=== PATIENT | female | born 1985 | race Caucasian/White ===

== ENCOUNTER 2024-05-22 22:22 | Emergency (ER) | payer BC, SELFPAY ==
[2024-05-22 22:28] VITALS: BP 154/72; PULSE 81; O2SAT 100; BMI 51.0
--- NOTE | 2024-05-22 22:44 | CT_ITS ---
[address] [address] Patient Name: YI HOLLINGSWORTH MRN: [facility]:[id number] date: 1985 Sex: F Assigned Patient Location: ER Current Patient Location: ER Accession/Order Number: [id number] Exam Date: 05/22/2024 23:31 Report Date: 05/23/2024 00:16 At the request of: SERINA WAGGONER Procedure: CT abdomen pelvis w con EXAM: CT Abdomen and Pelvis With Intravenous Contrast CLINICAL INDICATION: low abd pain, previous appendectomy TECHNIQUE: Axial computed tomography images of the abdomen and pelvis with intravenous contrast. This CT exam was performed using one or more of the following dose reduction techniques: automated exposure control, adjustment of the mA and/or kV according to patient size, and/or use of iterative reconstruction technique. COMPARISON: 2019 FINDINGS: LUNG BASES: Unremarkable. No mass. No consolidation. ABDOMEN: LIVER: Hepatic steatosis. GALLBLADDER AND BILE DUCTS: The gallbladder is removed. No ductal dilation. PANCREAS: Unremarkable. No mass. No ductal dilation. SPLEEN: 13 cm upper limits of normal ADRENALS: Unremarkable. No mass. KIDNEYS AND URETERS: 1.3 x 0.8 cm right UPJ stone with moderate hydronephrosis. Right-sided urothelial thickening. The distal ureter is decompressed STOMACH AND BOWEL: Unremarkable. No obstruction. No mucosal thickening. PELVIS: APPENDIX: No findings to suggest acute appendicitis. BLADDER: Bladder wall thickening. Query cystitis. REPRODUCTIVE: 5.3 cm right ovarian cyst. ABDOMEN and PELVIS: INTRAPERITONEAL SPACE: Unremarkable. No free air. No significant fluid collection. BONES/JOINTS: No acute fracture. No dislocation. SOFT TISSUES: umbilical hernia containing fat. VASCULATURE: Unremarkable. No abdominal aortic aneurysm. LYMPH NODES: Unremarkable. No enlarged lymph nodes. CT/CT abdomen pelvis w con IMPRESSION: 1. 1.3 x 0.8 cm right UPJ stone with moderate hydronephrosis. The size of the stone is unlikely to pass spontaneously. Urology consultation advised 2. Bladder wall thickening. Query cystitis. 3. 5.3 cm right ovarian cyst. Follow-up ultrasound in 2-3 menstrual cycles to ensure stability 4. Splenomegaly. Slight hepatic steatosis Electronically authenticated by: CHRISTIANO CARTER Date: 05/23/2024 00:16
--- NOTE | 2024-05-22 22:45 | ED.ABDPAIN1 ---
HPI - Abdominal Pain General Chief Complaint: Abdominal Pain Stated Complaint: ABDOMINAL PAIN Time Seen by Provider: 05/22/24 22:24 Source: patient Mode of arrival: walk-in History of Present Illness HPI narrative: 39-year-old female presents for abdominal pain. She has had it for the last 36 hours and is mostly in her right lower quadrant. No trauma or fever. No constipation or diarrhea. Sometimes she has some pain in the mid abdomen but mostly in the right lower quadrant. She has had previous appendectomy. Related Data Previous Rx's ?Medication ?Instructions ?Recorded cephalexin 500 mg capsule 500 mg PO QID 10 days #40 caps 05/23/24 hydrocodone 5 mg-acetaminophen 325 1 tab PO Q6H PRN pain 5 days #20 05/23/24 mg tablet tabs tamsulosin 0.4 mg capsule (Flomax) 0.4 mg PO DAILY #7 caps 05/23/24 Allergies Allergy/AdvReac Type Severity Reaction Status Date / Time sulfamethoxazole (From Allergy Mild Hives Verified 05/22/24 22:28 Bactrim) trimethoprim (From Bactrim) Allergy Mild Hives Verified 05/22/24 22:28 Review of Systems ROS Narrative A ten point review of systems is negative except as noted above. PFSH PFSH Social History Little interest or pleasure in doing things: not at all Feeling down, depressed, or hopeless: not at all Exam Narrative Exam Narrative: Nurses note and vital signs reviewed and patient is not hypoxic. General: The patient appears well and in no apparent distress. Patient is resting comfortably on cart. Skin: Warm, dry, no pallor noted. There is no rash noted. Head: Normocephalic, atraumatic Eye: Normal conjunctiva, no drainage Ears, Nose, Mouth, and Throat: oral mucosa is moist. Nares patent. Cardiovascular: Regular Rate and Rhythm Respiratory: Patient is in no distress, no accessory muscle use, lungs are clear to auscultation, no wheezing, rales or rhonchi Back: non-tender GI: Obese, soft, nondistended. Tenderness is mild in the right lower quadrant Musculoskeletal: The patient has no evidence of calf tenderness, no pitting edema, symmetrical pulses noted bilaterally Neurological: A&O, normal speech Psychiatric: Cooperative Constitutional Vital Signs, click to edit/add: Last Vital Signs Temp 98.9 F 05/22/24 23:23 Pulse 81 05/22/24 22:28 Resp 16 05/22/24 22:28 BP 154/72 H 05/22/24 22:28 Pulse Ox 97 05/22/24 23:06 O2 Del Method Room Air 05/22/24 23:06 Course Vital Signs Vital signs: Vital Signs Pulse Rate 81 05/22/24 22:28 Respiratory Rate 16 05/22/24 22:28 Blood Pressure 154/72 H 05/22/24 22:28 Pulse Oximetry 100 05/22/24 22:28 Oxygen Delivery Method Room Air 05/22/24 22:28 Temperature 98.9 F 05/22/24 23:23 Pulse Rate 81 05/22/24 22:28 Respiratory Rate 16 05/22/24 22:28 Blood Pressure 154/72 H 05/22/24 22:28 Pulse Oximetry 97 05/22/24 23:06 Oxygen Delivery Method Room Air 05/22/24 23:06 MDM - Abdominal Pain MDM Narrative Medical decision making narrative: Large proximal kidney stone is identified and she also has UTI. I have no suspicion of sepsis or pyelonephritis. Additionally there is a urinary tract infection and she was given IV Rocephin and prescribed [place], Flomax, and Keflex. She will follow-up promptly with urology. Treatment diagnosis and follow-up were discussed with the patient. Differential Diagnosis Differential diagnosis: Likely abdominal pain, calculus of kidney, constipation, gastroenteritis and small bowel obstruction Lab Data Attestation: I reviewed the patient's lab results. Labs: Lab Results 05/22/24 05/22/24 Range/Units 22:40 23:00 WBC 9.8 (4.0-11.0) 10^3/uL RBC 4.19 L (4.20-5.40) 10^6/uL Hgb 11.8 L (12.0-16.0) g/dL Hct 36.0 (36.0-48.0) % MCV 85.9 (81.0-99.0) fL MCH 28.2 (26.7-34.0) pg MCHC 32.8 (29.9-35.2) g/dL RDW 14.1 (11.0-15.0) % Plt Count 270 (150-450) 10^3/uL MPV 9.3 L (9.5-13.5) fL Neut % (Auto) 68.2 (43.0-75.0) % Lymph % (Auto) 17.7 L (20.5-60.0) % [place] % (Auto) 10.1 (1.7-12.0) % Eos % (Auto) 3.4 (0.9-7.0) % Baso % (Auto) 0.3 (0.2-2.0) % Neut # (Auto) 6.7 H (1.4-6.5) 10^3/uL Lymph # (Auto) 1.7 (1.2-3.8) 10^3/uL [place] # (Auto) 1.0 H (0.3-0.8) 10^3/uL Eos # (Auto) 0.3 (0.0-0.7) 10^3/uL Baso # (Auto) 0.0 (0.0-0.1) 10^3/uL Abs Immat Gran (auto) 0.03 (0.00-0.03) 10^3/uL Imm/Tot Granulo (auto) 0.3 (0.0-0.5) % Sodium 142 (136-145) mmol/L Potassium 4.0 (3.5-5.1) mmol/L Chloride 104 (98-107) mmol/L Carbon Dioxide 27.1 (21.0-32.0) mmol/L Anion Gap 14.9 BUN 11.0 (7.0-18.0) mg/dL Creatinine 0.90 (0.55-1.02) mg/dL Est GFR ( Amer) >60 (>=60 mL/min/1.73m^2) Est GFR (Non-Af Amer) >60 (>=60 mL/min/1.73m^2) BUN/Creatinine Ratio 12.2 Glucose 97 (74-106) mg/dL Calcium 8.6 (8.5-10.1) mg/dL Serum HCG, Qual Negative (NEGATIVE) Urine Color Lt. yellow (YELLOW) Urine Clarity Cloudy A (CLEAR) Urine pH 6.0 (5.0-9.0) Ur Specific [place] 1.025 (1.005-1.025) Urine Protein 30 A (NEG/TRACE) mg/dL Urine Glucose (UA) Negative (NEGATIVE) mg/dL Urine Ketones Negative (NEGATIVE) mg/dL Urine Occult Blood Large A (NEGATIVE) Urine Nitrite Positive A (NEGATIVE) Urine Bilirubin Negative (NEGATIVE) Urine Urobilinogen 0.2 (0.2-1.0) EU/dL Ur Leukocyte Esterase Moderate A (NEGATIVE) Urine RBC 5-10 A (0-2) #/HPF Urine WBC >100 A (NONE SEEN) #/HPF Ur Squamous Epith Cells Moderate A (NONE/RARE) #/LPF Urine Crystals None seen (None Seen) #/HPF Urine Bacteria Large A (NONE SEEN) #/HPF Urine Casts None seen (NONE SEEN) #/LPF Urine Mucus None seen (NONE SEEN) Ur Culture Indicated? Yes Imaging Data CT scan - abdomen: Radiologist's impression: ITS Impressions Abdomen/Pelvis CT 05/22/24 22:44 IMPRESSION: 1. 1.3 x 0.8 cm right UPJ stone with moderate hydronephrosis. The size of the stone is unlikely to pass spontaneously. Urology consultation advised 2. Bladder wall thickening. Query cystitis. 3. 5.3 cm right ovarian cyst. Follow-up ultrasound in 2-3 menstrual cycles to ensure stability 4. Splenomegaly. Slight hepatic steatosis Electronically authenticated by: CHRISTIANO CARTER Date: 05/23/2024 00:16 Discharge Plan Discharge Chief Complaint: Abdominal Pain Clinical Impression: Kidney stone, UTI (urinary tract infection), Cyst of right ovary Patient Disposition: Home, Self-Care Time of Disposition Decision: 01:56 Condition: Good Mode of Transportation: Private Vehicle Prescriptions / Home Meds: New hydrocodone-acetaminophen 5-325 mg tablet 1 tab PO Q6H PRN (Reason: pain) 5 Days Qty: 20 0RF tamsulosin [Flomax] 0.4 mg capsule 0.4 mg PO DAILY Qty: 7 0RF cephalexin 500 mg capsule 500 mg PO QID 10 Days Qty: 40 0RF Print Language: Maltese Instructions: Ovarian Cyst (ED), Kidney Stones (ED), Urinary Tract Infection in Women (ED) Referrals: BRUNA ANTOINE [Primary Care Provider] - 1 week Ryan Weeks MD [Physician] - As soon as possible
[2024-05-22 23:06] VITALS: O2SAT 97
[2024-05-22 23:11] LABS: Basophils Percent Auto 0.3 % (0.2-2.0); Eosinophils Absolute Auto 0.3 10^3/uL (0.0-0.7); Eosinophils Percent Auto 3.4 % (0.9-7.0); Hemoglobin 11.8 g/dL (12.0-16.0); Immature Granulocytes Abs Auto 0.03 10^3/uL (0.00-0.03); Immature Granulocytes Pct Auto 0.3 % (0.0-0.5); Lymphocytes Absolute Auto 1.7 10^3/uL (1.2-3.8); Lymphocytes Percent Auto 17.7 % (20.5-60.0); Mean Corpuscular HGB Conc 32.8 g/dL (29.9-35.2); Mean Corpuscular Hemoglobin 28.2 pg (26.7-34.0); Mean Corpuscular Volume 85.9 fL (81.0-99.0); Mean Platelet Volume 9.3 fL (9.5-13.5); Monocytes Percent Auto 10.1 % (1.7-12.0); Neutrophils Absolute Auto 6.7 10^3/uL (1.4-6.5); Neutrophils Percent Auto 68.2 % (43.0-75.0); Platelet Count 270 10^3/uL (150-450); Red Blood Count 4.19 10^6/uL (4.20-5.40); Red Cell Distribution Width 14.1 % (11.0-15.0); White Blood Count 9.8 10^3/uL (4.0-11.0)
[2024-05-22 23:11] LABS: Bilirubin Urine NEGATIVE (NEGATIVE); Blood Urine LARGE (NEGATIVE); Clarity Urine CLOUDY (CLEAR); Color Urine LT. YELLOW (YELLOW); Glucose Urine UA NEGATIVE (NEGATIVE); Ketones Urine NEGATIVE (NEGATIVE); Leukocyte Esterase Urine MODERATE (NEGATIVE); Nitrite Urine POSITIVE (NEGATIVE); Protein Urine 30 mg/dL (NEG/TRACE); Specific Gravity Urine 1.025 (1.005-1.025); Urobilinogen Urine 0.2 EU/dL (0.2-1.0)
[2024-05-22 23:17] LABS: Bacteria Urine LARGE #/HPF (NONE SEEN); Cast Seen? NONE SEEN #/LPF (NONE SEEN); Crystals Seen? None Seen #/HPF (None Seen); Mucus Urine NONE SEEN (NONE SEEN); Squamous Epithelial Cell Urine MODERATE #/LPF (NONE/RARE); Urine Culture Indicated YES; WBC Urine >100 #/HPF (NONE SEEN)
[2024-05-22 23:20] LABS: Anion Gap 14.9; BUN Creatinine Ratio 12.2; Calcium 8.6 mg/dL (8.5-10.1); Carbon Dioxide 27.1 mmol/L (21.0-32.0); Chloride 104 mmol/L (98-107); Estimated GFR (African America >60 (>=60 mL/min/1.73m^2); Estimated GFR (Non-African Ame >60 (>=60 mL/min/1.73m^2); Glucose 97 mg/dL (74-106); Sodium 142 mmol/L (136-145)
[2024-05-22 23:21] LABS: HCG Qualitative NEGATIVE (NEGATIVE); Internal Control Within Normal Limits
[2024-05-22 23:23] VITALS: TEMP 37.2
[2024-05-23] MEDS: CEFTRIAXONE 1,000 MG in 0.9 % SODIUM CHLORIDE 50 ML 100 MG IV (00:55)
[2024-05-23] MEDS: KETOROLAC TROMETHAMINE 30 MG/ML VIAL IVP (01:02)
[2024-05-23] MEDS: MORPHINE SULFATE 4 MG/ML VIAL IV (01:37)
== END 2024-05-23 02:15 | disposition home or self-care (01) ==
PROVIDERS: Emergency Provider Emergency Medicine; PCP Family Medicine
DX: N13.2 Hydronephrosis with renal and ureteral calculous obstruction (principal); N83.201 Unspecified ovarian cyst, right side; N39.0 Urinary tract infection, site not specified; Z90.49 Acquired absence of other specified parts of digestive tract
CPT/HCPCS: 36415; 74177; 80048; 81001; 84703; 85025; 87086; 87150; 87186; 96365; 96375; 99285; J0696; J1885; J2270; Q9967

== ENCOUNTER 2024-05-27 11:45 | Day surgery (SDC) | payer BC, SELFPAY ==
[2024-05-27] VITALS (13 sets, daily range): BP systolic 115–162; BP diastolic 55–110; PULSE 57–84; TEMP 36–36.3; O2SAT 94–100; BMI 52.5
--- NOTE | 2024-05-27 | XR_ITS ---
[address] [address] Patient Name: YI HOLLINGSWORTH MRN: [id number] date: 1985 Sex: F Assigned Patient Location: [facility] Current Patient Location: [facility] Accession/Order Number: [id number] Exam Date: 05/27/2024 13:45 Report Date: 05/27/2024 15:50 At the request of: DONALD MONTEIRO Procedure: XR urethrogram retrograde EXAM: XR urethrogram retrograde HISTORY: RIGHT KIDNEY STONE COMPARISON: None. TECHNIQUE: 5 fluoroscopic images. 22.2 mg FINDINGS: 5 images demonstrate retrograde injection of iodinated contrast into the right renal collecting system with placement of a double-J ureteral stent XR/XR urethrogram retrograde IMPRESSION: Ureteral stent placement Electronically authenticated by: DARRELL OLVERA Date: 05/27/2024 15:50
--- OUTSIDE RECORDS SUMMARY | 2024-05-27 12:06 | XMS_ITS | CCD ---
Author Organization [facility] Care Team Providers Care Center Machine Set Up Operator Name Role Phone Nalini Live Unavailable NONE, XXXX Primary Care Physician Unavailab DR GLO Quinonez Primary Care Unavailable SEBASTIEN LYNCH Consulting Unavailable LYNSEY CERVANTES Attending Unavailable LYNSEY CERVANTES Admitting Unavailable Sebastien Owens Attending Unavailable MD Etta Mario Primary Care Provider [phone] [facility]- Beth Espinoza Emergency Provider [phone] MD Nery Rush Admit Provider MD Nery Rush Attending Provider [phone] Blades, Nery Unavailable Drake Sánchez Unavailable Etta Mario Primary Care Unavailable Blades, Nery A Attending Unavailable Blades, Nery A Admitting Unavailable Etta Mario Primary Care Unavailable Blades, Nery A Attending Unavailable Blades, Nery A Admitting Unavailable ROSE GREEN Attending Unavailab RASHAAD Sanabria Attending Unavailable YI IRVING Attending Unavailable Glo Antoine MD Primary Care Provider Yi Irving NP Unavailable Allergies Allergy Classification Reported Allergen(s) Allergy Type Date of Onset Reaction(s) Facility (13 sources) Sulfamethoxazole / Trimethoprim Drug Allergy 3 rash, Unknown [facility] Work Phone: (1 source) Sulfamethoxazole / Trimethoprim Drug Allergy 3 [facility] (3 sources) Sulfamethoxazole; Translations: [sulfamethoxazole] Drug Allergy 3 [facility] (3 sources) Trimethoprim; Translations: [trimethoprim] Drug Allergy 3 [facility] Medications Current Medications Medication Drug Class(es) Dates Sig (Normalized) Sig (Original) acetaminophen 325 mg / HYDROcodone bitartrate 7.5 mg oral tablet (2 sources) Opioid Agonist Start: 07-04-2022 take 1 tablet by mouth every six hours as needed Hydrocodone-Acetam inophen Active 1 TAB PO Q6H 56 July 04, 2022 1 tab orally as needed acetaminophen 325 mg / oxyCODONE hydrochloride 5 mg oral tablet (1 source) Opioid Agonist Start: 06-13-2022 take 1 tablet by mouth every four hours for pain acetaminophen-oxyc odone 325 mg-5 mg Tab 1 tab(s), Oral, q4hr for pain, 12 tab(s), Refill(s) 0, [id number], 154, cm, 06/13/22 8:29:00 EST, Height/Length Dosing, 115, kg, 06/13/22 8:29:00 EST, Weight Dosing Start Date: 06/13/22 Status: Ordered [id number] 200 actuat albuterol 0.09 mg/actuat metered dose inhaler (2 sources) beta2-Adrenergic Agonist Start: 06-01-2023 End: 05-31-2024 take 2 puff(s) by inhalation every four hours for wheezing albuterol HFA 90 mcg/act inhaler Indications: Acute non-recurrent pansinusitis Inhale 2 puffs every 4 (four) hours if needed for wheezing 18 g 06/01/2023 05/31/2024 Active 12 hr buPROPion hydrochloride 90 mg / naltrexone hydrochloride 8 mg extended release oral tablet (2 sources) Opioid Antagonist, Aminoketone take 1 tablet by mouth every twenty-four hours Contrave 8-90 MG 1 tablet in the morning Orally Once a day Active busPIRone (2 sources) BuSpar Active cephalexin 500 mg oral capsule (1 source) Cephalosporin Antibacterial Start: 06-13-2022 End: 06-20-2022 take 1 capsule by mouth every twelve hours cephalexin 500 mg Cap 500 mg = 1 cap(s), Oral, q12hr, X 7 day(s), # 14 cap(s), Refills(s) 0, Pharmacy: [facility] 1429, 154, cm, 06/13/22 8:29:00 EST, Height/Length Dosing, 115, kg, 06/13/22 8:29:00 EST, Weight Dosing Start Date: 06/13/22 Stop Date: 06/20/22 Status: Ordered ethinyl estradiol 0.035 mg / norgestimate 0.25 mg oral tablet (1 source) Progestin, Estrogen Start: 03-12-2023 norgestimate-ethin yl estradiol (Ortho-Cyclen) 0.25-35 MG-MCG tablet Indications: Encounter for initial prescription of contraceptive pills , Irregular menses Take 1 tablet by mouth in the morning. 84 tablet 03/12/2023 Active gabapentin 300 mg oral capsule (14 sources) Anti-epileptic Agent Start: 07-04-2022 take 300 mg by mouth twice daily Gabapentin Active 300 MG PO Twice daily 60 July 04, 2022 12:00am Start: 07-03-2022 End: 07-04-2022 take 100 mg by mouth three times daily Gabapentin Discontinued 100 MG PO Three times daily July 03, 2022 12:00am July 04, 2022 1:38pm take 1 tablet by louis th every twenty-four hours Gabapentin 800 MG 1 tablet Orally Once a day Not-Taking Naltrexone (2 sources) Opioid Antagonist Naltrexone 380 MG as directed Intramuscular Active tiZANidine 4 mg oral capsule (2 sources) Central alpha-2 Adrenergic Agonist Start: take 4 mg by mouth twice daily Tizanidine Active 4 MG PO Twice daily July 04, 2022 12:00am Completed/Discontinued Medications Medication Drug Class(es) Dates Sig (Normalized) Sig (Original) cyclobenzaprine hydrochloride 10 mg oral tablet (2 sources) Muscle Relaxant Start: 07-03-2022 End: 07-04-2022 take 10 mg by mouth three times daily Cyclobenzaprine Discontinued 10 MG PO Three times daily July 03, 2022 12:00am July 04, 2022 1:38pm ibuprofen 800 mg oral tablet (12 sources) Nonsteroidal Anti-inflammatory Drug Start: 07-03-2022 End: 07-04-2022 take 800 mg by mouth three times daily Ibuprofen Discontinued 800 MG PO Three times daily July 03, 2022 12:00am July 04, 2022 1:38pm take 1 tablet by louis th every eight hours at mealtime as needed IBU 800 MG 1 tablet with food or milk as needed Orally every 8 hrs Not-Taking methylPREDNISolone 4 mg oral tablet (4 sources) Corticosteroid Start: 07-30-2022 Medrol (Nadeem) 4 MG as directed Orally Daily for 6 days Jul, Not-Taking ondansetron 8 mg oral tablet (11 sources) Serotonin-3 Receptor Antagonist Start: 03-26-2018 Zofran ODT 8 MG as directed Orally every 8 hrs for 2 days Mar, Not-Taking Sprintec 28 (11 sources) Sprintec 28 Not-Taking Problems Active Problems Problem Classification Problem Date Documented Date Episodic/Chronic Adjustment disorders (2 sources) Adjustment disorder; Translations: [Adjustment disorder, unspecified] Onset: 11-28-2022 11-28-2022 Chronic Osteoarthritis (4 sources) Arthritis of left hip; Translations: [Unilateral primary osteoarthritis, left hip] Onset: 09-25-2022 09-25-2022 Chronic Other nervous system disorders (2 sources) Unable to walk; Translations: [Difficulty in walking, not elsewhere classified] 07-03-2022 Chronic Other nervous system disorders (2 sources) Difficulty in walking, not elsewhere classified; Translations: [Difficulty in walking] 07-04-2022 Chronic Other nervous system disorders (2 sources) Chronic pain; Translations: [Other chronic pain] Onset: 09-25-2022 09-25-2022 Chronic Other non-traumatic joint disorders (3 sources) Pain in left hip; Translations: [PAIN IN LEFT HIP] Onset: 06-11-2022 Episodic Other nutritional; endocrine; and metabolic disorders (2 sources) Morbid obesity; Translations: [Morbid (severe) obesity due to excess calories] Onset: 09-25-2022 09-25-2022 Chronic Spondylosis; intervertebral disc disorders; other back problems (20 sources) Displacement of lumbar intervertebral disc without myelopathy; Translations: [Other intervertebral disc displacement, lumbosacral region] Onset: 09-25-2022 Chronic Unclassified (1 source) Other intervertebral disc displacement, lumbosacral region; Translations: [Other intervertebral disc displacement, lumbosacral region] Onset: 07-11-2022 Urinary tract infections (1 source) Urinary tract infectious disease; Translations: [Urinary tract infection, site not specified] Onset: 06-13-2022 Episodic Past or Other Problems Problem Classification Problem Date Documented Da te Episodic/Chronic Immunizations and screening for infectious disease (1 source) Contact with and (suspected) exposure to other viral communicable diseases; Translations: [Contact with and (suspected) exposure to other viral communicable diseases Z20.828] Onset: 01-12-2021 Resolved: 01-12-2021 Episodic Other nervous system disorders (2 sources) Paresthesia; Translations: [Paresthesia of skin] Onset: 09-25-2022 09-25-2022 Episodic Spondylosis; intervertebral disc disorders; other back problems (16 sources) Sciatica; Translations: [Sciatica, unspecified side] Onset: 06-13-2022 Episodic Results Test Name Value Interpretation Reference Range Facility Basophils Auto (Bld) [#/Vol] Ordered By: Nery Rush on 07-11-2022 Basophils (Bld) [#/Vol] 0.0 10*3/uL 0.0-0.2 [facility] Basophils/100 WBC Auto (Bld) Ordered By: Nery Rush on 07-11-2022 Basophils/100 WBC (Bld) 0.4 % . [facility] Complete Blood Count Auto Di ffon 07-11-2022 Basophils (Bld) [#/Vol] 0.0 10*3/uL Normal 0.0-0.2 [facility] Comment on above: Order Comment: PT IS NON FASTING Result Comment: PERF ORMED BY: [place] [address] PATHOLOGIST RACE BOARD ATTENDANT ZOE GUEVARA M.D. Performed By: #### C BC #### [facility] [address] [place] [address] Basophils/100 WBC (Bld) 0.4 % Normal . [facility] Comment on above: Order Comment: PT IS NON FASTING Performed By: #### C BC #### [facility] [address] [place] [address] Eosinophils (Bld) [#/Vol] 0.4 10*3/uL Normal 0.0-0.45 [facility] Comment on above: Order Comment: PT IS NON FASTING Performed By: #### C BC #### [address] Eosinophils/100 WBC (Bld) 4.2 % Normal . [facility] Comment on above: Order Comment: PT IS NON FASTING Performed By: #### C BC #### [address] Erythrocyte distribution width (RBC) [Ratio] 14.9 % Normal 11.9-15.3 [facility] Comment on above: Order Comment: PT IS NON FASTING Performed By: #### C BC #### [address] Hematocrit (Bld) [Volume fraction] 36.6 % Normal 34.0-46.4 [facility] Comment on above: Order Comment: PT IS NON FASTING Performed By: #### C BC #### [address] Hemoglobin (Bld) [Mass/Vol] 12.3 g/dL Normal 11.8-15.4 [facility] Comment on above: Order Comment: PT IS NON FASTING Performed By: #### C BC #### [address] Lymphocytes (Bld) [#/Vol] 1.9 10*3/uL Normal 1.00-4.8 [facility] Comment on above: Order Comment: PT IS NON FASTING Performed By: #### C BC #### [address] Lymphocytes/100 WBC (Bld) 18.7 % Normal . [facility] Comment on above: Order Comment: PT IS NON FASTING Performed By: #### C BC #### [address] MCH (RBC) [Entitic mass] 28.5 pg Normal 24.7-34.3 [facility] Comment on above: Order Comment: PT IS NON FASTING Performed By: #### C BC #### [address] [place] [address] [facility] MCV (RBC) [Entitic vol] 84.6 fL Normal 80-100 [facility] Comment on above: Order Comment: PT IS NON FASTING Performed By: #### C BC #### [facility] [address] Mean Corpuscular HGB Conc 33.7 g/dL Normal 32.0-35.0 [facility] Comment on above: Order Comment: PT IS NON FASTING Performed By: #### C BC #### [facility] [address] [place] [address] [place] Monocytes (Bld) [#/Vol] 0.7 10*3/uL Normal 0.0-0.8 [facility] Comment on above: Order Comment: PT IS NON FASTING Performed By: #### C BC #### [facility] [address] [place] [id number] [place] Monocytes/100 WBC (Bld) 6.8 % Normal . [facility] Comment on above: Order Comment: PT IS NON FASTING Performed By: #### C BC #### [facility] [address] [place] [address] [place] Neutrophils (Bld) [#/Vol] 7.0 10*3/uL Normal 1.8-7.7 [facility] Comment on above: Order Comment: PT IS NON FASTING Performed By: #### C BC #### [facility] [address] [place] [id number] [place] Neutrophils/100 WBC (Bld) 69.9 % Normal . [facility] Comment on above: Order Comment: PT IS NON FASTING Performed By: #### C BC #### [facility] [address] [place] [id number] [place] NRBC% 0.1 /100{WBC} Normal 0-0.5 [facility] Comment on above: Order Comment: PT IS NON FASTING Performed By: #### C BC #### [facility] [address] [place] [id number] [facility] Platelet mean volume (Bld) [Entitic vol] 7.2 fL Normal 6.3-10.7 [facility] Comment on above: Order Comment: PT IS NON FASTING Performed By: #### C BC #### [facility] [address] Platelets (Bld) [#/Vol] 334 10*3/uL Normal 150-450 [facility] Comment on above: Order Comment: PT IS NON FASTING Performed By: #### C BC #### [facility] [address] RBC (Bld) [#/Vol] 4.33 10*6/uL Normal 3.60-5.00 [facility] Comment on above: Order Comment: PT IS NON FASTING Performed By: #### C BC #### [facility] [address] WBC (Bld) [#/Vol] 10.0 10*3/uL Normal 3.8-11.6 [facility] Comment on above: Order Comment: PT IS NON FASTING Performed By: #### C BC #### [facility] [address] Eosinophils Auto (Bld) [#/Vo l]Ordered By: Nery Blades on 07-11-2022 Eosinophils (Bld) [#/Vol] 0.4 10*3/uL 0.0-0.45 [facility] Eosinophils/100 WBC Auto (Bl d)Ordered By: Nery Blades on 07-11-2022 Eosinophils/100 WBC (Bld) 4.2 % . [facility] Erythrocyte distribution wid th Auto (RBC) [Ratio]Ordered By: Nery Blades on 07-11-2022 Erythrocyte distribution width (RBC) [Ratio] 14.9 % 11.9-15.3 [facility] Hematocrit Auto (Bld) [Volum e fraction]Ordered By: Nery Blades on 07-11-2022 Hematocrit (Bld) [Volume fraction] 36.6 % 34.0-46.4 [facility] Hemoglobin [Mass/volume] in BloodOrdered By: Nery Blades on 07-11-2022 Hemoglobin (Bld) [Mass/Vol] 12.3 g/dL 11.8-15.4 [facility] Leukocytes [#/volume] correc ketan for nucleated erythrocytes in Blood by Automated counOrdered By: Nery Blades on 07-11-2022 WBC corrected for nucl RBC Auto (Bld) [#/Vol] 10.0 10*3/uL 3.8-11.6 [facility] Lymphocytes Auto (Bld) [#/Vo l]Ordered By: Nery Blades on 07-11-2022 Lymphocytes (Bld) [#/Vol] 1.9 10*3/uL 1.00-4.8 [facility] Lymphocytes/100 WBC Auto (Bl d)Ordered By: Nery Blades on 07-11-2022 Lymphocytes/100 WBC (Bld) 18.7 % . [facility] MCH Auto (RBC) [Entitic mass ]Ordered By: Nery Blades on 07-11-2022 MCH (RBC) [Entitic mass] 28.5 pg 24.7-34.3 [facility] MCHC Auto (RBC) [Mass/Vol]Or dered By: Nery Blades on 07-11-2022 MCHC (RBC) [Mass/Vol] 33.7 g/dL 32.0-35.0 [facility] MCV Auto (RBC) [Entitic vol] Ordered By: Nery Blades on 07-11-2022 MCV (RBC) [Entitic vol] 84.6 fL 80-100 [facility] Monocytes Auto (Bld) [#/Vol] Ordered By: Nery Blades on 07-11-2022 Monocytes (Bld) [#/Vol] 0.7 10*3/uL 0.0-0.8 [facility] Monocytes/100 WBC Auto (Bld) Ordered By: Nery Blades on 07-11-2022 Monocytes/100 WBC (Bld) 6.8 % . [facility] Neutrophils Auto (Bld) [#/Vo l]Ordered By: Nery Blades on 07-11-2022 Neutrophils (Bld) [#/Vol] 7.0 10*3/uL 1.8-7.7 [facility] Neutrophils/100 WBC Auto (Bl d)Ordered By: Nery Blades on 07-11-2022 Neutrophils/100 WBC (Bld) 69.9 % . [facility] Nucleated erythrocytes [Pres ence] in Blood by Automated countOrdered By: Nery Blades on 07-11-2022 Nucleated RBC Auto Ql (Bld) 0.1 /100{WBC} 0-0.5 [facility] Platelet mean volume Auto (B ld) [Entitic vol]Ordered By: Nery Blades on 07-11-2022 Platelet mean volume (Bld) [Entitic vol] 7.2 fL 6.3-10.7 [facility] Platelets Auto (Bld) [#/Vol] Ordered By: Nery Blades on 07-11-2022 Platelets (Bld) [#/Vol] 334 10*3/uL 150-450 [facility] RBC Auto (Bld) [#/Vol]Ordere d By: Nery Blades on 07-11-2022 RBC (Bld) [#/Vol] 4.33 10*6/uL 3.60-5.00 [facility] WBC Auto (Bld) [#/Vol]Ordere d By: Nery Blades on 07-11-2022 WBC (Bld) [#/Vol] 10.0 10*3/uL 3.8-11.6 [facility] Basic Metabolic Panelon 06-14 Anion gap [Moles/Vol] 13.3 mmol/L Normal 6.0-15.0 [facility] Comment on above: Performed By: #### B MP, CBC #### [facility] [address] [place] [address] [place] Calcium [Mass/Vol] 8.4 mg/dL Low 8.6-10.3 [facility] Comment on above: Performed By: #### B MP, CBC #### [facility] [address] Chloride [Moles/Vol] 107 mmol/L Normal 98-107 [facility] Comment on above: Performed By: #### B MP, CBC #### [facility] [address] CO2 [Moles/Vol] 21.9 mmol/L Normal 21.0-31.0 [facility] Comment on above: Performed By: #### B MP, CBC #### [facility] [address] Creatinine [Mass/Vol] 0.62 mg/dL Normal 0.60-1.20 [facility] Comment on above: Performed By: #### B MP, CBC #### [facility] [address] [place] [address] [place] Creatinine Clr Calc Pharmacy 148.42 [facility] Comment on above: Result Comment: PERF ORMED BY: [place] [address] PATHOLOGIST [employer]ACE BOARD ATTENDANT ZOE GUEVARA M.D. Performed By: #### B MP, CBC #### [facility] [address] GFR/1.73 sq M.predicted MDRD (S/P/Bld) [Vol rate/Area] mL/min/{1.73_m2} [facility] Comment on above: Performed By: #### B MP, CBC #### [facility] [address] Glucose [Mass/Vol] 133 mg/dL High 74-109 [facility] Comment on above: Result Comment: [place] Glucose Reference Range is dependent on time and content of last meal. Glucose of more than 200 mg/dL in a nonstressed, ambulatory subject supports the diagnosis of Diabetes Mellitus. ADA recommended reference range Performed By: #### B MP, CBC #### [facility] [address] [place] [address] [place] Potassium [Moles/Vol] 4.2 mmol/L Normal 3.5-5.1 [facility] Comment on above: Performed By: #### B MP, CBC #### [facility] [address] Sodium [Moles/Vol] 138 mmol/L Normal 136-145 [facility] Comment on above: Performed By: #### B MP, CBC #### [facility] [address] Urea nitrogen [Mass/Vol] 21 mg/dL Normal 7-25 [facility] Comment on above: Performed By: #### B MP, CBC #### [facility] [address] Basophils Auto (Bld) [#/Vol] Ordered By: Nery Blades on 07-04-2022 Basophils (Bld) [#/Vol] 0.0 10*3/uL 0.0-0.2 [facility] Basophils/100 WBC Auto (Bld) Ordered By: Nery Blades on 07-04-2022 Basophils/100 WBC (Bld) 0.2 % . [facility] Calcium [Mass/volume] in Ser um or PlasmaOrdered By: Nery Blades on 07-04-2022 Calcium [Mass/Vol] 8.4 mg/dL 8.6-10.3 [facility] Carbon dioxide, total [Moles /volume] in Serum or PlasmaOrdered By: Nery Blades on 07-04-2022 CO2 [Moles/Vol] 21.9 mmol/L 21.0-31.0 [facility] Chloride [Moles/volume] in S monika or PlasmaOrdered By: Nery Blades on 07-04-2022 Chloride [Moles/Vol] 107 mmol/L 98-107 [facility] Complete Blood Count Auto Di ffon 07-04-2022 Basophils (Bld) [#/Vol] 0.0 10*3/uL Normal 0.0-0.2 [facility] Comment on above: Result Comment: PERF ORMED BY: [place] [address] PATHOLOGIST RACE BOARD ATTENDANT ZOE GUEVARA M.D. Performed By: #### B MP, CBC #### [facility] [address] Basophils/100 WBC (Bld) 0.2 % Normal . [facility] Comment on above: Performed By: #### B MP, CBC #### [facility] [address] Eosinophils (Bld) [#/Vol] 0.0 10*3/uL Normal 0.0-0.45 [facility] Comment on above: Performed By: #### B MP, CBC #### [facility] [address] [place] [address] [place] Eosinophils/100 WBC (Bld) 0.0 % Normal . [facility] Comment on above: Performed By: #### B MP, CBC #### [address] Erythrocyte distribution width (RBC) [Ratio] 15.2 % Normal 11.9-15.3 [facility] Comment on above: Performed By: #### B MP, CBC #### [address] Hematocrit (Bld) [Volume fraction] 35.3 % Normal 34.0-46.4 [facility] Comment on above: Performed By: #### B MP, CBC #### [address] Hemoglobin (Bld) [Mass/Vol] 12.0 g/dL Normal 11.8-15.4 [facility] Comment on above: Performed By: #### B MP, CBC #### [address] Lymphocytes (Bld) [#/Vol] 0.6 10*3/uL Low 1.00-4.8 [facility] Comment on above: Performed By: #### B MP, CBC #### [place] [address] [place] Lymphocytes/100 WBC (Bld) 6.3 % Normal . [facility] Comment on above: Performed By: #### B MP, CBC #### [address] MCH (RBC) [Entitic mass] 28.4 pg Normal 24.7-34.3 [facility] Comment on above: Performed By: #### B MP, CBC #### [address] [place] [address] [place] MCV (RBC) [Entitic vol] 83.6 fL Normal 80-100 [facility] Comment on above: Performed By: #### B MP, CBC #### [address] Mean Corpuscular HGB Conc 34.0 g/dL Normal 32.0-35.0 [facility] Comment on above: Performed By: #### B MP, CBC #### [address] Monocytes (Bld) [#/Vol] 0.1 10*3/uL Normal 0.0-0.8 [facility] Comment on above: Performed By: #### B MP, CBC #### [address] Monocytes/100 WBC (Bld) 1.4 % Normal . [facility] Comment on above: Performed By: #### B MP, CBC #### [address] Neutrophils (Bld) [#/Vol] 9.0 10*3/uL High 1.8-7.7 [facility] Comment on above: Performed By: #### B MP, CBC #### [address] Neutrophils/100 WBC (Bld) 92.1 % Normal . [facility] Comment on above: Performed By: #### B MP, CBC #### [address] NRBC% 0.0 /100{WBC} Normal 0-0.5 [facility] Comment on above: Performed By: #### B MP, CBC #### [address] Platelet mean volume (Bld) [Entitic vol] 7.0 fL Normal 6.3-10.7 [facility] Comment on above: Performed By: #### B MP, CBC #### [address] Platelets (Bld) [#/Vol] 309 10*3/uL Normal 150-450 [facility] Comment on above: Performed By: #### B MP, CBC #### [facility] [address] RBC (Bld) [#/Vol] 4.23 10*6/uL Normal 3.60-5.00 [facility] Comment on above: Performed By: #### B MP, CBC #### [facility] [address] WBC (Bld) [#/Vol] 9.8 10*3/uL Normal 3.8-11.6 [facility] Comment on above: Performed By: #### B MP, CBC #### [facility] [address] Creatinine [Mass/volume] in Serum or PlasmaOrdered By: Nery Rush on 07-04-2022 Creatinine [Mass/Vol] 0.62 mg/dL 0.60-1.20 [facility] Eosinophils Auto (Bld) [#/Vo l]Ordered By: Nery Blades on 07-04-2022 Eosinophils (Bld) [#/Vol] 0.0 10*3/uL 0.0-0.45 [facility] Eosinophils/100 WBC Auto (Bl d)Ordered By: Nery Blades on 07-04-2022 Eosinophils/100 WBC (Bld) 0.0 % . [facility] Erythrocyte distribution wid th Auto (RBC) [Ratio]Ordered By: Nery Rush on 07-04-2022 Erythrocyte distribution width (RBC) [Ratio] 15.2 % 11.9-15.3 [facility] Glucose [Mass/volume] in Ser um or PlasmaOrdered By: Nery Rush on 07-04-2022 Glucose [Mass/Vol] 133 mg/dL 74-109 [facility] Comment on above: ADA recommended refe rence rangeRandom Glucose Reference Range is dependent on time and content of last meal. Glucose of more than 200 mg/dL in a nonstressed, ambulatory subject supports the diagnosis of Diabetes Mellitus. Hematocrit Auto (Bld) [Volum e fraction]Ordered By: Nery Rush on 07-04-2022 Hematocrit (Bld) [Volume fraction] 35.3 % 34.0-46.4 [facility] Hemoglobin [Mass/volume] in BloodOrdered By: Nery Rush on 07-04-2022 Hemoglobin (Bld) [Mass/Vol] 12.0 g/dL 11.8-15.4 [facility] Laboratory - Chemistry and C hemistry - challengeOrdered By: Nery Rush on 07-04-2022 GFR/1.73 sq M.predicted MDRD (S/P/Bld) [Vol rate/Area] mL/min/{1.73_m2} [facility] Leukocytes [#/volume] correc ketan for nucleated erythrocytes in Blood by Automated counOrdered By: Nery Rush on 07-04-2022 WBC corrected for nucl RBC Auto (Bld) [#/Vol] 9.8 10*3/uL 3.8-11.6 [facility] Lymphocytes Auto (Bld) [#/Vo l]Ordered By: Nery Rush on 07-04-2022 Lymphocytes (Bld) [#/Vol] 0.6 10*3/uL 1.00-4.8 [facility] Lymphocytes/100 WBC Auto (Bl d)Ordered By: Nery Rush on 07-04-2022 Lymphocytes/100 WBC (Bld) 6.3 % . [facility] MCH Auto (RBC) [Entitic mass ]Ordered By: Nery Rush on 07-04-2022 MCH (RBC) [Entitic mass] 28.4 pg 24.7-34.3 [facility] MCHC Auto (RBC) [Mass/Vol]Or dered By: Nery Rush on 07-04-2022 MCHC (RBC) [Mass/Vol] 34.0 g/dL 32.0-35.0 [facility] MCV Auto (RBC) [Entitic vol] Ordered By: Nery Rush on 07-04-2022 MCV (RBC) [Entitic vol] 83.6 fL 80-100 [facility] Monocytes Auto (Bld) [#/Vol] Ordered By: Nery Blades on 07-04-2022 Monocytes (Bld) [#/Vol] 0.1 10*3/uL 0.0-0.8 [facility] Monocytes/100 WBC Auto (Bld) Ordered By: Nery Blades on 07-04-2022 Monocytes/100 WBC (Bld) 1.4 % . [facility] Neutrophils Auto (Bld) [#/Vo l]Ordered By: Nery Blades on 07-04-2022 Neutrophils (Bld) [#/Vol] 9.0 10*3/uL 1.8-7.7 [facility] Neutrophils/100 WBC Auto (Bl d)Ordered By: Nery Blades on 07-04-2022 Neutrophils/100 WBC (Bld) 92.1 % . [facility] No Panel InformationOrdered By: Nery Blades on 07-04-2022 Pharmacy Creatinine Clearance (Chem 148.42 [facility] Nucleated erythrocytes [Pres ence] in Blood by Automated countOrdered By: Nery Blades on 07-04-2022 Nucleated RBC Auto Ql (Bld) 0.0 /100{WBC} 0-0.5 [facility] Platelet mean volume Auto (B ld) [Entitic vol]Ordered By: Nery Blades on 07-04-2022 Platelet mean volume (Bld) [Entitic vol] 7.0 fL 6.3-10.7 [facility] Platelets Auto (Bld) [#/Vol] Ordered By: Nery Blades on 07-04-2022 Platelets (Bld) [#/Vol] 309 10*3/uL 150-450 [facility] Potassium [Moles/volume] in Serum or PlasmaOrdered By: Nery Blades on 07-04-2022 Potassium [Moles/Vol] 4.2 mmol/L 3.5-5.1 [facility] RBC Auto (Bld) [#/Vol]Ordere d By: Nery Blades on 07-04-2022 RBC (Bld) [#/Vol] 4.23 10*6/uL 3.60-5.00 [facility] Serum or plasma anion gap de terminationOrdered By: Nery Rush on 07-04-2022 Anion gap [Moles/Vol] 13.3 mmol/L 6.0-15.0 [facility] Sodium [Moles/volume] in Ser um or PlasmaOrdered By: Nery Blades on 07-04-2022 Sodium [Moles/Vol] 138 mmol/L 136-145 [facility] Urea nitrogen [Mass/volume] in Serum or PlasmaOrdered By: Nery Rush on 07-04-2022 Urea nitrogen [Mass/Vol] 21 mg/dL 7-25 [facility] WBC Auto (Bld) [#/Vol]Ordere d By: Nery Rush on 07-04-2022 WBC (Bld) [#/Vol] 9.8 10*3/uL 3.8-11.6 [facility] HCG ( test) IA.rapi d Ql (U)Ordered By: Manny Keene on 07-03-2022 HCG ( test) Ql (U) Negative [facility] HCG,Urineon 07-03-2022 Beta HCG ( test) Ql (U) Negative Normal [facility] Comment on above: Result Comment: PERF ORMED BY: [place] [address] PATHOLOGIST [employer]ACE BOARD ATTENDANT ZOE GUEVARA M.D. Performed By: #### U HCG #### [address] XR lumbar spine 1Von 023 XR lumbar spine 1V [facility] [place] [address] XRay Report Signed Patient: Yi Palomino MR#: [id number] : 1985 Acct:[id number] Age/Sex: 37 / F ADM Date: 07/03/22 Loc: Room: 6A4398-3 Type: ADM IN Attending Dr: Nery Rush MD Copies to: Nery Rush MD Ordering Provider: Nery Rush MD Date of Service: 07/03/22 XR/XR lumbar spine 1V: L5-S1 DISCECTOMY Fluoroscopic assessment for L5-S1 discectomy HISTORY:L5-S1 discectomy 2 image was obtained. Cumulative Air Kerma in mGy: 4.7 mGy Lumbar localization performed. XR/XR lumbar spine 1V IMPRESSION: Lumbar localization Impression dictated by: Steven Nicole M.D.07/03/2022 7:09 PM Dictation Location: [place] [address] Transcribed By: [facility] 07/03/221908 Dictated By: Steven Nicole DO 07/03/221907 Signed By: 07/03/221908 [facility] C Urineon 06-15-2022 Bacteria identified Cx Nom (U) Microbiology PROCEDURE: Urine Culture [R1] SOURCE: U CleanCatch BODY SITE: COLLECTED DATE/TIME: 06/13/2022 10:37 EST RECEIVED DATE/TIME: 06/13/2022 12:06 EST START DATE/TIME: 06/13/2022 12:06 EST FREE TEXT SOURCE: Sebastien Owens DO, DO, Kevin M. FINAL REPORTS Final Report [] Verified Date/Time: 06/15/2022 09:06 EST >100,000 cfu/ml Escherichia coli SUSCEPTIBILITY RESULTS LEGEND: S=Susceptible, N/R=Not Reported, Blank=Data not available, or drug not advisable or tested, I=Intermediate, ESBL=Extended spectrum beta-lactamase, R=Resistant, TFG=Thymidine-depe ndent strain, SACHA=Beta-lactamas e positive, MICHEL=mcg/m;(mg/L), S*=Predicted susceptible interp, R*=Predicted resistant interp EC Antibiotic MICHEL Dilutn MICHEL Interp Amikacin <=16 S Ampicillin <=8 S Ampicillin/ <=8/4 S Sulbactam Aztreonam <=4 S Cefazolin <=2 S Cefepime <=2 S Cefoxitin <=8 S Ceftazidime <=1 S Ceftazidime/ <=8 S Avibactam Ceftriaxone <=1 S Ciprofloxacin <=1 S Ertapenem <=0.5 S Gentamicin <=4 S Levofloxacin <=2 S Meropenem <=1 S Nitrofurantoin <=32 S Piperacillin/ <=16 S Tazobactam Tetracycline <=4 S Tigecycline <=2 S Tobramycin <=4 S Trimethoprim/ <=2/38 S Sulfa Performing Locations R1: This test was performed at: [facility], [address] [place] [address], [phone] , , [facility] Comment on above: Performed By: #### 1 [id number], [id number] #### [facility] [address] [place] [address] Coding Summary.on 06-15-2022 Coding Summary. [id number] 4DWm6yRm+PGhlYWQ+P S8RVOFjG45syNTsoF6 PA0gLFX8RCFACHZIRT V7VPD1fcTK4PMkwD9S ybiAv WzzuwLKkGE86RAa1YW P6dLbwEFdvaK5csSCx G6x4MbRwCH54vL77TS vlOKNbTsL1VbQrmbkg bWFy F9fnCjAhaADiMfp+PH RhYmxlIHdpZHRoPScx BYAzLkIcmEbxFO3zPv 9yZGVyLWNvbGxhcHNl OiBj r5xxHWAuJQilAV4rwS ugP1OayPV5VICrc0v3 Ps52aUL+VLXfVMF7iV suXBova302SwIcz9ek IDM3 cWCkZZfwNJC1N98tj5 T3NMJjMESzDBA6vSW0 fU7tjVogimmxO0WbnF GbIiU7DBM6iMCphT5t bGln pzfugG2mKpu+Q09ESU 6KFLBPPV7GIip4Q7Ov PjwvdHI+GT58LDKrEF 21fNEcxNOsf2gvzWx4 JzEw VWYpJNX6mXnmNYeuq2 TrRJNwD87yrPMcf5N6 IGNvbGxhcHNlOyBlbX F9nE3qCIwcbbnml5bt dzsn Mpcam9lvog94iA60K8 5fIVgwKUSpBUZ4KDGm YYMszBfotx9rcK1vLz 8+KDocp6qrb5qtgAy4 IjIw GCZmcaAohXywZHJ8t5 QaBn19Q3UizHtys6Tg Npn7rs11kLEft6A3kL R4GKyfUBFfiO9vVYad ZnQ6 INWiXhSjiL46jZJhDI qeTf6diLwwnFezFW8t DEKfnidpCPXhkM1zNN PjnWDtdYcqRE2hSFRz bjtm w660GpUeTBQ4GPUxyU IyI5IlxE6zKjMlXWBi MHKvB7PdmNXfPXuaE6 82RBwwUhX4OZTzomOe Y2Fs GNYteKlsAqZ4r7A1Gx 5Cv7FrptlhLET6QBwa NZFgKgKhVqXiVtX7W1 BmIgn8DNEtqUitOK2v J3Bh GCMeistbbffhvIX2FS UuLXOfrB78sKTjCGlm Wx7ik6B5t689VAEmTT MvaA88Vj5vcRxiZLLr dCBU bW4tspngh7ynkrgeUb JsYCRhOOg4DJe0XYTv xBpnUvFcCNL3HaW8SK V2nTJatH7ecFbtkerg dG9w Oyc+U42rpI9ySGV8IV L0linrTYJmrjWoLX12 RR02D8NsXwrwvSBbtG U+VBYgyrFfqUnfCK4q YmFj m5uqr2GnMGojM3QvOZ EjBMvxIzz2FKNeHSA8 oTH9pB4hRPLpWTsfe6 K6oCP7P5KpubEzbz9w b2xs DGEgGAlqV28zfYDee6 M1CLVwpYM9CGGezFlm FaAfjA39Mll+PGNvbG icl5VgZnmuv9atg8hc dGg9 IjMwJSIgdmFsaWduPS A7z9UxNd68B63yTZjh ZHRoPSIxNSUiIHZhbG kzhk6unW8bLr5+PGNv bCB3 xIR0mA4pPRSqYfV3EI jgN507GwYkmIGxTbhn a0qvq3ycjMa0KqKvHJ IhdbNdmYrqUKG1r9Wt Lz48 W09gVCrvMNBmSTDlQR VlYZBawAubgs3zeC0p Ii8+JJ6lp8qirm11bU 48dHI+HDXeTMB8vOxm PSdw QVHpyU2gWGyyPdH2WB OaLmKtnP14xQVxPDmz Vd5ipRjeyLofHF1kAW Ulnivmb995SjCdz3dg IDEw zNThRIhqCTK2G14fn8 F5NIRhOXUpMKT7iZF9 aA9nwZkwsnphsUZipD sgdmVydGljYWwtYWxp Z246 IHRvcDsnPlBhdGllbn MbUqNiOKy9I3ZfYxo3 IXFuqUhbSF3bkGRgCR wpFj6moPvetUnqRJ2q NTBp mwqyw375JzTod0tzXL JvcADpVLneITD7V37y g1X9GMOfWPLhPJC0sE U3pU9kwZidniqmvUXp dDsg dmVydGljYWwtYWxpZ2 46IHRvcDsnPkJpcnRo JVKkhAG3NI67BT76jL Yjq1Z1cIZ2I8UiDXTi bmct mkwjvCK2YYVhKZMrxT 65Tn5ccMupHk7iSIHs APR4QXHtaGUkC3VdgI 1hIsSpTVVbRHInQ9Dv eHQt LFwtB599RDloDdV3FU OijbNlY5EfFMUpvVnk TjR2t7W7Pj8OX7Z6NJ 72AR78tKNur5A7hGQ2 J3Bh CYKxtrsyydxylMB1GD FkYLWdxY76Zx8hmOaf Up8hTUOkTVP1DTVonK RfP1IlqJ1iKpIkSKYy MDAw W5QfcDYoLCnmA510NC kxQzL5FUZwgwMxA5Mi MGXgtIxtRaR2m8N6Py 2REXa1LZ91AG80kTTy c3R5 nFU7I9TfVPIuzmisvb lejVU3HFTlDSPuqY46 Qh1yeHypBv9zLWKeZS Z6EWIkjXJgD2EvtU3v OiAj LGRhFCNiA4CkhPKiGD ljJ312TTboLyR4OYGz sqXgH2ChUMJkcKyhXh A1f1S9Fv4HUYVbPV71 IFR5 mBY8ZG29AB06H1MsWf wvdGFibGU+PHRhYmxl IHdpZHRoPScxMDAlJy LmsUzqIM5zPo1mJPTe LWNv mQaiwRWeXyGhl3paAV ShYFmjZY1bnEtxS3So xRD2NSRba4n8Pi08G9 9iO6ZtnSC+PGNvbCB3 aWR0 pY2dUiJgHtY9GPivB9 65UeJecINnUnvgp3nd h5dnvAs3MfQ9SLJzaz HziZqiKXG2o7WqDd94 Y29s IHdpZHRoPSIxNSUiIH CfrFauyp5dzL1xIr8+ NXQfqAA7vSO2fB6gMb SzIiC7XVbqY472XbVq cCIv Jbwin7cyw9zzrYq3Fx IwJSIgdmFsaWduPSJ0 e6EpZk88D5CxeXfdw9 RxYxv8pi48zZUip4R6 bGU9 D1UtYYTcpmcdhAMmpJ qkGP4bCIPwlqhtZGMw vB1sLZUhU6s6ZrFnQt N9HYabV9BfzeF0WAPa cHQg KKavHJG9Q20bn3M4BQ TgCVPrXNI3iGK7rH2t bGlnbjogbGVmdDsgdm RsmZayEXekAAnjA720 IHRv jJiqVCViqR4pCOUibM ZzjOerVC7oZWMidozm Ad3XFtFCBcBaYNVDNu JBAWJ4L3XhTxw1SXUf dHls TO7qmBAqLBdrAw7lsY opqNigYE8eORFxnvgu YDBaaC0pWTTksPUhiD ywLM9wGBUwlyofk399 OiAx NGD6LLTzjMReL9MviS 5yBuFzABDzGDMmH2Xy lSReKCzbP435HWugOx U8VGXjeeFsR1RtWMDk aWdu XtR7y1G5Cg5mZn8yHH 8eTAi2QB63IM43wCRx m0G2uVF5E1IhFQYpmy xdlioxcOW4REYaQSOk aW47 gRDhYVouLm7so9F3h1 05LUXgWPRfzJ61Xe6i tVumCUPylWQOiT9xwy lgg8wpqnhkJnRsMKOc MDt0 FSx9MQEnaScuWiIbSM B1IjU9IKY2yGStjW6u hCgrdfsxtF5rPwn+Mz KoVQTvcsT9L8ZnFkm5 ZCBz pUepCP2xoLGpFSawAh 7koEfizVhjWZ6cILQd fppwCSOxhB8yXLAbwJ QvbWxvXU1jRPAswlkg b250 UoQlBYM0XKNldCHoM3 KwcC7sZlBuOEOlVAXl G7EqcUYsUFbeR182ZB npCeY9OQBdfeUxZ0Bh LWFs yJjrPoC5z9K2Ok7EYA 7oqHA3A2YyFjj4MABs eJuqFT2shGBvZZjhKw 5snUpppUcqCY2yLLNr bjtw BNAbdL2lIEKidQUgyL vlSR2vEOElqdykb202 FgFzMAF1XJHldNKiS5 BewE7nRvWhINTaTFQx O3Rl oAOtVXuxY217FEvpGu X2PWGpbyXyB4VcCBCx tFkcWlA6b1D7Dh6LiB YbS8DoW5n9X2DlCvkj dHI+ RL43CQUbXE11fCWawM Qni4hbmZp0KvEdJMHu ZHV6sRbiTNayy8UvEM CoW07sxNAet1F0QHRm bGxh tNFfDxNpgIF3dD3lER sbkbsbr6crxmkaZoyr s9qcam53sX08K77cBN dpZHRoPSIzMCUiIHZh bGln tf7epR7zLr8+PGNvbC L0kWU9rL6hRgFiKcF9 GQjvV821VlAvoIDuUi psq5cgu5lkmZl9VhYp JSIg fqVcgOpoNPF6e6HqPv 96R59wVUvdBGPbEPTt ASQvJFCamIyraw5xjT 9wIi8+RW8re2vglk67 cD48 dHI+LKOfRII7qLasMG daLCNefB6dADopOoR5 VULyUdNjiR66uQPrDS tnWn6rjSyahMraAQ9n NTBp hzmvg389CyChx6lePO PsaLCaBKxqQKG8D71b i1C5QOBsMHZcOED0sV T3nE2fbHuitcqrjAQs dDsg dmVydGljYWwtYWxpZ2 46IHRvcDsnPlBoeXNp O5zazpAYMG8nLnplyS Q+WKQtYKO5rVzqBOja YWRk aZ9pKNTeY5n5IuFtDh G9BGvpN7DkumG1MAAw dWEsBQFzwKZHsJ0dmz vvf9hcwvfwHiZmLMKg MDt0 LHc0PONdbIruKaFqMN O5MpO8NUG5eQGmyB2r dEdtdxbojH3dEwl+Rk lOOjwvdGQ+PHRkIHN0 eWxl ILakMDHfdH2eGLThB0 n9KrJlVjT2DUunM3Am oqG5AMKeuUUgGLMlrR HDhL4yiixly2iylgyy IzAw UIUzZTc9SFs9BEEqwW smNlRvOXA8DkV6FQU4 wCAtnB9vhQarsjcfsY 9wOyc+TVJOOjwvdGQ+ PHRk EZF7jEivZAduKFKlbM 0bJYYgF7b8FyEqGpL2 KQtsB5BjiaT7UYEgfK QmCANvyIWSpO5ifkvx b2xv orqwTqElKVVqNEb6DY h6JAJhgGasTlJkYJT2 RcR7QNF5pILplB6llJ lnvduomT9tDal+UGF5 ZXI6 CX69RB85H4PmHxrgjX FibGU+PHRhYmxlIHdp ZHRoPScxMDAlJyBzdH siEK3tZi0iMARdWSUb bGxh cHNl (more content not included)... Normal [facility] Auto Diffon 06-13-2022 Basophils/100 WBC (Bld) 1.0 % Normal 0.0-2.0 [facility] Comment on above: Order Comment: Order Added by Discern Expert. Performed By: #### 2 [id number], [id number], [id number], 7345366, [id number] #### [facility] [address] [place] [address] Basophils/Leukocytes Auto (Bld) [Pure # fraction] 0.1 E9/L Normal 0.0-0.2 [facility] Comment on above: Order Comment: Order Added by Discern Expert. Performed By: #### 2 [id number], 0366725, [id number], 2177588, 2380067 #### [facility] [address] [place] [address] Eosinophils/100 WBC (Bld) 1.5 % Normal 0.0-8.0 [facility] Comment on above: Order Comment: Order Added by Discern Expert. Performed By: #### 2 5053989, 0546493, 63428326, 5647163, 2252519 #### [facility] [address] [place] [address] Eosinophils/Leukocytes Auto (Bld) [Pure # fraction] 0.2 E9/L Normal 0.0-0.5 [facility] Comment on above: Order Comment: Order Added by Discern Expert. Performed By: #### 2 0428906, 1611983, [id number], 8312290, 1204938 #### [facility] [address] [place] [address] Lymphocytes/100 WBC (Bld) 19.9 % Normal 14.0-50.0 [facility] Comment on above: Order Comment: Order Added by Discern Expert. Performed By: #### 2 2807117, 2817341, 64705854, 1632541, 7866820 #### [facility] [address] [place] [address] Lymphocytes/Leukocytes Auto (Bld) [Pure # fraction] 2.5 E9/L Normal 1.0-4.0 [facility] Comment on above: Order Comment: Order Added by Discern Expert. Performed By: #### 2 9022512, 4670738, 23110925, 5979883, 0263245 #### [facility] [address] [place] [address] Monocytes/100 WBC (Bld) 5.6 % Normal 4.0-14.0 [facility] Comment on above: Order Comment: Order Added by Discern Expert. Performed By: #### 2 1932544, 8692646, 31397818, 2890845, 3737863 #### [facility] [address] [place] [address] Monocytes/Leukocytes Auto (Bld) [Pure # fraction] 0.7 E9/L Normal 0.2-1.0 [facility] Comment on above: Order Comment: Order Added by Discern Expert. Performed By: #### 2 0179875, 0648327, 26128142, 4718942, 7781171 #### [facility] [address] [place] [address] Neutrophils/100 WBC (Bld) 72.0 % Normal 36.0-75.0 [facility] Comment on above: Order Comment: Order Added by Discern Expert. Performed By: #### 2 7111074, 9250720, 27638425, 3746347, 8693563 #### [facility] [address] [place] [address] Neutrophils/Leukocytes Auto (Bld) [Pure # fraction] 9.2 E9/L High 2.0-7.5 [facility] Comment on above: Order Comment: Order Added by Discern Expert. Performed By: #### 2 1589791, 1838434, 89387116, 3060274, 3759709 #### [facility] [address] [place] [address]9528 B hCG Qualon 06-13-2022 Beta hCG Ql Negative Normal [facility] Comment on above: Performed By: #### 2 7186289, 1726520, 11096956, 3753240, 9098790 #### [facility] [address] [place] [address] BMPon 06-13-2022 Creatinine [Mass/Vol] 0.8 mg/dL Normal 0.5-1.3 [facility] Comment on above: Performed By: #### 2 6404469, 7877396, 81101564, 7455646, 9918463 #### [facility] [address] [place] [address] Urea nitrogen [Mass/Vol] 21 mg/dL Normal 5-21 [facility] Comment on above: Performed By: #### 2 3723880, 5293978, 57096526, 3761868, 9589069 #### [facility] [address] [place] [address] Urea nitrogen/Creatinine [Mass ratio] 26 No Units High 10-20 [facility] Comment on above: Performed By: #### 2 3665645, 2825079, 62194554, 8800637, 8937749 #### [facility] [address] [place] [address] Anion gap [Moles/Vol] 14 mmol/L Normal 6-16 [facility] Comment on above: Performed By: #### 2 0140181, 8017453, 32470983, 0189132, 5495499 #### [facility] [address] [place] [address] Calcium [Mass/Vol] 9.0 mg/dL Normal 8.9-11.1 [facility] Comment on above: Performed By: #### 2 0836530, 6777599, 67675624, 4662340, 3856867 #### [facility] [address] [place] [address] Chloride [Moles/Vol] 103 mmol/L Normal 101-111 [facility] Comment on above: Performed By: #### 2 9595266, 3530230, 95759694, 8682501, 0480239 #### [facility] [address] [place] [address] CO2 [Moles/Vol] 22 mmol/L Normal 21-[address] [facility] Comment on above: Performed By: #### 2 5526400, 5144031, 02785117, 0839950, 2604905 #### [facility] [address] [place] [address] Glucose [Mass/Vol] 90 mg/dL Normal 55-199 [facility] Comment on above: Result Comment: If t his glucose result represents a fasting glucose, interpretation should refer to the following reference range: 55-99 mg/dL Performed By: #### 2 9694413, 7955349, 51671230, 6682475, 6402733 #### [facility] [address] [place] [address] Potassium [Moles/Vol] 4.2 mmol/L Normal 3.5-5.3 [facility] Comment on above: Performed By: #### 2 5867685, 2002010, 25419419, 6490350, 3942170 #### [facility] [address] [place] [address] Sodium [Moles/Vol] 135 mmol/L Normal 135-145 [facility] Comment on above: Performed By: #### 2 7402512, 6754813, 86331069, 9267708, 5654265 #### [facility] [address] [place] [address] CBC w/ Auto Diffon 3 Erythrocyte distribution width (RBC) [Ratio] 14.9 % High 10.9-14.2 [facility] Comment on above: Performed By: #### 2 4125492, 4664530, 42720986, 2117959, 8604193 #### [facility] [address] [place] [address] Hematocrit (Bld) [Volume fraction] 40.2 % Normal 34.0-46.0 [facility] Comment on above: Performed By: #### 2 2651234, 1325662, 34710682, 0555282, 4579159 #### [facility] [address] [place] [address] Hemoglobin (Bld) [Mass/Vol] 13.6 g/dL Normal 12.0-16.0 [facility] Comment on above: Performed By: #### 2 3012165, 0532859, 79584447, 8216660, 4322608 #### [facility] [address] [place] [address] MCH (RBC) [Entitic mass] 27.6 pg Normal 27.0-34.0 [facility] Comment on above: Performed By: #### 2 2426412, 8747917, 90369205, 7077862, 5431068 #### [facility] [address] [place] [address] MCHC (RBC) [Mass/Vol] 33.8 g/dL Normal 31.4-36.0 [facility] Comment on above: Performed By: #### 2 1903782, 4938406, 29895529, 8598843, 0912166 #### [facility] [address] [place] [address] MCV (RBC) [Entitic vol] 81.7 fL Normal 80.0-100.0 [facility] Comment on above: Performed By: #### 2 0870318, 6463877, 70090044, 7804121, 9229923 #### [facility] [address] [place] [address] Platelet mean volume (Bld) [Entitic vol] 7.2 fL Normal 6.4-10.8 [facility] Comment on above: Performed By: #### 2 0515791, 7506805, 46263759, 1926332, 2033289 #### [facility] [address] [place] [address]142 Platelets (Bld) [#/Vol] 413.0 E9/L Normal 150.0-500.0 [facility] Comment on above: Performed By: #### 2 5068479, 8407532, 73465388, 2102592, 9352613 #### [facility] [address] [place] [address] RBC (Bld) [#/Vol] 4.9 E12/L Normal 4.3-5.9 [facility] Comment on above: Performed By: #### 2 4080150, 2844193, 11567277, 1940554, 7328531 #### [facility] [address] [place] [address] WBC corrected for nucl RBC Auto (Bld) [#/Vol] 12.7 E9/L High 4.0-11.[address] [facility] Comment on above: Performed By: #### 2 [id number] #### [facility] [address] [place] [address] CHEMISTRYOrdered By: SYSTEM SYSTEM on 06-13-2022 Anion gap [Moles/Vol] 14 mmol/L Normal 6 - 16 mEq/L F C Remisol Calcium [Mass/Vol] 9.0 mg/dL Normal 8.9 - 11. 1 mg/dL FT Remisol Chloride [Moles/Vol] 103 mmol/L Normal 101 - 1 11 mmol/L FT Remisol CO2 [Moles/Vol] 22 mmol/L Normal 21 - 31 mmol/L FT Remisol Creatinine [Mass/Vol] 0.8 mg/dL Normal 0.5 - 1.3 mg/dL FT Remisol GFR/1.73 sq M.predicted among blacks MDRD (S/P/Bld) [Vol rate/Area] mL/min/1.73 m2 Normal >=59mL/min/1 .73 m2 [facility] [place] S GFR/1.73 sq M.predicted among non-blacks MDRD (S/P/Bld) [Vol rate/Area] mL/min/1.73 m2 Normal >=59mL/min/1 .73 m2 [facility] S Glucose [Mass/Vol] 90 mg/dL Normal 55 - 199 mg/dL FT Remisol Potassium [Moles/Vol] 4.2 mmol/L Normal 3.5 - 5.3 mmol/L FT [facility] Sodium [Moles/Vol] 135 mmol/L Normal 135 - 145 mmol/L FT [facility]isol Urea nitrogen [Mass/Vol] 21 mg/dL Normal 5 - 21 mg/dL FT Remisol Urea nitrogen/Creatinine [Mass ratio] 26 mg/mg High 10 - [address] [facility] [address] Abdomen/Pelvis w/ Contras ton 06-13-2022 CT Abdomen/Pelvis w/ Contrast Exam Date/Time: 06/13/2022 09:43 EST Reason for Exam: Abdominal pain, acute, nonlocalized;Other (please specify) Report IMPRESSION: POSTSURGICAL CHANGES. NONOBSTRUCTING RIGHT RENAL CALCULUS. NO EVIDENCE OF ACUTE ABDOMINAL OR PELVIC PATHOLOGY. CLINICAL HISTORY: Abdominal pain, acute, nonlocalized. History of cholecystectomy, appendectomy, left ovarian surgery. COMMENT: Images were obtained following the administration of Intravenous contrast. Inferior portions of the lung bases that are included within the field of view are aerated and clear. There are surgical clips at the gallbladder fossa, from prior cholecystectomy. Extrahepatic bile ducts are within normal limits in diameter postcholecystectom y. The liver, spleen, pancreas, and adrenal glands are unremarkable. There is a 0.6 cm nonobstructing calculus in the major infundibulum of the mid and lower right kidney. No other renal calculus is noted. Both kidneys are otherwise normal in appearance. No calculus is noted in either ureter. The renal collecting systems are not dilated. There are small nonspecific retroperitoneal and mesenteric lymph nodes. No retroperitoneal lymphadenopathy is evident. The abdominal aorta is normal. No aneurysm is noted. Evaluation of bowel is limited. The bowel loops are not dilated, and there is no evidence of bowel obstruction. Fecal material in the colon limits evaluation. There are some scattered colonic diverticula. There is no evidence of diverticulitis. No abdominal inflammatory complex nor free air nor free fluid is noted. There is an umbilical hernia, containing fat. The uterus is anteverted. There are right ovarian cysts, and the largest measures approximately 1.5 cm in diameter. No pelvic lymphadenopathy is evident. There is spondylosis, with mild hypertrophic spurring of lumbar and lower thoracic vertebral bodies. All CT scans at this facility use dose modulation, iterative reconstruction, and/or weight based dosing when appropriate to reduce radiation dose to as low as reasonably achievable. Report Ordering Provider: Sebastien Owens FINAL REPORT Dictated: 06/13/2022 10:04 am Efrain Razo M.D. Signed (Electronic Signature): 06/13/2022 10:04 am Signed by: Efrain Razo M.D. Transcribed by: CORINNE Technologist: RRAna Laura Technical Comments GFR (mL/min/1/73m2) na Contrast: Isovue 300 Contrast amount in ml's: 100 Rectal Contrast Given? No Normal [facility] Consent for Treatmenton Consent for Treatment [id number]:127 Normal [facility] Discharge Instructionson Discharge Instructions [id number]:127 Normal [facility] ED Clinical Summaryon 2022 ED Clinical Summary [place] [id number] ED Clinical Summary Person Information Name: YI PALOMINO Bertha/[facility] Age: 37 Years : 1985 Sex: Female Language: Latvian PCP: NONE, XXXX Marital Status: Phone: [phone] Visit Id: Visit Reason: Lower leg pain-swelling; Leg pain-swelling; LEFT HIP PAIN Speciality: Acuity: 3 Enc Type: Emergency Med Service: Emergency Arrival: 06/13/2022 08:14:01 Discharge: 06/13/2022 11:03:07 LOS: 000 02:49 Checkin: 06/13/2022 08:14:01 Checkout: 06/13/2022 11:03:07 Dispo Type: Home (Routine DC) EVENTS: Event Name Event Status Request Date/Time Start Date/Time Complete Date/Time Arrive Complete 06/13/2022 08:14:01 06/13/2022 08:14:01 06/13/2022 08:14:01 Document Home Meds Request 06/13/2022 08:14:01 Triage Complete 06/13/2022 08:14:01 06/13/2022 08:22:51 06/13/2022 08:22:51 Bed Assign Complete 06/13/2022 08:17:15 06/13/2022 08:17:15 06/13/2022 08:17:15 Dr Exam Complete 06/13/2022 08:17:15 06/13/2022 08:19:13 06/13/2022 08:19:13 RN Exam Complete 06/13/2022 08:17:15 06/13/2022 08:27:37 06/13/2022 08:27:37 Registration Complete 06/13/2022 08:19:13 06/13/2022 08:29:27 06/13/2022 08:29:27 Dr Exam Complete 06/13/2022 08:19:59 06/13/2022 08:19:59 06/13/2022 08:19:59 Meds Admin Complete 06/13/2022 08:26:25 06/13/2022 09:05:27 Pending Labs Complete 06/13/2022 08:28:25 06/13/2022 10:59:45 Lab Complete 06/13/2022 08:28:25 06/13/2022 10:59:45 Urine Collect Complete 06/13/2022 08:28:25 06/13/2022 10:59:45 CT Complete 06/13/2022 08:28:25 06/13/2022 09:09:12 06/13/2022 09:43:49 Reg Complete Request 06/13/2022 08:29:27 Reg Bed Request Complete 06/13/2022 08:29:27 06/13/2022 08:29:27 06/13/2022 08:29:27 Pending Labs Complete 06/13/2022 08:41:00 06/13/2022 08:41:00 06/13/2022 09:08:23 Lab Complete 06/13/2022 08:41:00 06/13/2022 08:41:00 06/13/2022 09:08:23 Pending Labs Complete 06/13/2022 08:50:01 06/13/2022 08:50:01 06/13/2022 08:50:09 Lab Complete 06/13/2022 08:50:01 06/13/2022 08:50:01 06/13/2022 08:50:09 Pending Labs Complete 06/13/2022 09:10:01 06/13/2022 09:10:01 06/13/2022 09:10:01 Discharge Complete 06/13/2022 10:46:58 06/13/2022 11:03:12 06/13/2022 11:03:12 Pending Labs Collected 06/13/2022 10:51:50 06/13/2022 10:51:50 Lab Collected 06/13/2022 10:51:50 06/13/2022 10:51:50 Transfer Complete 06/13/2022 11:03:12 06/13/2022 11:03:12 06/13/2022 11:03:12 Discharge Request 06/13/2022 11:03:21 ADDRESS: [facility] [place] [address] [address] [facility] [id number] PHYS DOC NOTES: MEDICAL INFORMATION: Prescriptions Given: New Medications [facility], [address] [place], [place] [id number], [phone] acetaminophen-oxyc odone (acetaminophen-oxy codone 325 mg-5 mg Tab) 1 Tablets By Mouth every 4 hours as needed for pain. Refills: 0. cephalexin (cephalexin 500 mg Cap) 1 Capsules By Mouth every 12 hours for 7 Days. Refills: 0. PATIENT EDUCATION INFORMATION: Instructions: Sciatica, Vfgx-gb-Wepa Follow up: With: Address: When: [facility] Physical Therapy Department In 3 days 06/16/2022 With: Address: When: [place] NONE , [place] In 3 days DIAGNOSIS: Sciatic pain; Urinary tract infection Normal [facility] ED Note-Physicianon 06-14-19 ED Note-Physician Basic Information Time Seen: Ray Sharif PA-C 06/13/2022 08:19 Chief Complaint pain in the left hip that radiates down the left leg that started 1 week ago History of Present Illness Patient is a 37-year-old female presents the ED with complaint of left hip pain which radiates down her left leg. Patient reports that the pain has been ongoing for about a week. Patient was recently seen at another institution for this pain at which time she was given orphenadrine, Toradol, lidocaine patch and had x-ray performed. Patient was diagnosed with a sciatic pain that time. Patient reports pain has been intractable since being seen. Patient does report a history of chronic low back pain including a epidural which was performed 3 years ago. Patient reports that her pain was on the right at that time. Patient denies any recent injuries. Patient denies any fevers or chills. Patient denies any history of IV drug use. Patient denies any saddle anesthesia, loss of bowel or bladder function. Review of Systems Full 10 system ROS performed. Pt denies symptoms except as noted above in the HPI. Physical Exam Vitals & Measurements T: 36.9 ?C(Oral) HR: 78(Peripheral) RR: 18 BP: 117/57 SpO2: 100% HT: 154 cm WT: 115 kg BMI: 48.49 VITALS: I have reviewed the triage vital signs. GENERAL: Patient is anxious, hyperventilating, tearful NEURO: Alert and oriented. Moves all extremities. Face is symmetric and expressive. EYES: PERRL. No scleral icterus or conjunctival injection. No discharge. HENT: Normocephalic, atraumatic. Hearing is grossly intact. Nares grossly patent and without discharge. Mucous membranes moist. NECK: No JVD. Patient moves neck without restriction. CARDIO: Rhythm regular. Normal rate. No murmur, rub, or gallop. Pulses equal bilaterally in the upper and lower extremity. No lower extremity edema. PULM: Lungs clear to auscultation in all lua. No wheezes, rales, or rhonchi. No conversational dyspnea. No splinting, stridor, or accessory muscle use. GI/: Abdomen is soft and non-tender. Normoactive bowel sounds. EXTREMITIES: Symmetric muscle bulk. No joint swelling. No clubbing, cyanosis, or deformity. SKIN: Warm and dry. Normal turgor. No rash or lesions appreciated. PSYCH: Mood is labile alternately tearful laughing Medical Decision Making MEDICAL DECISION MAKING Number and Complexity of Problems Differential Diagnosis: [] [facility] Data External documents reviewed: [] My EKG interpretation: [] My CT interpretation: [] My X-ray interpretation: [] My Ultrasound interpretation: [] Decision rules/scores evaluated: [] Discussed with: [] Treatment and Disposition ED Course: Patient presents the ED with acute back pain. Due to extremity pain, repeat visit to ED over the last week for this complaint, CT scan was ordered with negative findings. Work-up in ED reviewed and noted. Patient has no saddle anesthesia, loss of bowel or bladder function or other alarm symptoms of cauda equina or mass-effect on spinal cord. Patient without history of vascular disease or alarming aspects of history (such as associated abdominal pain, or syncope) to raise red flags for AAA. patient with no alarm aspects of history (no IV drug use, no history indicating immunocompromised) or signs/symptoms (fever or other symptoms of infectious illness) of systemic infectious process indicating possible infectious lesion affecting spine. Patient without history or physical exam findings concerning for possible fracture. Patient without history or physical exam findings concerning for possible cancerous process. Patient given appropriate analgesia in the ED as well as prescription and instructions on appropriate analgesia at home. Patient instructed on return precautions to the ED including any alarm symptoms of cauda equina or spinal stenosis, infectious process, malignancy, fracture, or any other alarming signs or symptoms. Patient instructed to resume normal activity as tolerated as soon as possible. Patient to follow-up with primary care for ongoing management of chronic pain if necessary. Patient discharged home. Patient UA resulted shortly before discharge, patient noted to have nitrite positive UTI. Patient prescribed antibiotic, called and instructed that she had a nitrite positive UTI and that she would have prescription for antibiotic alongside her pain medication. Shared decision making: [] Code status: [] Assessment/Plan Sciatic pain (M54.30: Sciatica, unspecified side) Urinary tract infection (N39.0: Urinary tract infection, site not specified) Orders: acetaminophen-oxyc odone, 1 tab(s), Oral, q4hr for pain, 12 tab(s), Refill(s) 0, [facility], 154, cm, 06/13/22 8:29:00 EST, Height/Length Dosing, 115, kg, 06/13/22 8:29:00 EST, Weight Dosing cephalexin, 500 mg = 1 cap(s), Oral, q12hr, X 7 day(s), # 14 cap(s), Refills(s) 0, Pharmacy: [facility], 154, cm, 06/13/22 8:29:00 EST, Height/Length Dos (more content not included)... Normal [facility] Comment on above: Result Comment: Elec tronically Signed By: Kole PACHECO, Ray Hayden\.br\Date and Time Signed: 06/13/22 11:13 EST\.br\Electronically Co-Signed By: Sebastien Owens DO\.br\Date and Time Co-Signed: 06/13/22 19:31 EST ED Patient Education Noteon 06-13-2022 ED Patient Education Note Orthopedics Sciatica Sciatica is pain, weakness, tingling, or loss of feeling (numbness) along the sciatic nerve. The sciatic nerve starts in the lower back and goes down the back of each leg. Sciatica usually goes away on its own or with treatment. Sometimes, sciatica may come back (recur). What are the causes? This condition happens when the sciatic nerve is pinched or has pressure put on it. This may be the result of: ? A disk in between the bones of the spine bulging out too far (herniated disk). ? Changes in the spinal disks that occur with aging. ? A condition that affects a muscle in the butt. ? Extra bone growth near the sciatic nerve. ? A break (fracture) of the area between your hip bones (pelvis). ? . ? Tumor. This is rare. What increases the risk? You are more likely to develop this condition if you: ? Play sports that put pressure or stress on the spine. ? Have poor strength and ease of movement (flexibility). ? Have had a back injury in the past. ? Have had back surgery. ? Sit for long periods of time. ? Do activities that involve bending or lifting over and over again. ? Are very overweight (obese). What are the signs or symptoms? Symptoms can vary from mild to very bad. They may include: ? Any of these problems in the lower back, leg, hip, or butt: ? Mild tingling, loss of feeling, or dull aches. ? Burning sensations. ? Sharp pains. ? Loss of feeling in the back of the calf or the sole of the foot. ? Leg weakness. ? Very bad back pain that makes it hard to move. These symptoms may get worse when you cough, sneeze, or laugh. They may also get worse when you sit or stand for long periods of time. How is this treated? This condition often gets better without any treatment. However, treatment may include: ? Changing or cutting back on physical activity when you have pain. ? Doing exercises and stretching. ? Putting ice or heat on the affected area. ? Medicines that help: ? To relieve pain and swelling. ? To relax your muscles. ? Shots (injections) of medicines that help to relieve pain, irritation, and swelling. ? Surgery. Follow these instructions at home: Medicines ? Take ehnq-rhd-kvgrwyq and prescription medicines only as told by your doctor. ? Ask your doctor if the medicine prescribed to you: ? Requires you to avoid driving or using heavy machinery. ? Can cause trouble pooping (constipation). You may need to take these steps to prevent or treat trouble pooping: ? Drink enough fluids to keep your pee (urine) pale yellow. ? Take dzkj-hgs-hyhirda or prescription medicines. ? Eat foods that are high in fiber. These include beans, whole grains, and fresh fruits and vegetables. ? Limit foods that are high in fat and sugar. These include fried or sweet foods. Managing pain ? If told, put ice on the affected area. ? Put ice in a plastic bag. ? Place a towel between your skin and the bag. ? Leave the ice on for 20 minutes, 2?3 times a day. ? If told, put heat on the affected area. Use the heat source that your doctor tells you to use, such as a moist heat pack or a heating pad. ? Place a towel between your skin and the heat source. ? Leave the heat on for 20?30 minutes. ? Remove the heat if your skin turns bright red. This is very important if you are unable to feel pain, heat, or cold. You may have a greater risk of getting burned. Activity ? Return to your normal activities as told by your doctor. Ask your doctor what activities are safe for you. ? Avoid activities that make your symptoms worse. ? Take short rests during the day. ? When you rest for a long time, do some physical activity or stretching between periods of rest. ? Avoid sitting for a long time without moving. Get up and move around at least one time each hour. ? Exercise and stretch regularly, as told by your doctor. ? Do not lift anything that is heavier than 10 lb (4.5 kg) while you have symptoms of sciatica. ? Avoid lifting heavy things even when you do not have symptoms. ? Avoid lifting heavy things over and over. ? When you lift objects, always lift in a way that is safe for your body. To do this, you should: ? Bend your knees. ? Keep the object close to your body. ? Avoid twisting. General instructions ? Stay at a healthy weight. ? Wear comfortable shoes that support your feet. Avoid wearing high heels. ? Avoid sleeping on a mattress that is too soft or too hard. You might have less pain if you sleep on a mattress that is firm enough to support your back. ? Keep all follow-up visits as told by your doctor. This is important. Contact a doctor if: ? You have pain that: ? Wakes you up when you are sleeping. ? Gets worse when you lie down. ? Is worse than the pain you have had in the past. ? Lasts longer than (more content not included)... Normal [facility] ED Patient Summaryon 023 ED Patient Summary [place] [id number] Patient Discharge Instructions Person Information Name: YI PALOMINO Age: 37 Years Arrival Date: 06/13/2022 08:14:01 Discharge Diagnosis: Sciatic pain; Urinary tract infection Primary Care Physician: NONE, [place] Provider Information Primary Provider: Sebastien Owens DO Advanced Cooperer:Ray Sharif PA-C The exam and treatment you received in the Emergency Department were for an urgent problem and are not intended as complete care. It is important that you follow up with a doctor, nurse practitioner, or physician?s legislative assistant for ongoing care. If your symptoms become worse or you do not improve as expected and you are unable to reach your usual health care provider, you should return to the Emergency Department. We are available 24 hours a day. YI PALOMINO has been given the following list of patient education materials, prescriptions and follow-up instructions: Follow-up Instructions: With: Address: When: [facility] Physical Therapy Department In 3 days 06/16/2022 With: Address: When: [place] NONE , [place] In 3 days In the event that this physician does not participate in your insurance network, please consult with your insurance company to find a nearby participating provider. Patient Education Materials: Sciatica, Kdqu-tx-Wfnr A MESSAGE TO ALL PATIENTS REGARDING OPIOIDS PRESCRIPTION OPIOIDS: WHAT YOU NEED TO KNOW Prescription opioids can be used to help relieve skeexrrb-cv-hdjizf pain and are often prescribed following a surgery or injury, or for certain health conditions. These medications can be an important part of the treatment but also come with serious risks. It is important to work with your healthcare provider to make sure you are getting the safest, most effective care. WHAT ARE THE RISKS AND SIDE EFFECTS OF OPIOID USE? Prescription opioids carry serious risks of addiction and overdose, especially with prolonged use. An opioid overdose, often marked by slowed breathing, can cause sudden . The use of prescription opioids can have a number of side effects as well, even when taken as directed: ? Tolerance?meaning you might need to take more of the medication for the same pain relief ? Physical dependence?meaning you have symptoms of withdrawal when a medication is stopped ? Increased sensitivity to pain ? Constipation ? Nausea, vomiting, and dry mouth ? Sleepiness and dizziness ? Confusion ? Depression ? Low levels of testosterone that can result in lower sex drive, energy, and strength ? Itching and sweating RISKS ARE GREATER WITH: ? History of drug misuse, substance use disorder, or overdose ? Mental health conditions (such as depression or anxiety) ? Sleep apnea ? Older age (65 years and older) ? Avoid alcohol while taking prescription opioids. Also, unless specifically advised by your health care provider, medications to avoid include: ? Benzodiazepines (such as Xanax or Valium) ? Muscle relaxants (such as Soma or Flexeril) ? Hypnotics (such as Ambien or Lunesta) ? Other prescription opioids KNOW YOUR OPTIONS Talk to your health care provider about ways to manage your pain that don?t involve prescription opioids. Some of these options may actually work better and have fewer risks and side effects. Options may include: ? Pain relievers such as acetaminophen, ibuprofen, and naproxen ? Some medication that are also used for depression or seizures ? Physical therapy and exercise ? Cognitive behavioral therapy, a psychological, goal-directed approach, in which patients learn how to modify physical, behavioral, and emotional triggers of pain and stress. IF YOU ARE PRESCRIBED OPIOIDS FOR PAIN: ? Never take opioids in greater amounts or more often than prescribed. ? Follow up with your primary health care provider. o Work together to create a plan on how to manage your pain. o Talk about ways to help manage your pain that don?t involve prescription opioids. o Talk about any and all concerns and side effects. ? Help prevent misuse and abuse o Never sell or share prescription opioids. o Never use another person?s prescription opioids. ? Store prescription opioids in a secure place and out of reach of others (this may include visitors, children, friends, and family). ? Safely dispose of unused prescription opioids: Find your community drug take-back program or your pharmacy mail-back program, or flush them down the toilet, following guidance from the Food and Drug Administration (www.fda.gov/Drugs /ResourcesForYou). ? Visit www.cdc.gov/drugov erdose to learn about the risks of opioids abuse and overdose. ? If you believe you may be struggling with addiction, tell your health early breastfeeding care specialist and ask for guidance or call [facility]?S National Helpline at 5-929-625-BAHK. (more content not included)... Normal [facility] HEMATOLOGYOrdered By: SYSTEM SYSTEM on 06-13-2022 Basophils/100 WBC (Bld) 1.0 % Normal 0.0 - 2.0 % [facility] HemeAutoSS Basophils/Leukocytes Auto (Bld) [Pure # fraction] 0.1 E9/L Normal 0.0 - 0.2 E9/L [facility] HemeAutoSS Eosinophils/100 WBC (Bld) 1.5 % Normal 0.0 - 8.0 % [facility] HemeAutoSS Eosinophils/Leukocytes Auto (Bld) [Pure # fraction] 0.2 E9/L Normal 0.0 - 0.5 E9/L [facility] Lymphocytes/100 WBC (Bld) 19.9 % Normal 14.0 - 50.0 % [facility] HemeAutoSS Lymphocytes/Leukocytes Auto (Bld) [Pure # fraction] 2.5 E9/L Normal 1.0 - 4.0 E9/L [facility]eAutoSS Monocytes/100 WBC (Bld) 5.6 % Normal 4.0 - 14.0 % [facility] HemeAutoSS Monocytes/Leukocytes Auto (Bld) [Pure # fraction] 0.7 E9/L Normal 0.2 - 1.0 E9/L [facility]SS Neutrophils/100 WBC (Bld) 72.0 % Normal 36.0 - 75.0 % [facility] HemeAutoSS Neutrophils/Leukocytes Auto (Bld) [Pure # fraction] 9.2 E9/L High 2.0 - 7.5 E9/L [facility] Heme[facility]SS HEMATOLOGYOrdered By: Adria Hernandez on 06-13-2022 Erythrocyte distribution width (RBC) [Ratio] 14.9 % High 10.9 - 14.2 % [facility] Hematocrit (Bld) [Volume fraction] 40.2 % Normal 34.0 - 46.0 % [facility]SS Hemoglobin (Bld) [Mass/Vol] 13.6 g/dL Normal 12.0 - 16.0 gm/dL [facility] MCH (RBC) [Entitic mass] 27.6 pg Normal 27.0 - 34.0 pg [facility] MCHC (RBC) [Mass/Vol] 33.8 g/dL Normal 31.4 - 36.0 gm/dL [facility] MCV (RBC) [Entitic vol] 81.7 fL Normal 80.0 - 100.0 fL [facility] Platelet mean volume (Bld) [Entitic vol] 7.2 fL Normal 6.4 - 10.8 fL [facility] Platelets (Bld) [#/Vol] 413.0 E9/L Normal 150. 0 - 500.0 E9/L [facility] RBC (Bld) [#/Vol] 4.9 E12/L Normal 4.3 - 5.9 E12/L [facility] WBC corrected for nucl RBC Auto (Bld) [#/Vol] 12.7 E9/L High 4.0 - 11.0 E9/L [facility] SEROLOGYOrdered By: Jocelyn carrillo on 06-13-2022 Beta hCG Ql Negative (06/13/22 8:37 AM) Normal [facility] Man Sero UA With Cult Reflexon 2022 Bacteria LM Ql (Urine sed) 3+ /HPF Abnormal Trace [facility] Comment on above: Performed By: #### 1 [id number], [id number] #### [facility] [address] [place] [address] Bilirubin Ql (U) Negative Normal Negative [facility] Comment on above: Performed By: #### 1 [id number], [id number] #### [facility] [address] [place] [address] Clarity (U) SL CLOUDY Invalid Interpretation Code [facility] Comment on above: Performed By: #### 1 [id number] #### [facility] [address] [place] [address] Color (U) YELLOW Normal Yellow [facility] Comment on above: Performed By: #### 1 [id number], [id number] #### [facility] [address] [place] [address] Epithelial cells.squamous LM.HPF (Urine sed) [#/Area] 3-4 Normal 0-2 [facility] Comment on above: Performed By: #### 1 [id number], [id number] #### [facility] [address] [place], [place] [id number] Glucose Test strip (U) [Mass/Vol] Negative Normal Negative [facility] Comment on above: Performed By: #### 1 [id number], [id number] #### [facility] [address] [place] [address] Hemoglobin Ql (U) 1+ Abnormal Negative [facility] Comment on above: Performed By: #### 1 [id number], [id number] #### [facility] [address] [place] [address] Ketones (U) [Mass/Vol] Negative Normal Negative [facility] Comment on above: Performed By: #### 1 [id number], [id number] #### [facility] [address] [place] [address] [place].plasma/[place]. RBC (Bld) [Mass ratio] 4-20 Normal 0-[address] [facility] Comment on above: Performed By: #### 1 [id number], [id number] #### [facility] [address] [place] [address] Nitrite Ql (U) Positive Abnormal Negative [facility] Comment on above: Performed By: #### 1 [id number], [id number] #### [facility] [address] [place] [address] pH (U) 7.5 [pH] Invalid Interpretation Code 5.0-9.0 [facility] Comment on above: Performed By: #### 1 [id number], [id number] #### [facility] [address] [place] [id number] Protein (U) [Mass/Vol] TRACE Abnormal Negative [facility] Comment on above: Performed By: #### 1 [id number], [id number] #### [facility] [address] [place] [address] Specific gravity (U) [Rel density] 1.010 Invalid Interpretation Code 1.005-1.030 [facility] Comment on above: Performed By: #### 1 [id number], [id number] #### [facility] [address] [place] [address] Type of Urine collection method Clean Catch Normal [facility] Comment on above: Performed By: #### 1 [id number], [id number] #### [facility] [address] [place] [address] Urobilinogen Qn (U) 0.2 {Donna'U}/dL Normal 0.0-1.0 [facility] Comment on above: Performed By: #### 1 [id number], [id number] #### [facility] [address] [place] [address] WBC Auto Ql (U) 1+ Abnormal Negative [facility] Comment on above: Performed By: #### 1 [id number], [id number] #### [facility] [address] [place], [place] [id number] WBC LM.HPF (Urine sed) [#/Area] /[HPF] Abnormal 0-5 [facility] Comment on above: Performed By: #### 1 [id number], [id number] #### [facility] [address] [place] [address] URINALYSISOrdered By: Jocelyn Bazzi on 06-13-2022 Bacteria LM Ql (Urine sed) 3+ /HPF Invalid Interpretation Code Trace/HPF [facility] UA Auto SS Bilirubin Ql (U) Negative (06/13/22 10:37 AM) Normal Negative [facility] UA Auto SS Clarity (U) SL CLOUDY Invalid Interpretation Code [facility] UA Auto SS Color (U) Yellow (06/13/22 10:37 AM) Normal Yellow [facility] UA Auto SS Epithelial cells.squamous LM.HPF (Urine sed) [#/Area] 3-4 /HPF Normal 0-2/HPF [facility] UA Aut o SS Glucose Test strip (U) [Mass/Vol] Negative (06/13/22 10:37 AM) Normal Negative [facility] UA Auto SS Hemoglobin Ql (U) 1+ *ABN* (06/13/22 10:37 AM) Invalid Interpretation Code Negative [facility] UA Auto SS Ketones (U) [Mass/Vol] Negative (06/13/22 10:37 AM) Normal Negative [facility] UA Auto SS [place].plasma/[place]. RBC (Bld) [Mass ratio] 4-20 /HPF Normal 0-3/HPF [facility] UA A uto SS Nitrite Ql (U) Positive *ABN* (06/13/22 10:37 AM) Invalid Interpretation Code Negative [facility] UA Auto SS pH (U) 7.5 *NA* (06/13/22 10:37 AM) Invalid Interpretation Code 5.0 - 9.0 [facility] UA Auto SS Protein (U) [Mass/Vol] Trace *ABN* (06/13/22 10:37 AM) Invalid Interpretation Code Negative [facility] UA Auto SS Specific gravity (U) [Rel density] 1.010 *NA* (06/13/22 10:37 AM) Invalid Interpretation Code 1.005 - 1.030 [facility] UA Auto SS UA Spec Desc Clean Catch (06/13/22 10:37 AM) Normal [facility] UA Auto SS Urobilinogen Qn (U) [id number] {Donna'U}/dL Normal 0.0 - 1.0 EU/dL [facility] UA Auto SS WBC Auto Ql (U) 1+ *ABN* (06/13/22 10:37 AM) Invalid Interpretation Code Negative [facility] UA Auto SS WBC LM.HPF (Urine sed) [#/Area] /[HPF] Invalid Interpretation Code 0-5/HPF [facility] UA Auto SS eGFRon 06-13-2022 GFR/1.73 sq M.predicted among blacks MDRD (S/P/Bld) [Vol rate/Area] mL/min/{1.73_m2} Normal >=59 [facility] Comment on above: Order Comment: Order added by Discern Expert. Result Comment: eGFR is race adjusted. AA=. Performed By: #### 2 [id number] #### [facility] [address] [place] [address] GFR/1.73 sq M.predicted among non-blacks MDRD (S/P/Bld) [Vol rate/Area] mL/min/{1.73_m2} Normal >=59 [facility] Comment on above: Order Comment: Order added by Discern Expert. Result Comment: Travel Pt frantz kidney disease could be indicated at eGFR's of less than 60 mL/min/1.73m2. Kidney failure is indicated at less than 15 mL/min/1.73m2. Performed By: #### 2 [id number] #### [facility] [address] [place] [address] XR Spine Lumbar Complete w/F vi AND [place] 06-08-2022 XR Spine Lumbar Complete w/Flex AND Ext COMPARISON: NONE FINDINGS: There is no acute fracture or subluxation. There is no loss of vertebral body height. There is straightening of the lordotic curvature of the lumbar spine which may be secondary to positioning versus muscle spasm. There is no significant change in alignment between flexion or extension.. There is no intervertebral disc space narrowing from L1 to L5 with moderate disc space narrowing at L5-S1. The SI joints are symmetric. The soft tissues are within normal limits. IMPRESSION: There is mild spondylosis. Report reported and signed by SAPPHIRE VILLANUEVA on 06/09/2022 1321 Normal [facility] Scoop Filler COVID Quick Testingon 2020 Result Negative [facility] Other Vital Signs Date Time Vital Sign Value Performing Clinician Facility 08-08-2022 11:00-0400 Body height 154.94 cm Nery Blades Other [facility] Other 08-08-2022 11:00-0400 Body mass index (BMI) [Ratio] 47.42 kg/m2 Nery Blades Other [facility] Other 08-08-2022 11:00-0400 Body weight 113.85 kg Nery Blades Other [facility] Other 08-08-2022 11:00-0400 Diastolic blood pressure 78 mm[Hg] Nery Blades Other [facility] Other 08-08-2022 11:00-0400 Systolic blood pressure 120 mm[Hg] Nery Blades Other [facility] Other 07-11-2022 11:30-0400 Body height 154.94 cm Nery Blades Other [facility] Other 07-11-2022 11:30-0400 Body mass index (BMI) [Ratio] 47.8 kg/m2 Nery Blades Other [facility] Other 07-11-2022 11:30-0400 Body weight 114.76 kg Nery Blades Other [facility] Other 07-11-2022 11:30-0400 Diastolic blood pressure 80 mm[Hg] Nery Blades Other [facility] Other 07-11-2022 11:30-0400 Systolic blood pressure 130 mm[Hg] Nery Blades Other [facility] Other 07-04-2022 11:53-0400 Body temperature 97.9 [degF] MD Etta Mario Work Phone: [facility] 07-04-2022 11:53-0400 Diastolic blood pressure 69 mm[Hg] MD Etta Mario Work Phone: [facility] 07-04-2022 11:53-0400 Heart rate 75 /min MD Etta Mario Work Phone: [facility] 07-04-2022 11:53-0400 Respiratory rate 16 /min MD Etta Mario Work Phone: [facility] 07-04-2022 11:53-0400 SaO2% (BldA) [Mass fraction] 95 % MD Etta Mario Work Phone: [facility] 07-04-2022 11:53-0400 Systolic blood pressure 111 mm[Hg] MD Etta Mario Work Phone: [facility] 07-04-2022 06:00-0400 Body weight 113.8 kg MD Etta Mario Work Phone: [facility] 07-03-2022 19:25-0400 Inhaled oxygen flow rate 10 L/min MD Etta Mario Work Phone: [facility] 07-03-2022 16:00-0400 Body height 154.94 cm MD Etta Mario Work Phone: [facility] 07-03-2022 16:00-0400 Body mass index (BMI) [Ratio] 48.2 kg/m2 MD Etta Mario Work Phone: [facility] 06-29-2022 12:30-0400 Body height 154.94 cm Nery Blades Other [facility] Other 06-29-2022 12:30-0400 Body mass index (BMI) [Ratio] 47.8 kg/m2 Nery Blades Other [facility] Other 06-29-2022 12:30-0400 Body weight 114.76 kg Nery Blades Other [facility] Other 06-13-2022 10:55-0500 Diastolic blood pressure 89 mm[Hg] Sebastien Roman [facility] 06-13-2022 10:55-0500 Heart rate 66 /min Sebastien Roman [facility] 06-13-2022 10:55-0500 Respiratory rate 18 /min Sebastien Roman [facility] 06-13-2022 10:55-0500 SaO2% (BldA) [Mass fraction] 98 % Sebastien Roman [facility] 06-13-2022 10:55-0500 Systolic blood pressure 136 mm[Hg] Sebastien Roman [facility] 06-13-2022 10:19-0500 Diastolic blood pressure 76 mm[Hg] Sebastien Roman [facility] 06-13-2022 10:19-0500 Heart rate 67 /min Sebastien Roman [facility] 06-13-2022 10:19-0500 Mean blood pressure 95 mm[Hg] Sebastien Roman [facility] 06-13-2022 10:19-0500 Respiratory rate 20 /min Sebastien Roman [facility] 06-13-2022 10:19-0500 SaO2% (BldA) [Mass fraction] 100 % Sebastien Roman [facility] 06-13-2022 10:19-0500 Systolic blood pressure 132 mm[Hg] Sebastien Roman [facility] 06-13-2022 08:18-0500 Body temperature 98.42 [degF] Sebastien Owens [facility] 06-13-2022 08:18-0500 Diastolic blood pressure 57 mm[Hg] Sebastien Owens [facility] 06-13-2022 08:18-0500 Heart rate 78 /min Sebastien Owens [facility] 06-13-2022 08:18-0500 Respiratory rate 18 /min Sebastien Owens [facility] 06-13-2022 08:18-0500 SaO2% (BldA) [Mass fraction] 100 % Sebastien Owens [facility] 06-13-2022 08:18-0500 Systolic blood pressure 117 mm[Hg] Sebastien Owens [facility] 01-12-2021 15:45-0400 Body height 154.94 cm Nalini Ginty Other [facility] Other 01-12-2021 15:45-0400 Body temperature 97.9 [degF] Nalini Ginty Other [facility] Other 01-12-2021 15:45-0400 SaO2% (BldA) [Mass fraction] 98 % Nalini Ginty Other [facility] Other Encounters Encounter Date Encounter Type Care Provider Facility Start: 05-25-2024 End: 05-25-2024 Telephone encounter Yi Irving NP Work Phone: [facility] Start: 05-23-2024 End: 05-25-2024 Chart abstracting Glo Antoine MD Work Phone: [facility] Start: 07-04-2023 End: 07-04-2023 ambulatory RASHAAD BURCH Not Available Start: 06-01-2023 End: 06-01-2023 ambulatory ROSE GREEN Not Available Start: 03-12-2023 End: 03-12-2023 ambulatory YI IRVING Not Available Start: 08-08-2022 End: 08-08-2022 ambulatory Nery Blades Other [facility] Other Start: 08-08-2022 Postop follow up vis it related to original px Nery Blades [facility] Start: 08-03-2022 End: 08-03-2022 ambulatory Nery Blades Other [facility] Other Start: 08-03-2022 Telephone encounter Nery Blades [facility] Start: 07-30-2022 End: 07-30-2022 ambulatory Nery Blades Other [facility] Other Start: 07-30-2022 Telephone encounter Nery Blades [facility] Neuro[facility] Start: 07-26-2022 End: 07-26-2022 ambulatory Nery Blades Other [facility] Other Start: 07-26-2022 Telephone encounter Nery Blades [facility] Neuro[facility] Start: 07-11-2022 Postop follow up vis it related to original px Nery Blades [facility] Start: 07-11-2022 End: 07-11-2022 ambulatory MD Etta Mario Work Phone: [facility] Work Phone: Start: 07-11-2022 End: 07-11-2022 Patient encounter procedure MD Etta Mario Work Phone: [facility] [place] Work Phone: Start: 07-07-2022 End: 07-07-2022 ambulatory Nery Blades Other [facility] Other Start: 07-07-2022 Telephone encounter Nery Blades [facility] Start: 07-05-2022 End: 07-05-2022 ambulatory Drake Sánchez Other [facility] [employer] Other Start: 07-05-2022 Telephone encounter Drake Sánchez [facility] Start: 07-03-2022 End: 07-04-2022 Evaluation and management of inpatient Etta Mario Facility:[facility] Start: 07-03-2022 Admission to [facility] Nery Blades [facility] Start: 07-03-2022 End: 07-03-2022 ambulatory Nery Blades Other [facility] Other Start: 07-03-2022 Patient encounter procedure Nery Blades [facility] Start: 07-03-2022 End: 07-04-2022 Evaluation and management of inpatient MD Etta Mario Work Phone: [facility] Work Phone: Start: 06-29-2022 End: 06-29-2022 ambulatory Nery Blades Other [employer] Other Start: 06-29-2022 Office outpatient ne w 30 minutes Nery Blades [facility] Start: 06-13-2022 End: 06-13-2022 Emergency department patient visit Sebastien Owens Facility[facility] Start: 06-13-2022 End: 06-13-2022 Emergency department patient visit Sebastien Owens [facility] Start: 06-11-2022 End: 06-11-[address] GLO ANTOINE Facility: Start: 01-12-2021 Office outpatient vi sit 15 minutes Nalini Live [facility] Procedures Date Procedure Procedure Detail Performing Clinician Start: 07-03-2022 X-ray of lumbar spin e, single view MD Etta Mario Work Phone: Start: 07-03-2022 Excision of lumbar intervertebral disc MD Etta Mario Work Phone: Plan of Treatment Date Care Activity Detail Author Start: 03-13-2027 Screening for malignant neoplasm of cervix [facility] Start: 12-15-2023 Influenza vaccination Influenza Vaccine (#1) [facility] Start: 07-04-2022 [facility] Start: 07-03-2022 Hospital admission [facility] Start: 07-03-2022 Excision of Lumbosacral Joint, Open Approach Excision of Lumbosacral Joint, Open Approach [facility] Start: 2007 Screening for malignant neoplasm of cervix Pap Smear [facility] Patient Education Radiculopathy (DC) [facility] Work Phone: Patient referral [facility] Work Phone: Immunizations Immunization Date Immunization Notes Care Provider Fa omar 05-18-2019 tetanus toxoid, redu ernie diphtheria toxoid, and acellular pertussis vaccine, adsorbed Glo Antoine MD Work Phone: [facility] Payers Date Payer Category Payer [facility] [id number] 2023 Unknown [id number] 2022 Self-pay 1985 Unknown [id number] 1986 Unknown [id number] 1986 Unknown [id number] 1986 Unknown [id number] 1986 Unknown [id number] 1958 [facility] [id number] Unknown [id number] Unknown [id number] Unknown [id number] Social History Date Type Detail Facility Unknown if ever smoked [facility] Other Start: 09-26-2022 End: 10-23-2022 Sex Assigned At [facility] Tobacco [facility] Comment on above: denies Tobacco smoking status No Smokin g Status Entered [facility] Start: 07-03-2022 End: 09-25-2022 Tobacco smoking status NHIS Never smoked tobacco (finding) [facility] Start: 1985 Sex Assigned At Female F [facility] Start: 09-25-2022 Tobacco use and exposure Smokeless tobacco non-user [facility] Start: 07-04-2023 Alcoholic beverage intake Ex-drinker (finding) [facility] Start: 09-26-2022 End: 10-23-2022 History of Social function [facility] Within the last year , have you been afraid of your partner or ex-partner? No [facility] How often do you attend buddhism or church services? Patient declined [facility] Are you now , , , , never or living with a partner? [facility] How often to you hav e a drink containing alcohol? Monthly or less [facility] How many standard drinks containing alcohol do you have on a typical day? 1 or 2 [facility] How often do you hav e 6 or more drinks on 1 occasion? Never [facility] Do you feel stress - tense, restless, nervous, or anxious, or unable to sleep at night because your mind is troubled all the time - these days [OSQ] Not at all [facility] (I/We) worried wheth er (my/our) food would run out before (I/we) got money to buy more. Never true [facility] Start: 1985 Sex assigned at Not on file [facility] Goals Date Patient Goal Desired Activity /State Functional Status Date Assessment Result Facility 07-04-2022 Functional status Patient at Baseline [facility] Work Phone: 06-13-2022 Functional Status N/A [facility] Mental Status Date Assessment Result Facility 07-04-2022 Cognitive function Cognitive Sta tus Patient at Baseline [facility] Work Phone: Clinical Notes 01-12-2021 to 05-25-2024 Telephone Encounter - Yi Irving NP - 05/25/2024 1:45 PM ESTTelephone Encounter - Yi Irving NP - 05/25/2024 1:45 PM EST Note Date & Type Note Facility 05-25-2024 Telephone encounter Note Form atting of this note might be different from the original. Will need TCM call completed. Make sure she has urology appointment scheduled. Her imaging from the hospital showed her spleen was enlarged as well and she should be evaluated by hematology, and she has an ovarian cyst which we should repeat US in 3 months to reassess. Let me know if agreeable [facility] 05-25-2024 Miscellaneous Notes Formattin g of this note might be different from the original. Will need TCM call completed. Make sure she has urology appointment scheduled. Her imaging from the hospital showed her spleen was enlarged as well and she should be evaluated by hematology, and she has an ovarian cyst which we should repeat US in 3 months to reassess. Let me know if agreeable documented in this encounter [facility] 08-08-2022 Evaluation note Encounter Date Diagnosis Assessment Notes Jul, Lumbar radiculopathy (ICD-10 - M54.16) [employer] [facility] Other 03-29-2023 Evaluation note* Encounter Date Diagnosis Assessment Notes Treatment Notes Treatment Clinical Notes Jun, Lumbosacral disc herniation (ICD-10 - M51.27) [facility] Other 03-22-2023 Discharge summary Author Nery Rush [facility] July 04, 2022 8:11am Note Date/Time July 04, 2022 8:1 1am [facility] [address] [place] [address] Discharge Summary Signed Patient: Yi Palomino MR#: [id number] : 1985 Acct:[id number] Age/Sex: 37 / F Adm Date: 3 Loc: 4 Room: [address] [place] [address]: Nery Rush MD Copies to: MD Etta Wood MD~ Providers Date of Discharge: 07/04/22 Discharging Provider: Nery Rush Primary Care Provider: Etta Mario Consults: 07/04/22 12:45 Consult to Physical Therapy Routine Discharge Diagnosis (1) Lumbar radiculopathy: Final Diagnosis Final Discharge Diagnosis: Lumbar radiculopathy; intractable leg pain secondary to disc herniation compressing the left S1 nerve root Summary Hospital Course Hospital course: Mrs. Palomino presented to the emergency room yesterday secondary to intractable left leg pain and the inability to bear weight on the leg and foot. She was taken to surgery yesterday to perform a lumbar discectomy left L5-S1. She did well and the left leg pain has resolved. She will be discharged home today. Condition Condition at Discharge: Stable Status at Discharge Functional status at discharge: independent ambulation Overall status at discharge: patient is progressing back to baseline Time Spent with Patient Time spent providing/coordinating discharge services (# min): 30 Surgeries and Procedures Operation Date: 07/03/22 15:20 Actual Procedures p OR L5-S1 Lumbar Discectomy(Left) - Nery Rush MD Complications Complications: None Diagnostic Studies Completed and Pending Studies Pending studies at discharge: 07/05/22 05:00 Basic Metabolic Panel [CHEM] IN AM Complete Blood Count Auto Diff IN AM Labs on day of discharge: 07/04/22 04:43: PHA Creatinine Clear 148.42, Sodium 138, Potassium 4.2, Chloride 107, Carbon Dioxide 21.9, Anion Gap 13.3, BUN 21, Creatinine 0.62, Est GFR (CKD-EPI) > 60.0, Glucose 133 H, Calcium 8.4 L 07/04/22 04:43: Corrected WBC 9.8, Uncorrected WBC Count 9.8, RBC 4.23, Hgb 12.0, Hct 35.3, MCV 83.6, MCH 28.4, MCHC 34.0, RDW 15.2, Plt Count 309, MPV 7.0, Neut % (Auto) 92.1, Lymph % (Auto) 6.3, Woodson % (Auto) 1.4, Eos % (Auto) 0.0, Baso % (Auto) 0.2, Nucleat RBC Rel Count 0.0, Neut # (Auto) 9.0 H, Lymph # (Auto) 0.6 L, Woodson # (Auto) 0.1, Eos # (Auto) 0.0, Baso # (Auto) 0.0 07/03/22 14:14: Urine HCG, Qual Negative Exam Physical Exam Vital Signs: Temp Pulse Resp BP Pulse Ox O2 Del Method O2 Flow Rate 97.7 F 80 16 119/81 97 Room Air 10 07/04/22 07:46 07/04/22 07:46 07/04/22 07:46 07/04/22 07:46 07/04/22 07:46 07/04/22 07:48 07/03/22 19:25 Const General: cooperative, no acute distress, acute distress and anxious Nutritional Appearance: obese and overweight Orientation: alert, awake and oriented x3 HEENT Head: normal to inspection Ears: hearing grossly normal bilaterally Nose: external nose normal Face and sinus: normal facial exam Mouth: oral mucosae normal Eyes General: appearance normal, both eyes and all related structures Periorbital: periorbital findings normal Eyelids: eyelids normal Conjunctivae: conjunctivae normal Sclera: sclerae normal EOM: EOM intact bilaterally Resp Effort & Inspection: normal respiratory effort GI Inspection: obesity Palpation: soft Skin General: no rashes or lesions noted and other (Prineo is intact along the incision site; new dressing applied.) Neuro General: patient alert, patient awake, patient oriented x3, moves all extremities and unable to assess gait (Patient is in a lot of pain and is unable to bear weight on her left leg) Cognition: normal cognition Speech: speech normal Gait: other (Tentative gait but Mrs. Palomino is able to bear weight on her left leg) Motor: strength 5/5 throughout Sensory Exam: other (Paresthesias noted along the left leg) Extrem General: normal to inspection Psych Appearance: grossly normal Mental Status: mental status grossly normal Mood: congruent mood Affect: normal affect and tearful (Due to pain) Speech and Movement: speech and movement normal Attitude: cooperative Thought Process: normal Thought Content: normal Insight: insight good Judgment: judgment good Discharge Plan Discharge Plan Patient Disposition: Home Activity: Ambulate as Tolerated Diet: Regular Comment: Please avoid constipation; use Miralax to assist Instructions: Radiculopathy (DC) Prescriptions: New hydrocodone-acetaminophen 7.5-325 mg tablet 1 tab PO Q6H PRN (Reason: Pain) 14 Days Qty: 56 0RF Rx Instructions: 1 tab orally as needed tizanidine 4 mg capsule 4 mg PO BID PRN (Reason: Muscle Spasm) 14 Days Qty: 28 1RF gabapentin 300 mg capsule 300 mg PO BID 30 Days Qty: 60 1RF No Action cyclobenzaprine 10 mg tablet 10 mg PO TID PRN (Reason: Pain) Patient Comments: TAKE 1 TABLET BY MOUTH THREE TIMES DAILY NEEDED FOR 14 DAYS ibuprofen 800 mg tablet 800 mg PO TID PRN (Reason: Pain) Patient Comments: TAKE 1 TABLET BY MOUTH THREE TIMES DAILY WITH FOOD OR MILK gabapentin 100 mg capsule 100 mg PO TID Patient Comments: TAKE 1 CAPSULE BY MOUTH THREE TIMES DAILY FOR 14 DAYS Follow Up: Nery Rush MD [Active Staff] - (Mrs. Palomino should call the office to make an appointment for Saturday, July 11.) Documented By: Nery Rush MD 07/04/22 080 8 Signed By: <Electronically signed by Nery Rush MD> 07/04/22 08 [facility] Work Phone: 1(663) 740-281103-22-2023 Progress [facility], [facility] 7:57am Note Date/Time July 04, 2022 7:5 7am [facility] [address] [place] [address] Neurosurgery Progress Note Signed Patient: Yi Palomino MR#: [id number] : 1985 Acct:[id number] Age/Sex: 37 / F Adm Date: 3 Loc: 4N Room: [address] [place] [address] Type: ADM IN Attending Dr: Nery Rush MD Copies to: ~ Date of Service: 07/04/2022 Subjective Subjective HPI: Mrs. Palomino is post-op day #1 s/p lumbar discectomy left L5-S1. She is reporting resolution of her leg pain and walked the hallway with me well. Her incision site is intact; a new dressing was applied when I noted some blood oozing from the mid section of the incision site. Exam Physical Exam Vital Signs: Temp Pulse Resp BP Pulse Ox O2 Del Method O2 Flow Rate 97.7 F 80 16 119/81 97 Room Air 10 07/04/22 07:46 07/04/22 07:46 07/04/22 07:46 07/04/22 07:46 07/04/22 07:46 07/04/22 07:46 07/03/22 19:25 Const General: cooperative and no acute distress Nutritional Appearance: obese Orientation: alert, awake and oriented x3 HEENT Ears: hearing grossly normal bilaterally Face and sinus: normal facial exam Eyes General: appearance normal, both eyes and all related structures Periorbital: periorbital findings normal Eyelids: eyelids normal Conjunctivae: conjunctivae normal Sclera: sclerae normal EOM: EOM intact bilaterally Resp Effort & Inspection: normal respiratory effort Skin General: no rashes or lesions noted and other (Prineo is intact along the incision site; new dressing applied.) Neuro General: patient alert, patient awake and patient oriented x3 Cognition: normal cognition Speech: speech normal Gait: other (Tentative gait but Mrs. Palomino is able to bear weight on her left leg) Motor: strength 5/5 throughout Psych Appearance: grossly normal Mood: congruent mood Affect: normal affect Speech and Movement: speech and movement normal Attitude: cooperative Thought Process: normal Thought Content: normal Insight: insight good Judgment: judgment good Objective Lab Results Most Recent Labs: 07/04/22 04:43: PHA Creatinine Clear 148.42, Sodium 138, Potassium 4.2, [id number], Carbon Dioxide 21.9, Anion Gap 13.3, BUN 21, Creatinine 0.62, Est GFR (CKD-EPI) > 60.0, Glucose 133 H, Calcium 8.4 L 07/04/22 04:43: Corrected WBC 9.8, Uncorrected WBC Count 9.8, RBC 4.23, Hgb 12.0, Hct 35.3, MCV 83.6, MCH 28.4, MCHC 34.0, RDW 15.2, Plt Count 309, MPV 7.0,Neut % (Auto) 92.1, Lymph % (Auto) 6.3, Woodson % (Auto) 1.4, Eos % (Auto) 0.0, Baso % (Auto) 0.2, Nucleat RBC Rel Count 0.0, Neut # (Auto) 9.0 H, Lymph # (Auto) 0.6 L, Woodson # (Auto) 0.1, Eos # (Auto) 0.0, Baso # (Auto) 0.0 07/03/22 14:14: Urine HCG, Qual Negative Assessment/Plan Assessment/Plan (1) Lumbar radiculopathy: Plan: Mrs. Palomino is pod#1 s/p left L5-S1 discectomy secondary to S1 nerve root compression. She is doing well and will be discharged home today. She will follow-up with me next Saturday at which time we will discuss beginning physical therapy for restrengthening and reconditioning. She has been instructedto keep the dressing on the wound until Saturday afternoon after which she can remove the dressing and keep the area open to air. She will be discharged with pain medication (Randolph) and a muscle relaxant (Tizanidine). Code(s): M54.16 - Radiculopathy, lumbar region Status: Acute Time Spent With Patient (min): 30 Documented By: Nery Rush MD 07/04/22 075 0 Signed By: <Electronically signed by Nery Rush MD> 07/04/22 6902 [facility] Work Phone: 1(802) 720-944803-21-2023 History and physical note Author Nery Rush [facility] July 03, 2022 1:40pm Note Date/Time July 03, 2022 1:4 1pm [facility] [address] [place] [address] Neurosurgery H&P Signed Patient: Yi Palomino MR#: [id number] : 1985 Acct:[id number] Age/Sex: 37 / F Adm Date: 3 Loc: 4 Room: [address] [place] [address] Type: ADM IN Attending Dr: Nery Rush MD Copies to: MD Etta Wood MD~ Date of Service: 07/03/2022 History of Present Illness History of Present Illness Chief Complaint: Severe, unremitting left leg pain HPI: Mrs. Palomino is a 37 year old woman who, accompanied by her , presented to the ER reporting the onset of unremitting left leg pain. She was seen in my office last week reporting some left leg pain and lumbar MRI demonstrated a discherniation at left L5-S1. The pain was manageable and she was interested in exhausting her nonoperative measures, therefore plans were made for her to undergo epidural injection therapy coupled with aquatic therapy. Mrs. Palomino states she was making lunch for her son yesterday and when turning around she felt and heard a pop in her low back accompanied by severe, unremitting pain with numbness and tingling extending along the back of her leftleg. She could not move and despite trying to take medication and resting the pain was too severe therefore, she was brought to the emergency room for furtherevaluation and treatment. She denies bowel/bladder dysfunction and leg weakness. [facility] Vacc[facility] for COVID-19?: No Medical History (Updated 07/03/22 @ 12:25 by EMANUEL Vega) No pertinent past medical history Surgical History (Updated 07/03/22 @ 09:07 by Anny Concepcion RN) History of left oophorectomy Hx laparoscopic cholecystectomy Hx of appendectomy Hx of section Hx of removal of cyst Family History (Updated 07/03/22 @ 13:31 by Parris Rico RN) Mother Coronary artery disease Grandparent Cancer Social History Smoking Status: Never smoker Substance Use Type: None Meds Medications and Allergies Allergies sulfamethoxazole [From Bactrim] Allergy (Verified 07/03/22 09:04) Swelling trimethoprim [From Bactrim] Allergy (Verified 07/03/22 09:04) Swelling Home Medications cyclobenzaprine 10 mg tablet 10 mg PO TID PRN Pain 07/03/22 [History Confirmed 07/03/22] gabapentin 100 mg capsule 100 mg PO TID 07/03/22 [History Confirmed 07/03/22] ibuprofen 800 mg tablet 800 mg PO TID PRN Pain 07/03/22 [History Confirmed 07/03/22] Exam Physical Exam Vital Signs: Temp Pulse Resp BP Pulse Ox O2 Del Method 98.0 F 74 24 127/86 98 Room Air 07/03/22 09:09 07/03/22 11:29 07/03/22 11:29 07/03/22 11:29 07/03/22 11:29 07/03/22 11:29 Const General: acute distress and anxious Nutritional Appearance: overweight Orientation: alert, awake and oriented x3 HEENT Head: normal to inspection Ears: hearing grossly normal bilaterally Nose: external nose normal Face and sinus: normal facial exam Mouth: oral mucosae normal Eyes General: appearance normal, both eyes and all related structures (Wears glasses) Eyelids: eyelids normal Conjunctivae: conjunctivae normal Sclera: sclerae normal EOM: EOM intact bilaterally Resp Effort & Inspection: normal respiratory effort GI Inspection: obesity Palpation: soft Skin General: no rashes or lesions noted Neuro General: patient alert, patient awake, patient oriented x3, moves all extremities and unable to assess gait (Patient is in a lot of pain and is unableto bear weight on her left leg) Cognition: normal cognition Motor: strength 5/5 throughout Sensory Exam: other (Paresthesias noted along the left leg) Extrem General: normal to inspection Psych Appearance: grossly normal Mental Status: mental status grossly normal Mood: congruent mood Affect: tearful (Due to pain) Speech and Movement: speech and movement normal Attitude: cooperative Thought Process: normal Thought Content: normal Insight: insight good Judgment: judgment good Results Imaging MRI - spine: image reviewed (Disc herniation left L5-S1 in contact with S1 nerveroot) Assessment/Plan (1) Lumbar radiculopathy: Plan: Mrs. Palomino presented to the ER with severe, unremitting left leg pain. Her lumbar MRI demonstrates a disc herniation at left L5-S1 resulting in nerve root compression. Given the increase in her pain, we will proceed with lumbar discectomy. The risks of surgery were discussed in detail including bleeding, infection, CSF leak, no change in symptoms, reherniation of disc material and need for revision surgery. Reporting an understanding of the aforementioned, Mrs. Palomino grants consent to proceed. Code(s): M54.16 - Radiculopathy, lumbar region Status: Acute Time Spent With Patient (min): 30 Documented By: Nery Rush MD 07/03/22 132 7 Signed By: <Electronically signed by Nery Rush MD> 07/03/22 1340 [facility] Work Phone: [phone]) 305-940903-17-2023 Evaluation note* Encounter Date Diagnosis Assessment Notes Treatment Notes Treatment Clinical Notes Jun, Lumbar radiculopathy (ICD-10 - M54.16) [facility] [employer] Other 03-01-2023 Evaluation + Plan noteExtracted from: Title:ED Note Author:Kole PACHECO, Ray Hayden Ángel e:06/13/22 Sciatic pain (M54.30: Sciati ca, unspecified side) Urinary tract infection (N39.0: Urinary tract infection, site not specified) Orders: acetaminophen-oxycodone, 1 tab(s), Oral, q4hr for pain, 12 tab(s), Refill(s) 0, [facility], 154, cm, 06/13/22 8:29:00 EST, Height/Length Dosing, 115, kg, 06/13/22 8:29:00 EST, Weight Dosing cephalexin, 500 mg = 1 cap(s), Oral, q12hr, X 7 day(s), # 14 cap(s), Refills(s) 0, [facility], 154, cm, 06/13/22 8:29:00 EST, Height/Length Dosing, 115, kg, 06/13/22 8:29:00 EST, Weight Dosing Diagnostic Tests Pending * Urine Culture 06/13/22 [facility]03-01[facility]2023 Hospital Discharge instructions Patient Education 06/13/2022 11:03:23 Sciatica, Quza-wr-Eglk Sciatica Sciatica is pain, weakness, tingling, or loss of feeling (numbness) along the sciatic nerve. The sciatic nerve starts in the lower back and goes down the back of each leg. Sciatica usually goes away on its own or with treatment. Sometimes, sciatica may come back (recur). What are the causes? This condition happens when the sciatic nerve is pinched or has pressure put on it. This may be theresult of: A disk in between the bones of the spine bulging out too far (herniated disk). Changes in the spinal disks that occur with aging. A condition that affects a muscle in the butt. Extra bone growth near the sciatic nerve. A break (fracture) of the area between your hip bones (pelvis). . Tumor. This is rare. What increases the risk? You are more likely to develop this condition if you: Play sports that put pressure or stress on the spine. Have poor strength and ease of movement (flexibility). Have had a back injury in the past. Have had back surgery. Sit for long periods of time. Do activities that involve bending or lifting over and over again. Are very overweight (obese). What are the signs or symptoms? Symptoms can vary from mild to very bad. They may include: Any of these problems in the lower back, leg, hip, or butt: ?Mild tingling, loss of feeling, or dull aches. ?Burning sensations. ?Sharp pains. Loss of feeling in the back of the calf or the sole of the foot. Leg weakness. Very bad back pain that makes it hard to move. These symptoms may get worse when you cough, sneeze, or laugh. They may also get worse when you sitor stand for long periods of time. How is this treated? This condition often gets better without any treatment. However, treatment may include: Changing or cutting back on physical activity when you have pain. Doing exercises and stretching. Putting ice or heat on the affected area. Medicines that help: ?To relieve pain and swelling. ?To relax your muscles. Shots (injections) of medicines that help to relieve pain, irritation, and swelling. Surgery. Follow these instructions at home: Medicines Take yxgq-fvv-qklrwhm and prescription medicines only as told by your doctor. Ask your doctor if the medicine prescribed to you: ?Requires you to avoid driving or using heavy machinery. ?Can cause trouble pooping (constipation). You may need to take these steps to prevent or treat trouble pooping: ?Drink enough fluids to keep your pee (urine) pale yellow. ?Take lyfs-gxj-oyxtbtd or prescription medicines. ?Eat foods that are high in fiber. These include beans, whole grains, and fresh fruits and vegetables. ?Limit foods that are high in fat and sugar. These include fried or sweet foods. Managing pain If told, put ice on the affected area. ?Put ice in a plastic bag. ?Place a towel between your skin and the bag. ?Leave the ice on for 20 minutes, 2 3 times a day. If told, put heat on the affected area. Use the heat source that your doctor tells you to use, suchas a moist heat pack or a heating pad. ?Place a towel between your skin and the heat source. ?Leave the heat on for 20 30 minutes. ?Remove the heat if your skin turns bright red. This is very important if you are unable to feel pain, heat, or cold. You may have a greater risk of getting burned. Activity Return to your normal activities as told by your doctor. Ask your doctor what activities are safe for you. Avoid activities that make your symptoms worse. Take short rests during the day. ?When you rest for a long time, do some physical activity or stretching between periods of rest. ?Avoid sitting for a long time without moving. Get up and move around at least one time each hour. Exercise and stretch regularly, as told by your doctor. Do not lift anything that is heavier than 10 lb (4.5 kg) while you have symptoms of sciatica. ?Avoid lifting heavy things even when you do not have symptoms. ?Avoid lifting heavy things over and over. When you lift objects, always lift in a way that is safe for your body. To do this, you should: ?Bend your knees. ?Keep the object close to your body. ?Avoid twisting. General instructions Stay at a healthy weight. Wear comfortable shoes that support your feet. Avoid wearing high heels. Avoid sleeping on a mattress that is too soft or too hard. You might have less pain if you sleep baron mattress that is firm enough to support your back. Keep all follow-up visits as told by your doctor. This is important. Contact a doctor if: You have pain that: ?Wakes you up when you are sleeping. ?Gets worse when you lie down. ?Is worse than the pain you have had in the past. ?Lasts longer than 4 weeks. You lose weight without trying. Get help right away if: You cannot control when you pee (urinate) or poop (have a bowel movement). You have weakness in any of these areas and it gets worse: ?Lower back. ?The area between your hip bones. ?Butt. ?Legs. You have redness or swelling of your back. You have a burning feeling when you pee. Summary Sciatica is pain, weakness, tingling, or loss of feeling (numbness) along the sciatic nerve. This condition happens when the sciatic nerve is pinched or has pressure put on it. Sciatica can cause pain, tingling, or loss of feeling (numbness) in the lower back, legs, hips, andbutt. Treatment often includes rest, exercise, medicines, and putting ice or heat on the affected area. This information is not intended to replace advice given to you by your health care provider. Make sure you discuss any questions you have with your health care provider. Document Released: 01/08/2009 Document Revised: 04/20/2019 Document Reviewed: 04/20/2019 [employer] Patient Education 2019 [employer]. Follow Up Care 06/13/2022 08:14:31 With:[facility] Physical Therapy Department Address:Unknown When:06/16/2022 10:46:54 With:XXXX NONE Address: [place] When:Within 3 Day(s) [facility]09-30-2021 Evaluation note* Encounter Date Diagnosis Assessment Notes Treatment Notes Treatment Clinical Notes Dec, Contact with and (suspected) exposure to other viral communicable diseases (ICD-10 - Z20.828) Advised patient that COVID antigen test was negative today. Patient needs to continue quarantine period due to exposure. Advised patient to continue supportive care as directed, increase fluids and rest, Tylenol/Motrin as directed, OTC cough/cold remedies as directed on packaging, cool mist humidifier, throat lozenges. Discussed infection control practices such as good hand washing and mask wearing. Patient to follow up with PCP if sx persist or worsen despite treatment. Immediate eval for warning s/sx as discussed. Patient verbalizes understanding and is agreeable to treatment plan Dec, Other Additional time spent conducting pre-visit phone call, screening for symptoms, instructions on social distancing, application and removal of PPE, and cleaning of examination room, equipment and supplies was preformed. Patient education given for testing methodology and results. Patient care instructions given in writting by [facility] document [facility] Other Evaluation note* Diagnosis Onset Date Resolution Status Intractable back pain acute Lumbar radiculopathy acute Unable to ambulate acute [facility] Work Phone: Evaluation noteNo InformationNort [employer] Other History general Narrative - Reported* Type Description Date Surgical History cholecystectomy Surgical History appendectomy Surgical History cyst removal right ovary Surgical History left ovary removed Hospitalization History see above surgical hx [facility] Other History general Narrative - Reported* Type Description Date Surgical History cholecystectomy Surgical History appendectomy Surgical History cyst removal right ovary Surgical History left ovary removed Surgical History lumbar discectomy - left L5-S1 2022 Hospitalization History see above surgical hx [facility] Other Hospital course Narrative No data available for this section [facility] data available for this section [facility] Summary Purpose Family History Relationship Condition Age at Onset Recorded Date/T alissa Not Specified Coronary artery disease Unknown grandparent Malignant neoplasm Unknown Advance Directives Advance Directive Response Recorded Date/ Time Advance Directives No July 03 023 9:47am Chief Complaint and Reason for Visit Chief Complaint back pain Reason for Visit Intractable back joycelyn n Lumbar radiculopathy Unable to ambulate Chief Complaint back pain m51.27 Reason for Visit Intractable back joycelyn n Lumbar radiculopathy Unable to ambulate Reason for Referral Reason [facility] location - angelique luate and treat - pt will have a letter from provider at start of care Diagnosis 1 Lumbosacral disc her niation (M51.27) Referral Organization [facility] Ne urosurgery Referring Provider First Name Nery Referring Provider Last Name Victor Manuel Referring Provider Specialty Neurologica l Surgery Referred Organization [facility] Referred Address [address],[place], [place],[address] Referred Provider Specialty Physical The rapist Referral Priority Routine Reason CANCELLED Left L5- S1 epidural ; PLEASE TRY TO SCHEDULE PAOLA Diagnosis 1 Lumbosacral disc her niation (M51.27) Referral Organization [facility]gery Referring Provider First Name Nery Referring Provider Last Name Victor Manuel Referring Provider Specialty Neurologica l Surgery Referred Organization [facility] Referred Provider Drake Sánchez Referred Address [address] ,[place], [place],[address] Referred Provider Specialty Pain Medicin e Referral Priority Urgent General Notes Deirdre Sotelo 023 07:35:45 AM >Received today and sent P2P. Glo Sears 07/02/2022 12:20:43 PM >pt has been scheduled 07/04/22 Glo Sears 07/05/2022 10:43:06 AM >pt appt was cancelled due to inpatient stay, she ended up having surgery by Dr Rush and per patient she no longer needs to come in for injections. Incoming referral is being closed, wanted to make you aware. Deirdre Sotelo 07/05/2022 10:53:30 AM >OK, thank you for the update Additional Source Comments REASON FOR VISIT (unrecogniz ed section and content) #24 ZARATE TRAILBLAZER, EXPOSED TO , VOMITTING, DIARRHEA X2 DAYSreferred by Yi Irving, Nurse Practitioner, Left leg painNo InformationLeft L5-S1 discectomyReferral updateNo Informations/p lumbar discectomyWoundNo Information5 weeks s/p lumbar discectomyaddendum INFORMATION SOURCE (unrecogn ized section and content) DATE CREATED AUTHOR 06/10/2022 [facility] dical Specialist DATE CREATED AUTHOR AUTHOR'S ORGANIZ ATION 06/14/2022 [facility] DATE CREATED AUTHOR AUTHOR'S ORGANIZ ATION 06/16/2022 [facility] DATE CREATED AUTHOR AUTHOR'S ORGANIZ ATION 08/21/2022 [facility] DATE CREATED AUTHOR AUTHOR'S ORGANIZ ATION 07/06/2023 [facility] dical Specialists EPIC Care Teams (unrecognized sec tion and content) Center Machine Set Up Operator Relationship Specialty Start Date End Date Glo Antoine MD [address] [facility] [place] [address] PCP - General Family Medicine 09/26/22 Yi Irving NP [address] [place], [place] [id number] [facility] Team Status: Active Member Role Status Dates Etta Mario MD Primary Care Provider Active Team Status: Inactive Member Role Status Dates Etta Mario MD Primary Care Provider Active [facility]- Emergency Provider Active Nery Rush MD Admit Provider, Attending Provid er Active FOR RECORDS PERTAINING TO PATIENTS WHO ARE OR HAVE BEEN ENROLLED IN A CHEMICAL DEPENDENCY/SUBSTANCEABUSE PROGRAM, SOME INFORMATION MAY BE OMITTED. This clinical summary was aggregated from multiple sources. Caution should be exercised in using it in the provision of clinical care. This summary normalizes information from multiple sources, and as a consequence, information in this document may materially change the coding, format and clinical context of patient data. In addition, data may be omitted in some cases. CLINICAL DECISIONS SHOULD BE BASED ON THE PRIMARY CLINICAL RECORDS. [facility] [employer] [facility]. provides no warranty or guarantee of the accuracy or completeness of information in this document.
[2024-05-27 12:35] LABS: HCG Qualitative NEGATIVE (NEGATIVE); Internal Control Within Normal Limits
[2024-05-27] MEDS: LACTATED RINGER'S SOLUTION 1,000 ML 50 ML IV ×2 (12:57→16:01)
[2024-05-27] MEDS: CEFTRIAXONE 1,000 MG in 0.9 % SODIUM CHLORIDE 50 ML 100 MG IV (13:35)
--- NOTE | 2024-05-27 13:54 | P.URON_ITS ---
Urology Surgery Operative Note Operative Note Procedure Date: 05/27/24 Time Out Performed: yes Pre-op Diagnosis: Right ureteropelvic junction stone with hydronephrosis Post-op Diagnosis: other (Right ureteropelvic junction stone with hydronephrosis, right proximal ureteral stricture) Procedures performed: Cystoscopy, right retrograde pyelogram, ureteroscopy laser lithotripsy/stone extraction, stent placement Anesthesia: General-LMA (Dr. Munson) Primary Surgeon: Erin Chavez Complications: none Estimated blood loss (mL): 0 Findings: R RPG- narrow UPJ/proximal ureter 1 cm segment, ~ 10Fr, no contrast proximal to radiopaque stone. Proximal ureter limiting sheath and ureteroscopy. Large, hard 13x8 mm right UPJ stone underwent laser lithotripsy and stone extraction. Small fragments remain due to inability to dust and basket extract all pieces. Specimens: right kidney stone Drains: 6Fr x 24 cm JJ right ureteral stent Incision: none Indications for Procedures: 39 year old female recently diagnosed with 13x8 mm right ureteropelvic junction stone with hydronephrosis, pain and UTI at ER 05/22/24 presents for definitive stone treatment. She has been on oral cephalexin. Urine culture was negative. After discussion of risks/benefits of management options, the patient elected to proceed with cystoscopy, right retrograde pyelogram, ureteroscopy with laser lithotripsy/stone extraction, ureteral stent placement under general anesthesia. Risks were discussed including but not limited to bleeding, pain, infection, damage to surrounding structures, inability to treat the stone/place a stent, and need for additional procedures. The patient understands the stent is not permanent and needs to be removed or exchanged within 3 months to prevent encrustation, infection, invasive procedures and/or permanent renal damage. Detailed description of Procedure: After informed consent was obtained, the patient was brought to the operating room and transferred onto the operating table in supine position. Sequential compression devices were placed on bilateral lower extremities. The patient received the appropriate dose of preoperative IV antibiotics and general anesthesia was induced. They were positioned in modified dorsolithotomy with the appropriate pressure points padded, prepped, and draped in the usual sterile fashion for this procedure. An operative safety timeout was performed confirming the patient's identity, laterality and procedure, and all present agreed to proceed. I began by inserting a 22 Kinyarwanda rigid cystoscope with 30 degree lens into the patient's urethra and bladder without difficulty. There were no bladder tumors, lesions, stones or foreign bodies. Cystitis cystica was noted. Bilateral ureteral orifices were orthotopic and patent. I turned my attention to the right ureteral orifice and a 6- Kinyarwanda open-ended catheter was inserted into the ureteral orifice and dilute contrast was injected for retrograde pyelogram with findings as above. A Sensor wire was inserted into the ureter up to the renal pelvis confirmed on fluoroscopy. An 10/12 Kinyarwanda by 25 cm ureteral access sheath was inserted over the wire in a sequential fashion to gain access to the stone, unable to advance past proximal ureter due to stricture. Next a flexible ureteroscope was inserted through the sheath and advanced to the renal pelvis under fluoroscopic guidance until the stone was reached. A 275 ?m thulium laser fiber was used to break the stone into fragments which were then removed with a 1.8 tipless nitinol basket. Due to limited view given unable to irrigate renal pelvis well, remaining fragments were further lithotripsied into small passable fragments < 2mm. After the stone was adequately treated, a full renoscopy was performed confirming no significant residual stones or fragments remained. Contrast was injected to assist with mapping for the renoscopy. The wire was reinserted and a pull down ureteroscopy was performed confirming no stones remained in the ureter. Contrast was injected for retrograde pyelogram confirming no extravasation of contrast, filling defects or hydronephrosis. The wire was backloaded through the cystoscope and 6 Fr x 24 cm JJ ureteral stent was advanced over the wire, noting adequate curl in the renal pelvis and bladder on fluoroscopic and direct visualization. The bladder was drained and inspected one final time to ensure adequate position of stent and no undue trauma to the bladder was done. The stones were sent for pathology and the cystoscope was removed. The patient tolerated the procedure well without complication. The patient was awakened from anesthesia and sent to PACU in stable condition. Plan: Discharge home with stent pain medications. Follow up in for in-office cystoscopy, stent removal in 2-3 weeks Other Provider present: No Post Operative care instructions: See discharge instructions Attending Doc Confirm Attending Attestation: Yes
[2024-05-27] MEDS: IOHEXOL 240 MG/ML - 10 ML VIAL INJ (14:15)
[2024-05-27] MEDS: ONDANSETRON PF 4 MG/2 ML VIAL IV (15:52)
[2024-05-27] MEDS: PROMETHAZINE HCL 25 MG/ML VIAL 12.5 MG IM ×2 (16:05→17:30)
--- NOTE | 2024-05-27 16:20 | PC.NURSE ---
Copious amount of bile emesis
--- NOTE | 2024-05-27 16:23 | PC.NURSE ---
Placed on bedpan for urge to void; no further emesis, but c/o nausea
--- NOTE | 2024-05-27 16:25 | PC.NURSE ---
Medicated with Zofran IV as ordered
--- NOTE | 2024-05-27 16:33 | PC.NURSE ---
Scant amount of emesis; remains on bedpan
--- NOTE | 2024-05-27 16:34 | PC.NURSE ---
Medicated with Phenergan IM as ordered
--- NOTE | 2024-05-27 16:36 | PC.NURSE ---
Remains on bedpan
--- NOTE | 2024-05-27 16:38 | PC.NURSE ---
Remain on bedpan; no further emesis
--- NOTE | 2024-05-27 16:41 | PC.NURSE ---
Removed from bedpan; did not void. States nausea better
--- NOTE | 2024-05-27 17:11 | PC.NURSE ---
Up to bathroom and voids light red urine without difficulty; no clots noed; sitting in chair; continues to c/o nausea; no further emesis
--- NOTE | 2024-05-27 17:44 | PC.NURSE ---
Retching; no emesis; Dr. Chavez phoned and order received; medicated with Phenergan IM as ordered
--- NOTE | 2024-05-27 18:34 | PC.NURSE ---
Continues to c/o nausea; Dr. Chavez phoned and ordered received for oral nausea medication
--- NOTE | 2024-05-27 18:37 | PC.NURSE ---
Refused oral antiemetic; states that she wants to go home; up to bathroom and voids light red urine without difficulty
[2024-06-03 21:10] LABS: Calcium Oxalate Dihydrate 30 % (.); Calcium Oxalate Monohydrate 70 % (.); Size 4x3 mm (.)
== END 2024-05-27 18:25 | disposition home or self-care (01) ==
PROVIDERS: PCP Family Medicine; Visit Provider Urology
PROC: (CPT 918; principal; 2024-05-27 13:30)
DX: N13.2 Hydronephrosis with renal and ureteral calculous obstruction (principal); Z87.440 Personal history of urinary (tract) infections; E66.01 Morbid (severe) obesity due to excess calories; Z68.43 Body mass index [BMI] 50.0-59.9, adult; Z90.49 Acquired absence of other specified parts of digestive tract; Z90.721 Acquired absence of ovaries, unilateral
CPT/HCPCS: 52356; 36415; 74420; 82365; 84703; 99999; J0131; J0696; J1100; J1885; J2250; J2405; J2550; J2704; J3010; Q9966

== ENCOUNTER 2024-06-09 02:16 | Emergency (ER) | payer BC, SELFPAY ==
--- OUTSIDE RECORDS SUMMARY | 2024-06-09 02:23 | XMS_ITS | CCD ---
Author Organization [facility] Care Team Providers Care Vice President Business & Corporate Development Name Role Phone Nalini Live Unavailable NONE, XXXX Primary Care Physician Unavailab DR GLO Quinonez Primary Care Unavailable SEBASTIEN LYNCH Consulting Unavailable LYNSEY CERVANTES Attending Unavailable LYNSEY CERVANTES Admitting Unavailable MD Etta Mario Primary Care Provider [facility], [facility] Beth Espinoza Emergency Provider [phone]( [phone] MD Nery Rush Admit Provider MD Nery Rush Attending Provider [phone] Blades, Nery Unavailable Drake Sánchez Unavailable Etta Mario Primary Care Unavailable Blades, Nery Camacho Attending Unavailable Blades, Nery A Admitting Unavailable Etta Mario Primary Care Unavailable Blades, Nery Camacho Attending Unavailable Blades, Nery A Admitting Unavailable ROSE GREEN Attending Unavailab RASHAAD Sanabria Attending Unavailable YI IRVING Attending Unavailable Glo Antoine MD Primary Care Provider Yi Irving NP Unavailable GLO ANTOINE Primary Care Physician Erin Chavez Attending Unavailable Erin Chavez Attending Unavailable Erin Chavez Attending Unavailable Allergies Allergy Classification Reported Allergen(s) Allergy Type Date of Onset Reaction(s) Facility (17 sources) Sulfamethoxazole / Trimethoprim; Translations: [sulfamethoxazole-tr imethoprim] Drug Allergy 3 rash, Unknown, Unknown (qualifier value) [facility] Work Phone: (2 sources) Sulfamethoxazole / Trimethoprim; Translations: [Bactrim] Drug Allergy 3 [facility] (3 sources) Sulfamethoxazole; Translations: [sulfamethoxazole] Drug Allergy 3 [facility] (3 sources) Trimethoprim; Translations: [trimethoprim] Drug Allergy 3 [facility] Medications Current Medications Medication Drug Class(es) Dates Sig (Normalized) Sig (Original) Acetaminophen / Hydrocodone (3 sources) Opioid Agonist Start: 05-27-2024 acetaminophen-hydr ocodone See Instructions, Refill(s) 0 Start Date: 05/27/24 Status: Ordered Start: 07-04-2022 take 1 tablet by louis th every six hours as needed Hydrocodone-Acetaminophen Active 1 TAB P O Q6H 56 14 July 04, 2022 1 tab orally as needed acetaminophen 325 mg / oxyCODONE hydrochloride 5 mg oral tablet (1 source) Opioid Agonist Start: 06-13-2022 take 1 tablet by mouth every four hours for pain acetaminophen-oxycodone 325 mg-5 mg Tab 1 tab(s), Oral, q4hr for pain, 12 tab(s), Refill(s) 0, [id number], 154, cm, 06/13/22 8:29:00 EST, Height/Length Dosing, 115, kg, 06/13/22 8:29:00 EST, Weight Dosing Start Date: 06/13/22 Status: Ordered [id number] 200 actuat albuterol 0.09 mg/actuat metered dose inhaler (5 sources) beta2-Adrenergic Agonist Start: 06-01-2023 End: 05-31-2024 [...] sources) BuSpar Active cephalexin 500 mg oral tablet (2 sources) Cephalosporin Antibacterial Start: 05-27-2024 cephalexin 500 mg, Oral, Refills(s) 0 Start Date: 05/27/24 Status: Ordered Start: 06-13-2022 End: 06-20-2022 take 1 capsule by mouth every twelve hours cephalexin 500 mg Cap 500 mg = 1 cap(s), Oral, q12hr, X 7 day(s), # 14 cap(s), Refills(s) 0, Pharmacy: [facility] 1429, 154, cm, 06/13/22 8:29:00 EST, Height/Length Dosing, 115, kg, 06/13/22 8:29:00 EST, Weight Dosing Start Date: 06/13/22 Stop Date: 06/20/22 Status: Ordered ethinyl estradiol 0.035 mg / norgestimate 0.25 mg oral tablet (3 sources) Progestin, Estrogen Start: 03-12-2023 norgestimate-ethinyl estradiol (Ortho-Cyclen) 0.25-35 MG-MCG tablet Indications: Encounter for initial prescription of contraceptive pills , Irregular menses Take 1 tablet by mouth in the morning. 84 tablet 03/12/2023 Active gabapentin 300 mg oral capsule (14 sources) Anti-epileptic Agent Start: 07-04-2022 take 300 mg by mouth twice daily Gabapentin Active 300 MG PO Twice daily 60 30 July 04, 2022 12:00am Start: 07-03-2022 End: 07-04-2022 take 100 mg by mouth three times daily Gabapentin Discontinued 100 MG PO Three times daily July 03, 2022 12:00am July 04, 2022 1:38pm take 1 tablet by louis th every twenty-four hours Gabapentin 800 MG 1 tablet Orally Once a day Not-Taking Naltrexone (2 sources) Opioid Antagonist Naltrexone 380 MG as directed Intramuscular Active tamsulosin hydrochloride 0.4 mg oral capsule (1 source) alpha-Adrenergic Von Start: take 0.4 mg by mouth once daily tamsulosin 0.4 mg, Oral, Daily, Refills(s) 0 Start Date: 05/27/24 Status: Ordered tiZANidine 4 mg oral capsule (2 sources) [...] Problem Date Documented Date Episodic/Chronic Adjustment disorders (5 sources) Adjustment disorder; Translations: [Adjustment disorder, unspecified] Onset: 11-28-2022 11-28-2022 Chronic Calculus of urinary tract (1 source) Kidney stone 05-27-2024 Episodic Deficiency and other anemia (1 source) Anemia 05-27-2024 Episodic Osteoarthritis (11 sources) Arthritis of left hip; Translations: [Unilateral primary osteoarthritis, left hip] Onset: 09-25-2022 09-25-2022 Chronic Other diseases of kidney and ureters (1 source) Urinary tract obstruction; Translations: [Hydronephrosis with renal and ureteral calculous obstruction] Onset: 05-27-2024 Episodic Other nervous system disorders (2 sources) Unable to walk; Translations: [Difficulty in walking, not elsewhere classified] 07-03-2022 Chronic Other nervous system disorders (2 sources) Difficulty in walking, not elsewhere classified; Translations: [Difficulty in walking] 07-04-2022 Chronic Other nervous system disorders (5 sources) Chronic pain; Translations: [Other chronic pain] Onset: 09-25-2022 09-25-2022 Chronic Other non-traumatic joint disorders (3 sources) Pain in left hip; Translations: [PAIN IN LEFT HIP] Onset: 06-11-2022 Episodic Other nutritional; endocrine; and metabolic disorders (5 sources) Morbid obesity; Translations: [Morbid (severe) obesity due to excess calories] Onset: 09-25-2022 09-25-2022 Chronic Spondylosis; intervertebral disc disorders; other back problems (20 sources) Displacement of lumbar intervertebral disc without myelopathy; Translations: [Other intervertebral disc displacement, lumbosacral region] Onset: 09-25-2022 Chronic Unclassified (1 source) Other intervertebral disc displacement, lumbosacral region; Translations: [Other intervertebral disc displacement, lumbosacral region] Onset: 07-11-2022 Unclassified (1 source) Obstructive hydronephrosis 05-27-2024 Urinary tract infections (1 source) Urinary tract [...] Resolved: 01-12-2021 Episodic Other nervous system disorders (5 sources) Paresthesia; Translations: [Paresthesia of skin] Onset: 09-25-2022 09-25-2022 Episodic Spondylosis; intervertebral disc disorders; other back problems (19 sources) Sciatica; Translations: [Sciatica, unspecified side] Onset: 06-13-2022 Episodic Results Test Name Value Interpretation Reference Range Facility HCG QUALITATIVE*on 5 [facility] , QUAL Negative NEGATIVE [facility] Office/Clinic Noteon 05-27-2024 Urology Office/Clinic Note Urology Office/Clinic Note Chief Complaint ER f/u HPI Staff 39yr old female pt here for ER f/u. Pt was seen 05/22/24 for abdominal pain. She had large proximal kidney stone and UTI. She was given IV Rocephin, [place], Flomax, Keflex. CT was done showing UPJ stone w/ moderate hydronephrosis (unlikely to pass spontaneously), bladder wall thickening, ovarian cyst, slight hepatic stenosis, and splenomegaly. Pt has been NPO since about 5pm last night. Dysuria: denies Incomplete bladder emptying: denies Hematuria: denies Frequency: denies Urgency: yes Nocturia: at least 1-2x Stream: good stream Leaking: yes Post void dripping: denies Wearing pads/ Depends: wears a pad Urge incontinence: denies Stress incontinence: denies Incontinence without Sensory Awareness: denies Abdominal pain: right lower abdominal pain Flank pain: denies History of Present Illness Tests reviewed: reviewed UA, external ER notes & imaging & labs I have reviewed the previous health record information and history for this patient from external providers. I have reviewed and verified the staff HPI to be accurate for this encounter. Review of Systems PHQ Score Initial Depression Screen Score: 0 SCORE ROS - Provider Constitutional: denies weight loss, denies hot flashes. Eyes: denies eye problems. Gastrointestinal: denies nausea, denies vomiting. Cardiovascular: denies chest pain or angina. Integumentary: no dryness Musculoskeletal: denies musculoskeletal symptoms. ENMT: denies otolaryngeal symptoms. Respiratory: no shortness of breath. Heme/Lymph: denies easy bleeding tendency, denies easy bruising tendency. Psychiatric: no confusion, no anxiety. Genitourinary: See HPI. Physical Exam Vitals & Measurements HR: 64(Peripheral) RR: 18 BP: 135/80 HT: 61 in HT: 155 cm WT: 126.4 kg WT: 278.664 lb BMI: 52.61 General Appearance: alert , no acute distress, well nourished, well developed female. Head: normocephalic . Eyes: normal orbit and globe. ENMT: normal examination of external ears. Chest: symmetric chest rise, respirations non labored . Cardiovascular: regular rate and rhythm. Abdomen: soft , non distended, mild tenderness RUQ Genitourinary: bladder nonpalpable, no flank tenderness. Skin: warm, dry, no bruising. Psychiatric: cooperative, affect appropriate for age, normal judgement, euthymic mood. Assessment/Plan Yi is a 39 yo female new pt here for f/u to ER due to kidney stones. Pt here with her today. BBS 22. 1. Ureteral stone with hydronephrosis (N13.2: Hydronephrosis with renal and ureteral calculous obstruction) CT AP w con 05/22/24 [facility] - 1.3 x 0.8 cm R UPJ stone with moderate hydro. R urothelial thickening. Distal ureter is decompressed. No other stones noted. First stone UA today shows small blood and small leuks. Taking Keflex from ER despite neg ucx. Still experiencing RLQ pain. Denies fever or chills. Occasional nausea. Reviewed imaging results. Advised pt stone will need intervention given size of stone. Discussed intervention including extracorporeal shockwave lithotripsy vs ureteroscopy with laser lithotripsy/stone basket extraction possible stent. Risks/benefits of each were discussed including but not limited to: ESWL- bleeding, hematoma, pain, infection, inability to break up the stone, ureteral obstruction, cardiac arrhythmias, damage to surrounding structures and need for additional procedures; ureteroscopy - bleeding, pain, infection, damage to surrounding structures, ureteral perforation, stricture, inability to treat the stone and need for additional procedures. If a stent is placed, pt understands this is not permanent and needs to be removed or exchanged within 3 months to prevent encrustation, infection, permanent renal damage and need for more invasive procedures. Pt prefers to proceed with ureteroscopy. -Will schedule a Cystoscopy with Right Retrogrades, Right Ureteroscopy, Right Laser Litho, Right Stone Basket, Right stent placement. The procedure risks, benefits, alternatives and complications have been discussed with the patient. These include but are not limited to bleeding, pain, infection, ureteral perforation, extravasation, stricture formation, sepsis, obstruction, inability to reach the stone, inability to fragment the stone, and inability to retrieve all stone fragments. The need for ancillary procedures such as stent placement and removal, retrograde urography, and percutaneous nephrostomy were also discussed. The patient also understood that a ureteral stent may be placed and removal of the stent is critical. Failure to follow up for stent removal can result in recurrent UTIs, encrustation of the stent, loss of kidney function and need for nephrectomy. All of their questions and concerns have been addressed. Full informed consent has been obtained. Will order General anesthesia. -Discussed risk of needing additional procedures if unable to treat stone today Follow-up With Wh (more content not included)... [facility] Comment on above: Result Comment: Elec tronically Signed By: Erin Chavez MDbr\Date and Time Signed: 05/27/24 11:36 EST XR URETHROGRAM RETROGRADEon 05-27-2024 [place] [address] XRay Report Signed Patient: YI PALOMINO MR#: [id number] : 1985 Acct:[id number] Age/Sex: 39 / F ADM Date: 05/27/24 Loc: [facility] Attending Dr: Erin Chavez M.D. Ordering Physician: Erin Chavez M.D. Date of Service: 05/27/24 Procedure(s): XR urethrogram retrograde Accession Number(s): [id number] cc: GLO ANTOINE ; Erin Chavez M.D. [place] [address] Patient Name: YI PALOMINO MRN: [id number] date: 1985 Sex: F Assigned Patient Location: [facility] Current Patient Location: [facility] Accession/Order Number: [id number] Exam Date: 05/27/2024 13:45 Report Date: 05/27/2024 15:50 At the request of: ERIN CHAVEZ Procedure: XR urethrogram retrograde EXAM: XR urethrogram retrograde HISTORY: RIGHT KIDNEY STONE COMPARISON: None. TECHNIQUE: 5 fluoroscopic images. 22.2 mg FINDINGS: 5 images demonstrate retrograde injection of iodinated contrast into the right renal collecting system with placement of a double-J ureteral stent XR/XR urethrogram retrograde IMPRESSION: Ureteral stent placement Electronically authenticated by: DARRELL OLVERA Date: 05/27/2024 15:50 Dictated By: Darrell Olvera M.D. Signed By: 05/27/24 155 DD/ 49 TD/TT: Donor Services Technician: [facility] Radiology, Radiologist, - 05/27/2024 [facility] [place] [id number] XRay Report Signed Patient: YI PALOMINO MR#: [id number] : 1985 Acct:[id number] Age/Sex: 39 / F ADM Date: 05/27/24 Loc: SURGOUT Attending Dr: Erin Chavez M.D. Ordering Physician: Erin Chavez M.D. Date of Service: 05/27/24 Procedure(s): XR urethrogram retrograde Accession Number(s): [id number] cc: GLO ANTOINE ; Erin Chavez M.D. The [address] [address] Patient Name: YI PALOMINO MRN: [facility]:[id number] date: 1985 Sex: F Assigned Patient Location: [facility] Current Patient Location: [facility] Accession/Order Number: [id number] Exam Date: 05/27/2024 13:45 Report Date: 05/27/2024 15:50 At the request of: ERIN CHAVEZ Procedure: XR urethrogram retrograde EXAM: XR urethrogram retrograde HISTORY: RIGHT KIDNEY STONE COMPARISON: None. TECHNIQUE: 5 fluoroscopic images. 22.2 mg FINDINGS: 5 images demonstrate retrograde injection of iodinated contrast into the right renal collecting system with placement of a double-J ureteral stent XR/XR urethrogram retrograde IMPRESSION: Ureteral stent placement Electronically authenticated by: DARRELL OLVERA Date: 05/27/2024 15:50 Dictated By: Darrell Olvera M.D. Signed By: 05/27/241551 DD/ 49 TD/TT: Donor Services Technician: FR[facility] Radiology Study observation (narrative) FRITZ [facility] XR URETHROGRAM RETROGRADEOrd ered By: Radiologist Radiology on 05-27-2024 [facility] [employer] Work Phone: Basophils Auto (Bld) [#/Vol] Ordered By: Nery Blades on 07-11-2022 Basophils (Bld) [#/Vol] 0.0 10*3/uL 0.0-0.2 [facility] Basophils/100 WBC Auto (Bld) Ordered By: Nery Blades on 07-11-2022 Basophils/100 WBC (Bld) 0.4 % . F [facility] Complete Blood Count Auto Di ffon 07-11-2022 Basophils (Bld) [#/Vol] 0.0 10*3/uL Normal 0.0-0.2 [facility] Comment on above: Order Comment: PT IS NON FASTING Result Comment: PERF ORMED BY: [place] [address] PATHOLOGIST CARVING MACHINE OPERATOR ZOE GUEVARA M.D. Performed By: #### C BC #### [facility] [address] [place] [address] Basophils/100 WBC (Bld) 0.4 % Normal . [facility] Comment on above: Order Comment: PT IS NON FASTING Performed By: #### C BC #### [facility] [address] Eosinophils (Bld) [#/Vol] 0.4 10*3/uL Normal 0.0-0.45 [facility] Comment on above: Order Comment: PT IS NON FASTING Performed By: #### C BC #### [facility] [address] [place] [address] Eosinophils/100 WBC (Bld) 4.2 % Normal . [facility] Comment on above: Order Comment: PT IS NON FASTING Performed By: #### C BC #### [facility] [address] [place] [address] Erythrocyte distribution width (RBC) [Ratio] 14.9 % Normal 11.9-15.3 [facility] Comment on above: Order Comment: PT IS NON FASTING Performed By: #### C BC #### [facility] [address] [place] [address] Hematocrit (Bld) [Volume fraction] 36.6 % Normal 34.0-46.4 [facility] Comment on above: Order Comment: PT IS NON FASTING Performed By: #### C BC #### [address] Hemoglobin (Bld) [Mass/Vol] 12.3 g/dL Normal 11.8-15.4 [facility] Comment on above: Order Comment: PT IS NON FASTING Performed By: #### C BC #### [address] Lymphocytes (Bld) [#/Vol] 1.9 10*3/uL Normal 1.00-4.8 [facility] Comment on above: Order Comment: PT IS NON FASTING Performed By: #### C BC #### [address] Lymphocytes/100 WBC (Bld) 18.7 % Normal . [facility] Comment on above: Order Comment: PT IS NON FASTING Performed By: #### C BC #### [address] MCH (RBC) [Entitic mass] 28.5 pg Normal 24.7-34.3 [facility] Comment on above: Order Comment: PT IS NON FASTING Performed By: #### C BC #### [address] MCV (RBC) [Entitic vol] 84.6 fL Normal 80-100 F [facility] Comment on above: Order Comment: PT IS NON FASTING Performed By: #### C BC #### [address] Mean Corpuscular HGB Conc 33.7 g/dL Normal 32.0-35.0 [facility] Comment on above: Order Comment: PT IS NON FASTING Performed By: #### C BC #### [address] Monocytes (Bld) [#/Vol] 0.7 10*3/uL Normal 0.0-0.8 [facility] Comment on above: Order Comment: PT IS NON FASTING Performed By: #### C BC #### [address] [place] [address] [place] Monocytes/100 WBC (Bld) 6.8 % Normal . [facility] Comment on above: Order Comment: PT IS NON FASTING Performed By: #### C BC #### [facility] [address] Neutrophils (Bld) [#/Vol] 7.0 10*3/uL Normal 1.8-7.7 [facility] Comment on above: Order Comment: PT IS NON FASTING Performed By: #### C BC #### [facility] [address] Neutrophils/100 WBC (Bld) 69.9 % Normal . [facility] Comment on above: Order Comment: PT IS NON FASTING Performed By: #### C BC #### [address] NRBC% 0.1 /100{WBC} Normal 0-0.5 [facility] Comment on above: Order Comment: PT IS NON FASTING Performed By: #### C BC #### [facility] [address] Platelet mean volume (Bld) [Entitic vol] 7.2 fL Normal 6.3-10.7 [facility] Comment on above: Order Comment: PT IS NON FASTING Performed By: #### C BC #### [place] [address] [place] Platelets (Bld) [#/Vol] 334 10*3/uL Normal 150-450 [facility] Comment on above: Order Comment: PT IS NON FASTING Performed By: #### C BC #### [facility] [address] [place] [address] [place] RBC (Bld) [#/Vol] 4.33 10*6/uL Normal 3.60-5.00 [facility] Comment on above: Order Comment: PT IS NON FASTING Performed By: #### C BC #### [facility] [address] [place] [address] [place] WBC (Bld) [#/Vol] 10.0 10*3/uL Normal 3.8-11.6 [facility] Comment on above: Order Comment: PT IS NON FASTING Performed By: #### C BC #### [facility] [address] Eosinophils Auto (Bld) [#/Vo l]Ordered By: Nery Blades on 07-11-2022 Eosinophils (Bld) [#/Vol] 0.4 10*3/uL 0.0-0.45 [facility] Eosinophils/100 WBC Auto (Bl d)Ordered By: Nery Blades on 07-11-2022 Eosinophils/100 WBC (Bld) 4.2 % . [facility] Erythrocyte distribution wid th Auto (RBC) [Ratio]Ordered By: Nery Blades on 07-11-2022 Erythrocyte distribution width (RBC) [Ratio] 14.9 % 11.9-15.3 [facility] Hematocrit Auto (Bld) [Volum e fraction]Ordered By: Nery Blades on 07-11-2022 Hematocrit (Bld) [Volume fraction] 36.6 % 34.0-46.4 [facility] Hemoglobin [Mass/volume] in BloodOrdered By: Nery Blades on 07-11-2022 Hemoglobin (Bld) [Mass/Vol] 12.3 g/dL 11.8-15.4 [facility] Leukocytes [#/volume] correc ketan for nucleated erythrocytes in Blood by Automated counOrdered By: Nery Blades on 07-11-2022 WBC corrected for nucl RBC Auto (Bld) [#/Vol] 10.0 10*3/uL 3.8-11.6 [facility] Lymphocytes Auto (Bld) [#/Vo l]Ordered By: Nery Blades on 07-11-2022 Lymphocytes (Bld) [#/Vol] 1.9 10*3/uL 1.00-4.8 [facility] Lymphocytes/100 WBC Auto (Bl d)Ordered By: Nery Blades on 07-11-2022 Lymphocytes/100 WBC (Bld) 18.7 % . [facility] MCH Auto (RBC) [Entitic mass ]Ordered By: Nery Blades on 07-11-2022 MCH (RBC) [Entitic mass] 28.5 pg 24.7-34.3 [facility] MCHC Auto (RBC) [Mass/Vol]Or dered By: Nery Blades on 07-11-2022 MCHC (RBC) [Mass/Vol] 33.7 g/dL 32.0-35.0 [facility] MCV Auto (RBC) [Entitic vol] Ordered By: Nery Blades on 07-11-2022 MCV (RBC) [Entitic vol] 84.6 fL 80-100 [facility] Monocytes Auto (Bld) [#/Vol] Ordered By: Nery Blades on 07-11-2022 Monocytes (Bld) [#/Vol] 0.7 10*3/uL 0.0-0.8 [facility] Monocytes/100 WBC Auto (Bld) Ordered By: Nery Blades on 07-11-2022 Monocytes/100 WBC (Bld) 6.8 % . [facility] Neutrophils Auto (Bld) [#/Vo l]Ordered By: Nery Blades on 07-11-2022 Neutrophils (Bld) [#/Vol] 7.0 10*3/uL 1.8-7.7 [facility] Neutrophils/100 WBC Auto (Bl d)Ordered By: Nery Blades on 07-11-2022 Neutrophils/100 WBC (Bld) 69.9 % . [facility] Nucleated erythrocytes [Pres ence] in Blood by Automated countOrdered By: Nery Blades on 07-11-2022 Nucleated RBC Auto Ql (Bld) 0.1 /100{WBC} 0-0.5 [facility] Platelet mean volume Auto (B ld) [Entitic vol]Ordered By: Nery Blades on 07-11-2022 Platelet mean volume (Bld) [Entitic vol] 7.2 fL 6.3-10.7 [facility] Platelets Auto (Bld) [#/Vol] Ordered By: Nery Blades on 07-11-2022 Platelets (Bld) [#/Vol] 334 10*3/uL 150-450 [facility] RBC Auto (Bld) [#/Vol]Ordere d By: Nery Blades on 07-11-2022 RBC (Bld) [#/Vol] 4.33 10*6/uL 3.60-5.00 [facility] WBC Auto (Bld) [#/Vol]Ordere d By: Nery Blades on 07-11-2022 WBC (Bld) [#/Vol] 10.0 10*3/uL 3.8-11.6 [facility] Basic Metabolic Panelon 06-14 Anion gap [Moles/Vol] 13.3 mmol/L Normal 6.0-15.0 [facility] Comment on above: Performed By: #### B MP, CBC #### [facility] [address] Calcium [Mass/Vol] 8.4 mg/dL Low 8.6-10.3 [facility] Comment on above: Performed By: #### B MP, CBC #### [facility] [address] Chloride [Moles/Vol] 107 mmol/L Normal 98-107 [facility] Comment on above: Performed By: #### B MP, CBC #### [facility] [address] CO2 [Moles/Vol] 21.9 mmol/L Normal 21.0-31.0 [facility] Comment on above: Performed By: #### B MP, CBC #### [facility] [address] [place] [address] [place] Creatinine [Mass/Vol] 0.62 mg/dL Normal 0.60-1.20 [facility] Comment on above: Performed By: #### B MP, CBC #### [facility] [address] [place] [address] [place] Creatinine Clr Calc Pharmacy 148.42 Normal [facility] Comment on above: Result Comment: PERF ORMED BY: [place] [address] PATHOLOGIST CARVING MACHINE OPERATOR ZOE GUEVARA M.D. Performed By: #### B MP, CBC #### [facility] [address] [place] [address] [place] GFR/1.73 sq M.predicted MDRD (S/P/Bld) [Vol rate/Area] mL/min/{1.73_m2} Normal [facility] Comment on above: Performed By: #### B MP, CBC #### [facility] [address] Glucose [Mass/Vol] 133 mg/dL High 74-109 [facility] Comment on above: Result Comment: [place] Glucose Reference Range is dependent on time and content of last meal. Glucose of more than 200 mg/dL in a nonstressed, ambulatory subject supports the diagnosis of Diabetes Mellitus. ADA recommended reference range Performed By: #### B MP, CBC #### [address] Potassium [Moles/Vol] 4.2 mmol/L Normal 3.5-5.1 [facility] Comment on above: Performed By: #### B MP, CBC #### [place] [address] [place] Sodium [Moles/Vol] 138 mmol/L Normal 136-145 [facility] Comment on above: Performed By: #### B MP, CBC #### [address] Urea nitrogen [Mass/Vol] 21 mg/dL Normal 7-25 [facility] Comment on above: Performed By: #### B MP, CBC #### [place] [address] [place] Basophils Auto (Bld) [#/Vol] Ordered By: Nery Blades on 07-04-2022 Basophils (Bld) [#/Vol] 0.0 10*3/uL 0.0-0.2 [facility] Basophils/100 WBC Auto (Bld) Ordered By: Nery Blades on 07-04-2022 Basophils/100 WBC (Bld) 0.2 % . [facility] Calcium [Mass/volume] in Ser um or PlasmaOrdered By: Nery Blades on 07-04-2022 Calcium [Mass/Vol] 8.4 mg/dL 8.6-10.3 [facility] Carbon dioxide, total [Moles /volume] in Serum or PlasmaOrdered By: Nery Ambrosios on 07-04-2022 CO2 [Moles/Vol] 21.9 mmol/L 21.0-31.0 [facility] Chloride [Moles/volume] in S monika or PlasmaOrdered By: Nery Blades on 07-04-2022 Chloride [Moles/Vol] 107 mmol/L 98-107 [facility] Complete Blood Count Auto Di ffon 07-04-2022 Basophils (Bld) [#/Vol] 0.0 10*3/uL Normal 0.0-0.2 [facility] Comment on above: Result Comment: PERF ORMED BY: [place] [address] PATHOLOGIST CARVING MACHINE OPERATOR ZOE GUEVARA M.D. Performed By: #### B MP, CBC #### [address] Basophils/100 WBC (Bld) 0.2 % Normal . [facility] Comment on above: Performed By: #### B MP, CBC #### [address] Eosinophils (Bld) [#/Vol] 0.0 10*3/uL Normal 0.0-0.45 [facility] Comment on above: Performed By: #### B MP, CBC #### [address] Eosinophils/100 WBC (Bld) 0.0 % Normal . [facility] Comment on above: Performed By: #### B MP, CBC #### [address] Erythrocyte distribution width (RBC) [Ratio] 15.2 % Normal 11.9-15.3 [facility] Comment on above: Performed By: #### B MP, CBC #### [address] Hematocrit (Bld) [Volume fraction] 35.3 % Normal 34.0-46.4 [facility] Comment on above: Performed By: #### B MP, CBC #### [address] Hemoglobin (Bld) [Mass/Vol] 12.0 g/dL Normal 11.8-15.4 [facility] Comment on above: Performed By: #### B MP, CBC #### [address] Lymphocytes (Bld) [#/Vol] 0.6 10*3/uL Low 1.00-4.8 [facility] Comment on above: Performed By: #### B MP, CBC #### [address] Lymphocytes/100 WBC (Bld) 6.3 % Normal . [facility] Comment on above: Performed By: #### B MP, CBC #### [address] MCH (RBC) [Entitic mass] 28.4 pg Normal 24.7-34.3 [facility] Comment on above: Performed By: #### B MP, CBC #### [address] MCV (RBC) [Entitic vol] 83.6 fL Normal 80-100 [facility] Comment on above: Performed By: #### B MP, CBC #### [address] Mean Corpuscular HGB Conc 34.0 g/dL Normal 32.0-35.0 [facility] Comment on above: Performed By: #### B MP, CBC #### [address] Monocytes (Bld) [#/Vol] 0.1 10*3/uL Normal 0.0-0.8 [facility] Comment on above: Performed By: #### B MP, CBC #### [place] [address] [place] Monocytes/100 WBC (Bld) 1.4 % Normal . [facility] Comment on above: Performed By: #### B MP, CBC #### [facility] [address] [place] [address] [place] Neutrophils (Bld) [#/Vol] 9.0 10*3/uL High 1.8-7.7 [facility] Comment on above: Performed By: #### B MP, CBC #### [facility] [address] [place] [address] [place] Neutrophils/100 WBC (Bld) 92.1 % Normal . [facility] Comment on above: Performed By: #### B MP, CBC #### [facility] [address] NRBC% 0.0 /100{WBC} Normal 0-0.5 [facility] Comment on above: Performed By: #### B MP, CBC #### [facility] [address] Platelet mean volume (Bld) [Entitic vol] 7.0 fL Normal 6.3-10.7 [facility] Comment on above: Performed By: #### B MP, CBC #### [facility] [address] [place] [address] [place] Platelets (Bld) [#/Vol] 309 10*3/uL Normal 150-450 [facility] Comment on above: Performed By: #### B MP, CBC #### [facility] [address] [place] [address] [place] RBC (Bld) [#/Vol] 4.23 10*6/uL Normal 3.60-5.00 [facility] Comment on above: Performed By: #### B MP, CBC #### [facility] [address] [place] [address] [place] WBC (Bld) [#/Vol] 9.8 10*3/uL Normal 3.8-11.6 [facility] Comment on above: Performed By: #### B MP, CBC #### [facility] [address] [place] [address] [place] Creatinine [Mass/volume] in Serum or PlasmaOrdered By: Nery Rush on 07-04-2022 Creatinine [Mass/Vol] 0.62 mg/dL 0.60-1.20 [facility] Eosinophils Auto (Bld) [#/Vo l]Ordered By: Nery Rush on 07-04-2022 Eosinophils (Bld) [#/Vol] 0.0 10*3/uL 0.0-0.45 [facility] Eosinophils/100 WBC Auto (Bl d)Ordered By: Nery Rush on 07-04-2022 Eosinophils/100 WBC (Bld) 0.0 % . [facility] Erythrocyte distribution wid th Auto (RBC) [Ratio]Ordered By: Nery Rush on 07-04-2022 Erythrocyte distribution width (RBC) [Ratio] 15.2 % 11.9-15.3 [facility] Glucose [Mass/volume] in Ser um or PlasmaOrdered By: Nery Rush on 07-04-2022 Glucose [Mass/Vol] 133 mg/dL 74-109 [facility] Comment on above: ADA recommended refe rence rangeRandom Glucose Reference Range is dependent on time and content of last meal. Glucose of more than 200 mg/dL in a nonstressed, ambulatory subject supports the diagnosis of Diabetes Mellitus. Hematocrit Auto (Bld) [Volum e fraction]Ordered By: Nery Rush on 07-04-2022 Hematocrit (Bld) [Volume fraction] 35.3 % 34.0-46.4 [facility] Hemoglobin [Mass/volume] in BloodOrdered By: Nery Rush on 07-04-2022 Hemoglobin (Bld) [Mass/Vol] 12.0 g/dL 11.8-15.4 [facility] Laboratory - Chemistry and C hemistry - challengeOrdered By: Nery Rush on 07-04-2022 GFR/1.73 sq M.predicted MDRD (S/P/Bld) [Vol rate/Area] mL/min/{1.73_m2} [facility] Leukocytes [#/volume] correc ketan for nucleated erythrocytes in Blood by Automated counOrdered By: Nery Rush on 07-04-2022 WBC corrected for nucl RBC Auto (Bld) [#/Vol] 9.8 10*3/uL 3.8-11.6 [facility] Lymphocytes Auto (Bld) [#/Vo l]Ordered By: Nery Blades on 07-04-2022 Lymphocytes (Bld) [#/Vol] 0.6 10*3/uL 1.00-4.8 [facility] Lymphocytes/100 WBC Auto (Bl d)Ordered By: Nery Blades on 07-04-2022 Lymphocytes/100 WBC (Bld) 6.3 % . [facility] MCH Auto (RBC) [Entitic mass ]Ordered By: Nery Blades on 07-04-2022 MCH (RBC) [Entitic mass] 28.4 pg 24.7-34.3 [facility] MCHC Auto (RBC) [Mass/Vol]Or dered By: Nery Blades on 07-04-2022 MCHC (RBC) [Mass/Vol] 34.0 g/dL 32.0-35.0 [facility] MCV Auto (RBC) [Entitic vol] Ordered By: Nery Blades on 07-04-2022 MCV (RBC) [Entitic vol] 83.6 fL 80-100 [facility] Monocytes Auto (Bld) [#/Vol] Ordered By: Nery Blades on 07-04-2022 Monocytes (Bld) [#/Vol] 0.1 10*3/uL 0.0-0.8 [facility] Monocytes/100 WBC Auto (Bld) Ordered By: Nery Blades on 07-04-2022 Monocytes/100 WBC (Bld) 1.4 % . [facility] Neutrophils Auto (Bld) [#/Vo l]Ordered By: Nery Blades on 07-04-2022 Neutrophils (Bld) [#/Vol] 9.0 10*3/uL 1.8-7.7 [facility] Neutrophils/100 WBC Auto (Bl d)Ordered By: Nery Blades on 07-04-2022 Neutrophils/100 WBC (Bld) 92.1 % . [facility] No Panel InformationOrdered By: Nery Blades on 07-04-2022 Pharmacy Creatinine Clearance (Chem 148.42 [facility] Nucleated erythrocytes [Pres ence] in Blood by Automated countOrdered By: Nery Blades on 07-04-2022 Nucleated RBC Auto Ql (Bld) 0.0 /100{WBC} 0-0.5 [facility] Platelet mean volume Auto (B ld) [Entitic vol]Ordered By: Nery Blades on 07-04-2022 Platelet mean volume (Bld) [Entitic vol] 7.0 fL 6.3-10.7 [facility] Platelets Auto (Bld) [#/Vol] Ordered By: Nery Blades on 07-04-2022 Platelets (Bld) [#/Vol] 309 10*3/uL 150-450 [facility] Potassium [Moles/volume] in Serum or PlasmaOrdered By: Nery Blades on 07-04-2022 Potassium [Moles/Vol] 4.2 mmol/L 3.5-5.1 [facility] RBC Auto (Bld) [#/Vol]Ordere d By: Nery Blades on 07-04-2022 RBC (Bld) [#/Vol] 4.23 10*6/uL 3.60-5.00 [facility] Serum or plasma anion gap de terminationOrdered By: Nery Blades on 07-04-2022 Anion gap [Moles/Vol] 13.3 mmol/L 6.0-15.0 [facility] Sodium [Moles/volume] in Ser um or PlasmaOrdered By: Nery Blades on 07-04-2022 Sodium [Moles/Vol] 138 mmol/L 136-145 [facility] Urea nitrogen [Mass/volume] in Serum or PlasmaOrdered By: Nery Blades on 07-04-2022 Urea nitrogen [Mass/Vol] 21 mg/dL 7-25 [facility] WBC Auto (Bld) [#/Vol]Ordere d By: Nery Blades on 07-04-2022 WBC (Bld) [#/Vol] 9.8 10*3/uL 3.8-11.6 [facility] HCG ( test) IA.rapi d Ql (U)Ordered By: Manny Keene on 07-03-2022 HCG ( test) Ql (U) Negative [facility] HCG,Urineon 07-03-2022 Beta HCG ( test) Ql (U) Negative Normal [facility] Comment on above: Result Comment: PERF ORMED BY: [place] [address] PATHOLOGIST CARVING MACHINE OPERATOR ZOE GUEVARA M.D. Performed By: #### U HCG #### [place] [address] [place] XR lumbar spine 1Von 023 XR lumbar spine 1V [facility] [address] [place] [address] XRay Report Signed Patient: Yi Palomino MR#: [id number] : 1985 Acct:[id number] Age/Sex: 37 / F ADM Date: 07/03/22 Loc: Room: [address] [place] [address] Type: ADM IN Attending Dr: Nery Rush [...] Steven Nicole M.D.07/03/2022 7:09 PM Dictation Location: [place] [address] Transcribed By: [facility] 07/03/221908 Dictated By: Steven Nicole DO 07/03/221907 Signed By: 07/03/221908 Normal [facility] CHEMISTRYOrdered By: SYSTEM SYSTEM on 06-13-2022 Anion gap [Moles/Vol] 14 mmol/L Normal 6 - 16 mEq/L [facility] Calcium [Mass/Vol] 9.0 mg/dL Normal 8.9 - 11. 1 mg/dL [facility] Chloride [Moles/Vol] 103 mmol/L Normal 101 - 1 11 mmol/L [facility] CO2 [Moles/Vol] 22 mmol/L Normal 21 - 31 mmol/L [facility] Creatinine [Mass/Vol] 0.8 mg/dL Normal 0.5 - 1.3 mg/dL [facility] GFR/1.73 sq M.predicted among blacks MDRD (S/P/Bld) [Vol rate/Area] mL/min/1.73 m2 Normal >=59mL/min/1 .73 m2 FT Chem S GFR/1.73 sq M.predicted among non-blacks MDRD (S/P/Bld) [Vol rate/Area] mL/min/1.73 m2 Normal >=59mL/min/1 .73 m2 [facility] Chem S Glucose [Mass/Vol] 90 mg/dL Normal 55 - 199 mg/dL [facility] Potassium [Moles/Vol] 4.2 mmol/L Normal 3.5 - 5.3 mmol/L [facility] Sodium [Moles/Vol] 135 mmol/L Normal 135 - 145 mmol/L [facility] Urea nitrogen [Mass/Vol] 21 mg/dL Normal 5 - 21 mg/dL [facility] Urea nitrogen/Creatinine [Mass ratio] 26 mg/mg High 10 - 20 [facility] HEMATOLOGYOrdered By: SYSTEM SYSTEM on 06-13-2022 Basophils/100 [...] 9.2 E9/L High 2.0 - 7.5 E9/L [facility] HemeAutoSS HEMATOLOGYOrdered By: Adria Hernandez on 06-13-2022 Erythrocyte distribution width (RBC) [Ratio] 14.9 % High 10.9 - 14.2 % [facility]eAutoSS Hematocrit (Bld) [Volume fraction] 40.2 % Normal 34.0 - 46.0 % [facility]eAutoSS Hemoglobin (Bld) [Mass/Vol] 13.6 g/dL Normal 12.0 - 16.0 gm/dL [facility]eAutoSS MCH (RBC) [Entitic mass] 27.6 pg Normal 27.0 - 34.0 pg [facility]eAuto[facility] MCHC (RBC) [Mass/Vol] 33.8 g/dL Normal 31.4 - 36.0 gm/dL [facility] HemeAutoSS MCV (RBC) [Entitic vol] 81.7 fL Normal 80.0 - 100.0 fL [facility]eAuto[facility] Platelet mean volume (Bld) [Entitic vol] 7.2 fL Normal 6.4 - 10.8 fL [facility]eAutoSS Platelets (Bld) [#/Vol] 413.0 E9/L Normal 150. 0 - 500.0 E9/L [facility]eAuto[facility] RBC (Bld) [#/Vol] 4.9 E12/L Normal 4.3 - 5.9 E12/L [facility]eAuto[facility] WBC corrected for nucl RBC Auto (Bld) [#/Vol] 12.7 E9/L High 4.0 - 11.0 E9/L [facility] HemeAuto[facility] SEROLOGYOrdered By: Jocelyn carrillo on 06-13-2022 Beta hCG Ql Negative (06/13/22 8:37 AM) Normal [facility] Man Sero URINALYSISOrdered By: Jocelyn Bazzi on 06-13-2022 Bacteria LM Ql (Urine sed) 3+ /HPF Invalid Interpretation Code Trace/HPF [facility] UA Auto SS Bilirubin Ql (U) Negative [...] AM) Normal Negative [facility] UA Auto SS [place].plasma/[place]. RBC (Bld) [Mass ratio] 4-20 /HPF Normal 0-3/HPF [facility] UA A uto SS Nitrite Ql (U) [...] [facility] UA Auto SS Urobilinogen Qn (U) 0.5802202 {Donna'U}/dL Normal 0.0 - 1.0 EU/dL [facility] UA Auto SS WBC Auto Ql (U) 1+ *ABN* (06/13/22 10:37 AM) Invalid Interpretation Code Negative [facility] UA Auto SS WBC LM.HPF (Urine sed) [#/Area] /[HPF] Invalid Interpretation Code 0-5/HPF [facility] UA Auto SS XR Spine Lumbar Complete w/F vi AND [place] 06-08-2022 XR Spine Lumbar Complete w/Flex AND [...] by SAPPHIRE VILLANUEVA on 06/09/2022 1321 Normal [facility] Institutional Nutrition Consultant COVID Quick Testingon 2020 Result Negative [facility] Other Vital Signs Date Time Vital Sign Value Performing Clinician Facility 05-27-2024 10:31-0500 Blood Pressure Location Erin Lue [facility] 05-27-2024 10:31-0500 Diastolic blood pressure 80 mm[Hg] Erin Lue [facility] 05-27-2024 10:31-0500 Heart rate 64 /min Erin Lue [facility] 05-27-2024 10:31-0500 Respiratory rate 18 /min Erin Lue [facility] 05-27-2024 10:31-0500 Systolic blood pressure 135 mm[Hg] Erin Lue [facility] 08-08-2022 11:00-0400 Body height 154.94 cm [facility] [employer] Other [facility] 08-08-2022 11:00-0400 Body mass index (BMI) [Ratio] 47.42 kg/m2 Nery Blades Other [facility] 08-08-2022 11:00-0400 Body weight 113.85 kg Nery Blades Other [facility] 08-08-2022 11:00-0400 Diastolic blood pressure 78 mm[Hg] Nery Blades Other [facility] Other 08-08-2022 11:00-0400 Systolic blood pressure 120 mm[Hg] Nery Blades Other [facility] Other 07-11-2022 11:30-0400 Body height 154.94 cm Nery Blades Other [facility] Other 07-11-2022 11:30-0400 Body mass index (BMI) [Ratio] 47.8 kg/m2 Nery Blades Other [facility] Other 07-11-2022 11:30-0400 Body weight 114.76 kg Nery Blades Other [facility] Other 07-11-2022 11:30-0400 Diastolic blood pressure 80 mm[Hg] Nery Blades Other [facility] Other 07-11-2022 11:30-0400 Systolic blood pressure 130 mm[Hg] Nery Blades Other [facility] Other 07-04-2022 11:53-0400 Body temperature 97.9 [degF] MD Etta Mario Work Phone: [facility] 07-04-2022 11:53-0400 Diastolic blood pressure 69 mm[Hg] MD Etta Mario Work Phone: [facility] 07-04-2022 11:53-0400 Heart rate 75 /min MD Etta Mario Work Phone: [facility] 07-04-2022 11:53-0400 Respiratory rate 16 /min MD Etta Mario Work Phone: [facility] 07-04-2022 11:53-0400 SaO2% (BldA) [Mass fraction] 95 % MD Etta Mario Work Phone: [facility] 07-04-2022 11:53-0400 Systolic blood pressure 111 mm[Hg] MD Etta Mario Work Phone: [facility] 07-04-2022 06:00-0400 Body weight 113.8 kg MD Etta Mario Work Phone: [facility] 07-03-2022 19:25-0400 Inhaled oxygen flow rate 10 L/min MD Etta Mario Work Phone: [facility] 07-03-2022 16:00-0400 Body height 154.94 cm MD Etta Mario Work Phone: [facility] 07-03-2022 16:00-0400 Body mass index (BMI) [Ratio] 48.2 kg/m2 MD Etta Mario Work Phone: [facility] 06-29-2022 12:30-0400 Body height 154.94 cm Nery Blades Other [facility] Other 06-29-2022 12:30-0400 Body mass index (BMI) [Ratio] 47.8 kg/m2 Nery Blades Other [facility] Other 06-29-2022 12:30-0400 Body weight 114.76 kg Nery Blades Other [facility] Other 06-13-2022 10:55-0500 Diastolic blood pressure 89 mm[Hg] Sebastien Roman [facility] 06-13-2022 10:55-0500 Heart rate 66 /min Sebastien Roman [facility] 06-13-2022 10:55-0500 Respiratory rate 18 /min Sebastien Roman [facility] 06-13-2022 10:55-0500 SaO2% (BldA) [Mass fraction] 98 % Sebastien Roman [facility] 06-13-2022 10:55-0500 Systolic blood pressure 136 mm[Hg] Sebastien Roman [facility] 06-13-2022 10:19-0500 Diastolic blood pressure 76 mm[Hg] Sebastien Owens [facility] 06-13-2022 10:19-0500 Heart rate 67 /min Sebastien Roman [facility] 06-13-2022 10:19-0500 Mean blood pressure 95 mm[Hg] Sebastien Roman [facility] 06-13-2022 10:19-0500 Respiratory rate 20 /min Sebastien Roman [facility] 06-13-2022 10:19-0500 SaO2% (BldA) [Mass fraction] 100 % Sebastien Roman [facility] 06-13-2022 10:19-0500 Systolic blood pressure 132 mm[Hg] Sebastien Roman [facility] 06-13-2022 08:18-0500 Body temperature 98.42 [degF] Sebastien Owens [facility] 06-13-2022 08:18-0500 Diastolic blood pressure 57 mm[Hg] Sebastien Owens [facility] 06-13-2022 08:18-0500 Heart rate 78 /min Sebastien Owens [facility] 06-13-2022 08:18-0500 Respiratory rate 18 /min Sebastien Owens [facility] 06-13-2022 08:18-0500 SaO2% (BldA) [Mass fraction] 100 % Sebastien Owens [facility] 06-13-2022 08:18-0500 Systolic blood pressure 117 mm[Hg] Sebastien Owens [facility] 01-12-2021 15:45-0400 Body height 154.94 cm Nalini Ramachuyy Other [facility] Other 01-12-2021 15:45-0400 Body temperature 97.9 [degF] Nalini [employer] Other [facility] Other 01-12-2021 15:45-0400 SaO2% (BldA) [Mass fraction] 98 % Nalini [employer] Other [facility] Other Encounters Encounter Date Encounter Type Care Provider Facility Start: 05-27-2024 End: 05-27-2024 Clinisync Result Encounter Generic External Data Provider [facility] External Department Unsolicited Start: 05-27-2024 End: 05-27-2024 Clinisync Result Encounter Generic External Data Provider [facility] External Department Unsolicited Start: 05-27-2024 End: 05-27-2024 ambulatory Erin Chavez Facility:[id number] Start: 05-27-2024 End: 05-27-2024 ambulatory Erin Chavez Facility:[facility] Start: 05-27-2024 End: 05-27-2024 Patient encounter procedure Erin Chavez [facility] Start: 05-26-2024 ambulatory Erin Chavez Facility:[facility] Start: 05-25-2024 End: 05-25-2024 Telephone encounter Yi Irving DINKEY OPERATOR Work Phone: [facility] Start: 05-23-2024 End: 05-25-2024 Chart abstracting Glo Antoine MD Work Phone: [facility] Start: 05-22-2024 End: 05-27-2024 Clinisync Result Encounter Generic External Data Provider [facility] External Department Unsolicited Start: 05-22-2024 End: 05-27-2024 Clinisync Result Encounter Generic External Data Provider [facility] External Department Unsolicited Start: 07-04-2023 End: 07-04-2023 ambulatory RASHAAD BURCH Not Available Start: 06-01-2023 End: 06-01-2023 ambulatory ROSE GREEN Not Available Start: 03-12-2023 End: 03-12-2023 ambulatory YI BRAEDEN Not Available Start: 08-08-2022 End: 08-08-2022 ambulatory Nery Blades Other [facility] Other Start: 08-08-2022 Postop follow up vis it related to original px Nery Blades [facility] Start: 08-03-2022 End: 08-03-2022 ambulatory Nery Blades Other [facility] Other Start: 08-03-2022 Telephone encounter Nery Blades [facility] Start: 07-30-2022 End: 07-30-2022 ambulatory Nery Blades Other [facility] Other Start: 07-30-2022 Telephone encounter Nery Blades [facility] Start: 07-26-2022 End: 07-26-2022 ambulatory Nery Blades Other [facility] Other Start: 07-26-2022 Telephone encounter Nery Blades [facility] Start: 07-11-2022 Postop follow up vis it related to original px Nery Blades [facility] Start: 07-11-2022 End: 07-11-2022 ambulatory MD Etta Mario Work Phone: [facility] Work Phone: Start: 07-11-2022 End: 07-11-2022 Patient encounter procedure MD Etta Mario Work Phone: [facility] Work Phone: Start: 07-07-2022 End: 07-07-2022 ambulatory Nery Blades Other [facility] Other Start: 07-07-2022 Telephone encounter Nery Blades [facility] Start: 07-05-2022 End: 07-05-2022 ambulatory Drake Sánchez Other [employer] Other Start: 07-05-2022 Telephone encounter Drake Sánchez [facility] [employer] Start: 07-03-2022 End: 07-04-2022 Evaluation and management of inpatient Etta Mario Facility:[facility] Start: 07-03-2022 Admission to same day surgery center Nery Blades [facility] Start: 07-03-2022 End: 07-03-2022 ambulatory Nery Blades Other [employer] Other Start: 07-03-2022 Patient encounter procedure Nery Blades [facility] Start: 07-03-2022 End: 07-04-2022 Evaluation and management of inpatient MD Etta Mario Work Phone: [facility] Work Phone: Start: 06-29-2022 End: 06-29-2022 ambulatory Nery Blades Other [facility] [employer] Other Start: 06-29-2022 Office outpatient ne w 30 minutes Nery Rush [facility] Start: 06-13-2022 End: 06-13-2022 Emergency department patient visit Sebastien Owens [facility] Start: 06-11-2022 End: 06-11-[address] GLO ANTOINE Facility:[facility] Start: 01-12-2021 Office outpatient vi sit 15 minutes Nalini Ginty [facility] Procedures Date Procedure Procedure Detail Performing Clinician Start: 05-27-2024 XR URETHROGRAM RETROGRADE Generic External Data Provider Start: 05-27-2024 HCG QUALITATIVE* Generi c External Data Provider Start: 05-22-2024 Bacteria identified in Urine by Culture Generic External Data Provider Start: 07-03-2022 X-ray of lumbar spin e, single view MD Etta Mario Work Phone: Start: 07-03-2022 Excision of lumbar intervertebral disc MD Etta Mario Work Phone: Appendectomy Erin Lue Cholecystectomy Erin Lue Excision of lumbar intervertebral disc Erin Lue Plan of Treatment Date Care Activity Detail Author Start: 03-13-2027 Screening for malignant neoplasm of cervix [facility] Start: 12-15-2023 Influenza vaccination Influenza Vaccine (#1) [facility] Start: 07-04-2022 [facility] Start: 07-03-2022 Hospital admission [facility] Start: 07-03-2022 Excision of Lumbosacral Joint, Open Approach Excision of Lumbosacral Joint, Open Approach [facility] Start: 2007 Screening for malignant neoplasm of cervix Pap Smear [facility] Bacteria identified in Urine by Culture URINE CULTURE, ROUTINE Lab Routine 05/22/2024 10:40 PM EST [facility] Patient Education Radiculopathy (DC) [facility] Work Phone: Patient referral [facility] Work Phone: Immunizations Immunization Date Immunization Notes Care Provider Matty nelson 05-18-2019 tetanus toxoid, redu ernie diphtheria toxoid, and acellular pertussis vaccine, adsorbed Glo Antoine MD Work Phone: [facility] Payers Date Payer Category Payer [place] [employer] [facility] BCBS [id number] 2023 Unknown [id number] 2022 Self-pay 1985 Unknown [id number] 1986 Unknown [id number] [id number] 1986 Unknown [id number] [id number] 1986 Unknown [id number] [id number] 1986 Unknown [id number] 1986 Unknown [id number] 1986 Unknown [id number] 1958 [employer] Blue Shield [id number] Unknown [id number] Unknown [id number] Unknown [id number] Social History Date Type Detail Facility Unknown if ever smoked [facility] Start: 09-26-2022 End: 10-23-2022 Sex Assigned At [facility] Tobacco [facility] Comment on above: denies Tobacco smoking status No Smokin g Status Entered [facility] Start: 07-03-2022 End: 05-27-2024 Tobacco smoking status NHIS Never smoked tobacco (finding) [facility] Comment on above: denies Start: 1985 Sex Assigned At Female F [facility] Start: 09-25-2022 Tobacco use and exposure Smokeless tobacco non-user [facility] Start: 07-04-2023 Alcoholic beverage intake Ex-drinker (finding) [facility] Start: 09-26-2022 End: 10-23-2022 History of Social function [facility] Within the last year , have you been afraid of your partner or ex-partner? No [facility] How often do you attend moravian or bahai services? Patient declined [facility] Comment on above: denies Are you now , , , , [...] /State Functional Status Date Assessment Result Facility 05-27-2024 Functional Status N/A [facility] 07-04-2022 Functional status Patient at Baseline [facility] Work Phone: 06-13-2022 Functional Status N/A [facility] Mental Status Date Assessment Result Facility 07-04-2022 Cognitive function Cognitive Sta tus Patient at Baseline [facility] Work Phone: Clinical Notes 01-12-2021 to 05-27-2024 Telephone Encounter - Yi Irving NP - 05/25/2024 1:45 PM ESTTelephone Encounter - Yi Irving NP - 05/25/2024 1:45 PM EST Note Date & Type Note Facility 05-27-2024 Hospital Discharg e instructions Patient Education 05/27/2024 11:29:15 Laser Therapy for Kidney Stones, Care After Laser Therapy for Kidney Stones, Care After After laser therapy for kidney stones, it is common to have: Pain. A burning feeling when you pee (urinate). Small amounts of blood in your pee (urine). A need to pee a lot. Parts of the kidney stone in your pee. Mild discomfort in your back when you pee. You may have this if you had a small mesh tube (stent) placed during the procedure. Follow these instructions at home: Medicines Take wvks-uvz-wnhcjhw and prescription medicines only as told by your health care provider. If you were prescribed antibiotics, take them as told by your provider. Do not stop using the antibiotic even if you start to feel better. Ask your provider if the medicine prescribed to you: ?Requires you to avoid driving or using machinery. ?Can cause constipation. You may need to take these actions to prevent or treat constipation: ?Drink enough fluid to keep your pee pale yellow. ?Take nvwq-yyr-itotaej or prescription medicines. ?Eat foods that are high in fiber, such as beans, whole grains, and fresh fruits and vegetables. ?Limit foods that are high in fat and processed sugars, such as fried or sweet foods. Activity If you were given a sedative during the procedure, it can affect you for several hours. Do not drive or operate machinery until your provider says that it is safe. Return to your normal activities as told by your provider. Ask your provider what activities are safe for you. General instructions Your provider may recommend that you drink a lot of water for a few hours after your procedure. If you have heart or kidney disease, ask your provider how much you should drink. You may be asked to strain your pee to collect any stone pieces that you pass. Your provider may have these pieces tested. Do not take baths, swim, or use a hot tub until your provider approves. Ask your provider if you may take warm baths to soothe the burning. Keep all follow-up visits. If you have a stent, you will need to go back to your provider to have it removed. Your provider may give you more instructions. Make sure you know what you can and cannot do. Contact a health care provider if: You have pain or a burning feeling that lasts for more than 2 days. You feel nauseous. You vomit more and more often. You have trouble peeing. You have pain that gets worse or does not get better with medicine. You have a fever or shaking chills. Get help right away if: You cannot pee, even when your bladder feels full. You faint. You have chest pain, shortness of breath, or cough up blood. You have: ?Bright red blood or blood clots in your pee. ?Severe pain or discomfort. ?Pain in your abdomen. ?Swelling in your legs. These symptoms may be an emergency. Get help right away. Call 911. Do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
[2024-06-09 02:30] VITALS: BP 128/63; PULSE 73; TEMP 37; O2SAT 99; BMI 51.0
--- NOTE | 2024-06-09 02:36 | ED_ITS ---
HPI - Female Genitourinary General Chief complaint: Urogenital-Female Stated complaint: FLANK PAIN, POST SURGERY Time Seen by Provider: 06/09/24 02:18 Source: patient Mode of arrival: ambulance History of Present Illness HPI Narrative: This 39-year-old female presents for evaluation of acute onset of right flank pain with nausea. The patient was recently treated with a ureteral stent for a large right sided UVJ kidney stone. The stent was removed yesterday morning. She states she was feeling fine after that. She has been on oral antibiotics and pain medications. She states she woke up around midnight with severe pain in the flank. She is nauseated but has not vomited. She has not had a fever. Related Data Previous Rx's ?Medication ?Instructions ?Recorded cephalexin 500 mg capsule 500 mg PO QID 10 days #40 caps 05/23/24 hydrocodone 5 mg-acetaminophen 325 1 tab PO Q6H PRN pain 5 days #20 05/23/24 mg tablet tabs tamsulosin 0.4 mg capsule (Flomax) 0.4 mg PO DAILY #7 caps 05/23/24 ciprofloxacin HCl 500 mg tablet 500 mg PO Q12H Start morning of 05/27/24 (Cipro) stent removal #2 tabs oxybutynin chloride 5 mg tablet 5 mg PO Q8H PRN bladder spasms, 05/27/24 stent pain #60 tabs Allergies Allergy/AdvReac Type Severity Reaction Status Date / Time sulfamethoxazole (From Allergy Mild Hives Verified 06/09/24 02:34 Bactrim) trimethoprim (From Bactrim) Allergy Mild Hives Verified 06/09/24 02:34 Review of Systems ROS Status of ROS 10 or more systems reviewed and unremark able except as noted in history and below [facility] Medical History (Updated 06/09/24 @ 06:15 by Ju Foreman MD) Arthritis ?M19.90 - Unspecified osteoarthritis, unspecified site (ICD-10) Anemia ?D64.9 - Anemia, unspecified (ICD-10) Kidney stone ?N20.0 - Calculus of kidney (ICD-10) Surgical History (Updated 05/27/24 @ 12:08 by Bernadette Cruz) History of left oophorectomy ?Z90.721 - Acquired absence of ovaries, unilateral (ICD-10) History of back surgery ?Z98.890 - Other specified postprocedural states (ICD-10) History of cholecystectomy ?Z90.49 - Acquired absence of other specified parts of digestive tract (ICD- 10) History of appendectomy ?Z90.49 - Acquired absence of other specified parts of digestive tract (ICD- 10) Family History (Updated 05/27/24 @ 12:16 by Bernadette Cruz) Mother Heart disease Social History (Updated 05/27/24 @ 12:17 by Bernadette Cruz) Within the past year, how often did you have a drink containing alcohol: never Score interpretation: A score less than 3 is consistent with normal alcohol consumption. 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 Highest level of school completed/degree received: high school graduate Little interest or pleasure in doing things: not at all Feeling down, depressed, or hopeless: not at all Exam Narrative Exam Narrative: Vital signs and Nursing Notes reviewed: General: Awake, alert, oriented, anxious overweight female, no respiratory distress HEENT: Normocephalic atraumatic, mucous membranes are moist and pink, eyes are clear, normal conjunctiva, vision is grossly intact Chest: Lungs are clear to auscultation with good air entry, there is no wheezing rhonchi or rales appreciated no accessory muscle use, patient is speaking in complete sentences-no chest wall tenderness to palpation CVS: Regular rate and rhythm S1-S2, no murmurs rubs or gallops, pulses are brisk and equal bilaterally ABD: Obese, soft, nondistended, tenderness in the right flank Extremities: Moving all extremities, no lower extremity tenderness or swelling noted, negative Homans' sign, pulses are brisk and equal bilaterally Skin: Normal in appearance without rash,pallor, petechiae or purpura Neuro: No focal deficits Constitutional Vital Signs, click to edit/add: Last Vital Signs Temp 98.1 F 06/09/24 04:38 Pulse 80 06/09/24 04:38 Resp 14 06/09/24 04:38 BP 125/56 06/09/24 04:38 Pulse Ox 97 06/09/24 04:38 O2 Del Method Room Air 06/09/24 04:38 Course Vital Signs Vital signs: Vital Signs Temperature 98.6 F 06/09/24 02:30 Pulse Rate 73 06/09/24 02:30 Respiratory Rate 22 H 06/09/24 02:30 Blood Pressure 128/63 06/09/24 02:30 Pulse Oximetry 99 06/09/24 02:30 Oxygen Delivery Method Room Air 06/09/24 02:30 Temperature 98.1 F 06/09/24 04:38 Pulse Rate 80 06/09/24 04:38 Respiratory Rate 14 06/09/24 04:38 Blood Pressure 125/56 06/09/24 04:38 Pulse Oximetry 97 06/09/24 04:38 Oxygen Delivery Method Room Air 06/09/24 04:38 MDM - Female Genitourinary MDM Narrative Medical decision making narrative: This 39-year-old female with a history of kidney stones who had a stent placed with Dr. Trivedi and then removed yesterday presents for evaluation of right sided flank pain with nausea. She has been taking her pain medication and Keflex. Around midnight she started having severe pain in the right flank. Her brought her to the emergency department. An IV was placed and she was medicated with IV fluids, Zofran, Toradol and Dilaudid. After her CT scan her pain returned. Routine labs are reviewed. She has a normal white count and hemoglobin is stable. Electrolytes are normal. Her urine shows blood but no sign of infection. CT scan of the abdomen pelvis was ordered and shows bilateral nephrolithiasis right greater than left with a 6.3 mm stone in the right renal pelvis. She also has a 1 mm partially obstructing stone in the proximal right ureter with mild right hydronephrosis and mild right perinephric stranding consistent with partial right renal obstruction. She has a small umbilical hernia. No bowel or left renal obstruction. No features of colitis enteritis or retroperitoneal hemorrhage. The results of the CT scan were discussed with her and she was given a copy of her records. My suspicion is that the stone that they see in the proximal right ureter moved after the ureteral stent was removed causing patient's pain. She is now comfortable. She will be transition to oral pain medication prior to discharge. She states she only has 4 Bethel left at home and will be given a prescription for Bethel, Zofran and Flomax. She was encouraged to follow-up closely with Dr. Trivedi and return to the emergency department as needed Medical Records Attestation: I reviewed the patient's medical records. Lab Data Attestation: I reviewed the patient's lab results. Labs: Lab Results 06/09/24 06/09/24 Range/Units 03:42 03:55 WBC 10.1 (4.0-11.0) 10^3/uL RBC 3.54 L (4.20-5.40) 10^6/uL Hgb 10.1 L (12.0-16.0) g/dL Hct 30.1 L (36.0-48.0) % MCV 85.0 (81.0-99.0) fL MCH 28.5 (26.7-34.0) pg MCHC 33.6 (29.9-35.2) g/dL RDW 13.9 (11.0-15.0) % Plt Count 288 (150-450) 10^3/uL MPV 9.3 L (9.5-13.5) fL Neut % (Auto) 72.5 (43.0-75.0) % Lymph % (Auto) 17.6 L (20.5-60.0) % [place] % (Auto) 7.4 (1.7-12.0) % Eos % (Auto) 1.9 (0.9-7.0) % Baso % (Auto) 0.2 (0.2-2.0) % Neut # (Auto) 7.3 H (1.4-6.5) 10^3/uL Lymph # (Auto) 1.8 (1.2-3.8) 10^3/uL [place] # (Auto) 0.7 (0.3-0.8) 10^3/uL Eos # (Auto) 0.2 (0.0-0.7) 10^3/uL Baso # (Auto) 0.0 (0.0-0.1) 10^3/uL Abs Immat Gran (auto) 0.04 H (0.00-0.03) 10^3/uL Imm/Tot Granulo (auto) 0.4 (0.0-0.5) % Sodium 140 (136-145) mmol/L Potassium 4.3 (3.5-5.1) mmol/L Chloride 107 (98-107) mmol/L Carbon Dioxide 25.7 (21.0-32.0) mmol/L Anion Gap 11.6 BUN 19.0 H (7.0-18.0) mg/dL Creatinine 1.00 (0.55-1.02) mg/dL Est GFR ( Amer) >60 (>=60 mL/min/1.73m^2) Est GFR (Non-Af Amer) >60 (>=60 mL/min/1.73m^2) BUN/Creatinine Ratio 19.0 Glucose 112 H (74-106) mg/dL Calcium 8.6 (8.5-10.1) mg/dL Urine Color Lt. yellow (YELLOW) Urine Clarity Clear (CLEAR) Urine pH 5.5 (5.0-9.0) Ur Specific [place] 1.025 (1.005-1.025) Urine Protein Negative (NEG/TRACE) mg/dL Urine Glucose (UA) Negative (NEGATIVE) mg/dL Urine Ketones Negative (NEGATIVE) mg/dL Urine Occult Blood Moderate A (NEGATIVE) Urine Nitrite Negative (NEGATIVE) Urine Bilirubin Negative (NEGATIVE) Urine Urobilinogen 0.2 (0.2-1.0) EU/dL Ur Leukocyte Esterase Negative (NEGATIVE) Urine RBC 2-5 A (0-2) #/HPF Urine WBC 0-2 A (NONE SEEN) #/HPF Ur Squamous Epith Cells Few A (NONE/RARE) #/LPF Urine Crystals None seen (None Seen) #/HPF Urine Bacteria None seen (NONE SEEN) #/HPF Urine Casts None seen (NONE SEEN) #/LPF Urine Mucus None seen (NONE SEEN) Ur Culture Indicated? No Discharge Plan Discharge Chief Complaint: Urogenital-Female Clinical Impression: Kidney stone, Hydronephrosis due to obstruction of ureter Patient Disposition: Home, Self-Care Time of Disposition Decision: 06:15 Condition: Good Prescriptions / Home Meds: No Action hydrocodone-acetaminophen 5-325 mg tablet 1 tab PO Q6H PRN (Reason: pain) 5 Days Qty: 20 0RF tamsulosin [Flomax] 0.4 mg capsule 0.4 mg PO DAILY Qty: 7 0RF cephalexin 500 mg capsule 500 mg PO QID 10 Days Qty: 40 0RF oxybutynin chloride 5 mg tablet 5 mg PO Q8H PRN (Reason: bladder spasms, stent pain) Qty: 60 0RF ciprofloxacin HCl [Cipro] 500 mg tablet 500 mg PO Q12H Qty: 2 0RF Print Language: Croatian Instructions: Kidney Stones (ED), Renal Colic (ED), Hydronephrosis (ED) Referrals: BRUNA ANTOINE [Primary Care Provider] - 1 week Erin Chavez MD [Physician] - As soon as possible
[2024-06-09] MEDS: ONDANSETRON PF 4 MG/2 ML VIAL IV (03:02)
[2024-06-09] MEDS: 0.9 % SODIUM CHLORIDE 1,000 ML 1000 ML IV (03:02)
[2024-06-09] MEDS: KETOROLAC TROMETHAMINE 30 MG/ML VIAL IVP (03:02)
[2024-06-09] MEDS: HYDROMORPHONE HCL 1 MG/ML CARTRIDGE IV ×2 (03:02→04:35)
[2024-06-09 03:52] LABS: Bilirubin Urine NEGATIVE (NEGATIVE); Blood Urine MODERATE (NEGATIVE); Clarity Urine CLEAR (CLEAR); Color Urine LT. YELLOW (YELLOW); Glucose Urine UA NEGATIVE (NEGATIVE); Ketones Urine NEGATIVE (NEGATIVE); Leukocyte Esterase Urine NEGATIVE (NEGATIVE); Nitrite Urine NEGATIVE (NEGATIVE); Protein Urine NEGATIVE (NEG/TRACE); Specific Gravity Urine 1.025 (1.005-1.025); Urobilinogen Urine 0.2 EU/dL (0.2-1.0); pH Urine 5.5 (5.0-9.0)
[2024-06-09 03:59] LABS: Bacteria Urine NONE SEEN #/HPF (NONE SEEN); Cast Seen? NONE SEEN #/LPF (NONE SEEN); Crystals Seen? None Seen #/HPF (None Seen); Mucus Urine NONE SEEN (NONE SEEN); Squamous Epithelial Cell Urine FEW #/LPF (NONE/RARE); Urine Culture Indicated NO; WBC Urine 0-2 #/HPF (NONE SEEN)
--- NOTE | 2024-06-09 04:01 | PC.NURSE ---
Pt did allow technical writer and editor to do a straight stick for labs. Data Consultant was able to obtain with one attempt. pt tolerated this fair.
[2024-06-09 04:08] LABS: Basophils Percent Auto 0.2 % (0.2-2.0); Eosinophils Absolute Auto 0.2 10^3/uL (0.0-0.7); Eosinophils Percent Auto 1.9 % (0.9-7.0); Hematocrit 30.1 % (36.0-48.0); Hemoglobin 10.1 g/dL (12.0-16.0); Immature Granulocytes Abs Auto 0.04 10^3/uL (0.00-0.03); Immature Granulocytes Pct Auto 0.4 % (0.0-0.5); Lymphocytes Absolute Auto 1.8 10^3/uL (1.2-3.8); Lymphocytes Percent Auto 17.6 % (20.5-60.0); Mean Corpuscular HGB Conc 33.6 g/dL (29.9-35.2); Mean Corpuscular Hemoglobin 28.5 pg (26.7-34.0); Mean Platelet Volume 9.3 fL (9.5-13.5); Monocytes Absolute Auto 0.7 10^3/uL (0.3-0.8); Monocytes Percent Auto 7.4 % (1.7-12.0); Neutrophils Absolute Auto 7.3 10^3/uL (1.4-6.5); Neutrophils Percent Auto 72.5 % (43.0-75.0); Platelet Count 288 10^3/uL (150-450); Red Blood Count 3.54 10^6/uL (4.20-5.40); Red Cell Distribution Width 13.9 % (11.0-15.0); White Blood Count 10.1 10^3/uL (4.0-11.0)
[2024-06-09 04:17] LABS: Anion Gap 11.6; Calcium 8.6 mg/dL (8.5-10.1); Carbon Dioxide 25.7 mmol/L (21.0-32.0); Chloride 107 mmol/L (98-107); Estimated GFR (African America >60 (>=60 mL/min/1.73m^2); Estimated GFR (Non-African Ame >60 (>=60 mL/min/1.73m^2); Glucose 112 mg/dL (74-106); Potassium 4.3 mmol/L (3.5-5.1); Sodium 140 mmol/L (136-145)
[2024-06-09 04:38] VITALS: BP 125/56; PULSE 80; TEMP 36.7; O2SAT 97
--- NOTE | 2024-06-09 04:43 | PC.NURSE ---
Pt states the pain has become tolerable --she rates it a 3 down from a 9.
[2024-06-09 06:45] VITALS: BP 114/56; PULSE 79; O2SAT 96
[2024-06-09] MEDS: HYDROCODONE/ACET 5-325 MG TABLET 2 TAB PO (06:57)
== END 2024-06-09 07:02 | disposition home or self-care (01) ==
PROVIDERS: Emergency Provider Emergency Medicine; PCP Family Medicine
DX: N20.0 Calculus of kidney (principal); N20.1 Calculus of ureter; N13.30 Unspecified hydronephrosis; R10.31 Right lower quadrant pain; R11.0 Nausea
CPT/HCPCS: 36415; 74176; 80048; 81001; 85025; 96374; 96375; 96376; 99284; J1171; J1885; J2405

== ENCOUNTER 2024-07-04 11:04 | Outpatient (OUT) | payer BC, SELFPAY ==
--- NOTE | 2024-07-04 | US_ITS ---
The [address] [address] Patient Name: YI HOLLINGSWORTH MRN: [id number] date: 1985 Sex: F Assigned Patient Location: Current Patient Location: Accession/Order Number: [id number] Exam Date: 07/05/2024 10:58 Report Date: 07/05/2024 11:01 At the request of: DONALD MONTEIRO MD Procedure: US renal BI BILATERAL RENAL AND BLADDER ULTRASOUND CLINICAL HISTORY: URETERAL STONE WITH HYDRONEPHROSIS N13.2 COMPARISON: CT abdomen and pelvis 06/09/2024 FINDINGS: Estimation of renal size is approximately 10.6 cm on the right and 5.9 mm on the left. No hydronephrosis. Right nephrolithiasis, largest stone measuring 6 mm. The urinary bladder is partially distended with a volume of 32 ml. No shadowing stone or focal lesion. No significant postvoid residual. Incidental note is made of a right ovarian cyst measuring 4.3 cm. US/US renal BI IMPRESSION: RIGHT NEPHROLITHIASIS. NO HYDRONEPHROSIS TO SUGGEST OBSTRUCTION.. 4.3 CM RIGHT OVARIAN CYST. Impression dictated by: David Cavanaugh Jr., D.O.07/05/2024 11:01 AM Dictation Location: [place] [address] Electronically authenticated by: [id number] Y Date: 07/05/2024 11:01
--- OUTSIDE RECORDS SUMMARY | 2024-07-04 11:06 | XMS_ITS | CCD ---
Author Organization [facility] Care Team Providers Care Development Mechanic Name Role Phone Nalini Live Unavailable NONE, XXXX Primary Care Physician Unavailab DR GLO Quinonez Primary Care Unavailable JARED .SEBASTIEN Consulting Unavailable LYNSEY CERVANTES Attending Unavailable LYNSEY CERVANTES Admitting Unavailable MD Etta Mario Primary Care Provider [phone] [facility], [facility] Beth Espinoza Emergency Provider MD Nery Rush Admit Provider MD Nery Rush Attending Provider Blades, Nery Unavailable Drake Sánchez Unavailable Etta Mario Primary Care Unavailable Blades, Nery Camacho Attending Unavailable Blades, Nery A Admitting Unavailable Etta Mario Primary Care Unavailable Blades, Nery A Attending Unavailable Blades, Nery A Admitting Unavailable Glo Antoine MD Primary Care Provider Yi Irving NP Unavailable GLO ANTOINE Primary Care Physician Erin Chavez Attending Unavailable Erin Chavez Attending Unavailable Erin Chavez Referring Unavailable Erin Chavez Admitting Unavailable Erin Chavez Attending Unavailable Erin Chavez Attending Unavailable Erin Chavez Attending Unavailable YI IRVING Attending Unavailable RASHAAD BURCH Attending Unavailable Allergies Allergy Classification Reported Allergen(s) Allergy Type Date of Onset Reaction(s) Facility (18 sources) Sulfamethoxazole / Trimethoprim; Translations: [sulfamethoxazole-tr imethoprim] Drug Allergy 3 rash, Unknown, Unknown (qualifier value) [facility] Work Phone: (2 sources) Sulfamethoxazole / Trimethoprim; Translations: [Bactrim] Drug Allergy 3 [facility] (3 sources) Sulfamethoxazole; Translations: [sulfamethoxazole] Drug Allergy 3 [facility] (3 sources) Trimethoprim; Translations: [trimethoprim] Drug Allergy 3 [facility] Medications Current Medications Medication Drug Class(es) Dates Sig (Normalized) Sig (Original) Acetaminophen / Hydrocodone (4 sources) Opioid Agonist Start: 05-27-2024 acetaminophen-hydr ocodone [...] q4hr for pain, 12 tab(s), Refill(s) 0, [facility] 1429, 154, cm, 06/13/22 8:29:00 EST, Height/Length Dosing, 115, kg, 06/13/22 8:29:00 EST, Weight Dosing Start Date: 06/13/22 Status: Ordered [id number] 200 actuat albuterol 0.09 mg/actuat metered dose [...] BuSpar Active cephalexin 500 mg oral tablet (3 sources) Cephalosporin Antibacterial Start: 05-27-2024 cephalexin 500 mg, Oral, Refills(s) 0 Start Date: 05/27/24 Status: Ordered Start: 06-13-2022 End: 06-20-2022 take 1 capsule by mouth every twelve hours cephalexin 500 mg Cap 500 mg = 1 cap(s), Oral, q12hr, X 7 day(s), # 14 cap(s), Refills(s) 0, Pharmacy: [facility] 1429, 154, cm, 06/13/22 8:29:00 [...] Active tamsulosin hydrochloride 0.4 mg oral capsule (2 sources) alpha-Adrenergic Von Start: take 0.4 mg by [...] 11-28-2022 11-28-2022 Chronic Calculus of urinary tract (2 sources) Kidney stone 05-27-2024 Episodic Deficiency and other anemia (2 sources) Anemia 05-27-2024 Episodic Osteoarthritis (12 sources) Arthritis of left hip; Translations: [Unilateral primary osteoarthritis, left hip] Onset: 09-25-2022 09-25-2022 Chronic Other diseases of kidney and ureters (2 sources) Urinary tract obstruction; Translations: [Hydronephrosis with renal [...] disc displacement, lumbosacral region] Onset: 07-11-2022 Unclassified (2 sources) Obstructive hydronephrosis 05-27-2024 Urinary tract infections (1 [...] Test Name Value Interpretation Reference Range Facility Inpatient Patient Summaryon 06-08-2024 Inpatient Patient Summary Inpatient Patient Summary [place] [id number] Clinical Summary Person Information Name: YI PALOMINO Age: 39 Years : 1985 Sex: Female PCP: GLO ANTOINE MD Marital Status: Race: White Ethnicity: Non- or Language: Croatian Visit Id: Visit Reason: RIGHT URETERAL STONE WITH HYDRONEPHROSIS Speciality: Acuity: Enc Type: Outpatient Med Service: Surgery Arrival: 06/08/2024 11:08:33 Discharge: Dispo Type: Address: [address] [place] [address] [phone] Provider Notes: Diagnosis: Ureteral stone with hydronephrosis Problems Active Ureteral stone with hydronephrosis Kidney stone Arthritis Anemia Smoking Status: Functional Status: Sensory Deficits: History of Falls: Mobility Assistance Prior to Admission: ADLs: Current Level of Assistance for Self-Care/Mobility : Cognitive Status: Allergies Bactrim (Unknown) Laboratory or Other Results This Visit (last charted value for your 06/08/2024 visit) No Laboratory or Other Results This Visit Measurements: Height: Weight: Blood Pressure: Not Valued / Not Valued BMI: Procedures No Procedures Documented Immunizations No Immunizations Documented This Visit Final Med List: acetaminophen-hydr ocodone cephalexin 500 Milligram By Mouth. tamsulosin 0.4 Milligram By Mouth every day. Care Team Members: Attending Physician: Erin Chavez MD Consulting Physician: Referring Physician: Erin Chavez MD Follow up: With: Address: When: Erin Chavez [address] [place] [address] [phone] Business (1) Comments: Office to schedule follow up in 2-3 months with renal US and metabolic stone workup Patient Education Information: Dietary Guidelines to Help Prevent Kidney Stones; EU - Cystoscopy with Stent Removal Discharge Instructions (CUSTOM) Normal [facility] Main OR Intraoperative Recor don 06-08-2024 Main OR Intraoperative Record Main OR Intraoperative Record IntraOp Document Type FTURO Summary Primary Physician: Erin Chavez MD Finalized Date/Time: 06/08/24 12:09:37 Pt. Name: YI PALOMINO /Sex: 1985 Female Med Rec #: [id number] Physician: Erin Chavez MD Financial #: [id number] Pt. Type: O Room/Bed: / Admit/Disch: 06/08/24 11:08:33 - Institution: Case Times FTURO Entry 1 Patient Times In Room 06/08/24 12:01:00 Out Room 06/08/24 12:10:00 Procedure Times Start 06/08/24 12:03:00 Stop 06/08/24 12:05:00 Anesthesia Times Last Modified By: Maria Luisa Mcgowan Ii 06/08/24 12:05:55 Case Attendance FTURO Entry 1 Entry 2 Entry 3 Case Attendee Scott RIVERA, Adriana Newberry Alfons Ii F Role Performed Surgeon - Primary Scrub - Primary Concrete Bucket Unloader - Primary Time In 06/08/24 12:01:00 06/08/24 12:01:00 06/08/24 12:01:00 Time Out 06/08/24 12:10:00 06/08/24 12:10:00 06/08/24 12:10:00 Procedure CYSTOSCOPY LOCAL WITH CYSTOSCOPY LOCAL WITH CYSTOSCOPY LOCAL WITH STENT REMOVAL(Right) STENT REMOVAL(Right) STENT REMOVAL(Right) Comments Last Modified By: Maria Luisa Mcgowan Ii, Alfons Ii F Letrondo, Alfons Ii F 06/08/24 12:05:56 06/08/24 12:06:16 06/08/24 12:06:16 Surgical Procedures FTURO Entry 1 Procedure Description Procedure CYSTOSCOPY LOCAL WITH Modifiers Right STENT REMOVAL Surgeon Description CYSTO RIGHT STENT REMOVAL Primary Procedure Yes Primary Surgeon Erin Chavez MD Start 06/08/24 12:03:00 Stop 06/08/24 12:05:00 Anesthesia Type Local Surgical Service Urology Wound Class 2 - Clean-Contaminated Last Modified By: Maria Luisa Mcgowan Ii 06/08/24 12:05:57 General Case Data FTURO Pre-Care Text: Classifies surgical wound, implements aseptic technique, initiates traffic control Entry 1 Case Information OR URO 1 FT Case Level None Wound Class 2 - Clean-Contaminated Specialty Urology Preop Diagnosis RIGHT URETERAL STONE Postop Same As Preop Yes WITH HYDRONEPHROSIS Postop Diagnosis RIGHT URETERAL STONE Outcomes Met? Yes WITH HYDRONEPHROSIS Last Modified By: Maria Luisa Mcgowan Ii 06/08/24 12:02:22 Post-Care Text: The patient is free from signs and symptoms of infection EU IntraOp - FTURO Pre-Care Text: Implements protective measures prior to operative or invasive procedure, confirms identity before the operative or invasive procedure, verifies operative procedure, surgical site, and laterality Entry 1 EU Perioperative Protocols Procedure(s) CYSTOSCOPY LOCAL WITH Patient Identity Birthday, ID Band STENT REMOVAL(Right) Verified (select at Check, Patient least 2): Participation Consents / H and P H&P, Surgery/Procedure Operative Site N/A Verified Consent Marking Verified Surgical Site Yes Laterality Verified Yes Verified Procedure Verified Yes Correct Patient Yes Position Verified Availability Equipment, Medication Time Out Scott RIVERA, Erin Calderón, Verified (If Participants Adriana Bullock, Applicable) Maria Luisa Mcgowan Ii Time Out Complete 06/08/24 12:02:00 Allergies Reviewed? Yes Allergies Reviewed Self/Patient With Body Position Frog Legged Prep Area VAGINA Prep Agents Betasept Skin. Condition Intact, [place], Warm, & Description UNCHANGED Dry Additional None Specimens Collected Vitals - EU Blood Pressure 136/71 Pulse 74 bpm Respirations 20 br/min SPO2 99 % I&O - EU Outcomes Met? Yes Last Modified By: Maria Luisa Mcgowan Ii 06/08/24 12:03:40 Post-Care Text: The patient is free from signs and symptoms of injury caused by extraneous objects Sign Out FTURO Entry 1 Before Patient Leaves OR Nurse verbally Yes Nurse verbally Yes confirms with the confirms with the team the name of team that the procedure(s) instrument, sponge, recorded and needle counts are correct (or N/A) Nurse verbally n/a Nurse verbally Yes confirms with the confirms with the team how the team whether there specimen is labeled are any equipment (including patient problems to be name), if applicable addressed Sign Out Complete 06/08/24 12:05:00 Last Modified By: Maria Luisa Mcgowan Ii 06/08/24 12:06:00 Case Comments Finalized By: Maria Luisa Mcgowan Ii Document Signatures Signed By: Maria Luisa Mcgowan Ii Berny 06/08/24 12:06 Maria Luisa Mcgowan Ii F 06/08/24 12:09 Normal [facility] Main OR Preoperative Recordo n 06-08-2024 Main OR Preoperative Record Main OR Preoperative Record Holding Area Document Type FTURO Summary Primary Physician: Erin Chavez MD Finalized Date/Time: 06/08/24 11:55:02 Pt. Name: YI PALOMINO /Sex: 1985 Female Med Rec #: [id number] Physician: Erin Chavez MD Financial #: [id number] Pt. Type: O Room/Bed: / Admit/Disch: 06/08/24 11:08:33 - Institution: Case Times Holding FTURO Pre-Care Text: Verifies consent for planned procedure, identifies individual values and wishes concerning care, includes family members in perioperative teaching Secures patient's records' belongings, and valuables, maintains patient's dignity and privacy, and maintains patient confidentiality Entry 1 In Holding 06/08/24 11:48:00 Outcomes Met? Yes Last Modified By: Maddison Barry LPN 06/08/24 11:48:09 Post-Care Text: The patient participates in decisions affecting his or her perioperative plan of care The patient's right to privacy is maintained Surgery Checklist FTURO Entry 1 Patient Birthday, ID Band Procedure History and Physical, Identification: Check, Patient Verification: Surgical Consent, With Participation Patient NPO after Midnight: n/a Personal Items: Glasses Limitations: up ad nabil Complaints of Pain: No Skin Integrity Intact, [place], Warm, & Dry Vitals - EU Blood Pressure 136/71 Pulse 74 bpm Respirations 18 br/min SPO2 99 % Additional None Specimens Collected Last Modified By: Maddison Barry LPN 06/08/24 11:54:57 Finalized By: Maddison Barry LPN Document Signatures Signed By: Maddison Barry LPN 06/08/24 11:55 Normal [facility] Operative Reporton Operative Report Operative Report Patient: YI PALOMINO Age: 39 years Sex: Female : 1985 Associated Diagnoses: None Author: Erin Chavez MD Procedure Operative Information Details: Date/ Time: 06/08/2024 12:11:00. Pre-Op Dx: Encounter for removal of ureteral stent (SFY77-MB Z46.6, Working, Medical), Foreign body in bladder (PNF28-LJ T19.1XXA, Working, Medical), Ureteral stone with hydronephrosis (KQM98-KT N13.2, Discharge, Medical). Post-Op Dx: Same. Anesthesia Type: Local. Procedure: Local Cystoscopy with Stent Removal. Complications: None. Risks/Benefits/Inf ormed Consent: Surgical risks, benefits, details of the procedure have been explained to the patient, Full informed consent has been obtained. Intraoperative Information Prepped: The patient was placed in supine position (Frogleg), The patient was prepped with the Betadine solution (Hibiclens). Anesthesia: 2% Xylocaine Jelly per urethra. Procedure: Cystoscopy and Right Stent Removal, The flexible Cystoscope was passed in retrograde fashion into the bladder without difficulty, The bladder was viewed in entirety and found to be without tumors or stones, Mild inflammation was seen surrounding the orifice with the stent seen protruding from it, The stent was then grasped and removed in its entirety. Specimens Removed: None. Devices Implanted: None. Postoperative Information Discharge: The patient tolerated the procedure well and was subsequently discharged home, Pt elects to proceed with metabolic stone workup -24 hr urine, serum labs to be obtained in a month -Follow up in 2-3 months with renal US to evaluate for silent obstruction. [facility] Comment on above: Result Comment: Elec tronically Signed By: Erin Chavez MD\.br\Date and Time Signed: 06/08/24 12:13 EST Outpatient Surgery Discharge Instructionon 06-08-2024 Outpatient Surgery Discharge Instruction Outpatient Surgery Discharge Instruction [address] [address] Patient Discharge Instructions PERSON INFORMATION Name: YI PALOMINO Date of : 1985 Current Date: 06/08/2024 12:09:57 PHYSICIANS Admitting Physician: Erin Chavez MD Comment: Discharge Diagnosis: Ureteral stone with hydronephrosis YI PALOMINO has been given the following list of follow-up instructions, prescriptions, and patient education materials: IF UNABLE TO CONTACT YOUR PHYSICIAN AND YOU FEEL IT IS AN EMERGENCY, GO TO THE NEAREST EMERGENCY ROOM OR CALL 911 Follow up: With: Address: When: Erin Chavez [address] [place], [place] [phone] Business (1) Comments: Office to schedule follow up in 2-3 months with renal US and metabolic stone workup Comment: PATIENT EDUCATION INFORMATION Instructions: Dietary Guidelines to Help Prevent Kidney Stones Kidney stones are deposits of minerals and salts that form inside your kidneys. Your risk of developing kidney stones may be greater depending on your diet, your lifestyle, the medicines you take, and whether you have certain medical conditions. Most people can lower their risks of developing kidney stones by following these dietary guidelines. Your dietitian may give you more specific instructions depending on your overall health and the type of kidney stones you tend to develop. What are tips for following this plan? Reading food labels ??? Choose foods with no salt added or low-salt labels. Limit your salt (sodium) intake to less than 1,500 mg a day. ??? Choose foods with calcium for each meal and snack. Try to eat about 300 mg of calcium at each meal. Foods that contain 200?500 mg of calcium a serving include: ? 8 oz (237 mL) of milk, calcium-fortifiedn on-dairy milk, and calcium-fortifiedf ruit juice. Calcium-fortified means that calcium has been added to these drinks. ? 8 oz (237 mL) of kefir, yogurt, and soy yogurt. ? 4 oz (114 g) of tofu. ? 1 oz (28 g) of cheese. ? 1 cup (150 g) of dried figs. ? 1 cup (91 g) of cooked broccoli. ? One 3 oz (85 g) can of sardines or mackerel. Most people need 1,000?1,500 mg of calcium a day. Talk to your dietitian about how much calcium is recommended for you. Shopping ??? Buy plenty of fresh fruits and vegetables. Most people do not need to avoid fruits and vegetables, even if these foods contain nutrients that may contribute to kidney stones. ??? When shopping for convenience foods, choose: ? Whole pieces of fruit. ? Pre-made salads with dressing on the side. ? Low-fat fruit and yogurt smoothies. ??? Avoid buying frozen meals or prepared deli foods. These can be high in sodium. ??? Look for foods with live cultures, such as yogurt and kefir. ??? Choose high-fiber grains, such as whole-wheat breads, oat bran, and wheat cereals. Cooking ??? Do not add salt to food when cooking. Place a salt shaker on the table and allow each person to add their own salt to taste. ??? Use vegetable protein, such as beans, textured vegetable protein (TVP), or tofu, instead of meat in pasta, casseroles, and soups. Meal planning ??? Eat less salt, if told by your dietitian. To do this: ? Avoid eating processed or pre-made food. ? Avoid eating fast food. ??? Eat less animal protein, including cheese, meat, poultry, or fish, if told by your dietitian. To do this: ? Limit the number of times you have meat, poultry, fish, or cheese each week. Eat a diet free of meat at least 2 days a week. ? Eat only one serving each day of meat, poultry, fish, or seafood. ? When you prepare animal proteins, cut pieces into small portion sizes. For most meat and fish, one serving is about the size of the palm of your hand. ??? Eat at least five servings of fresh fruits and vegetables each day. To do this: ? Keep fruits and vegetables on hand for snacks. ? Eat one piece of fruit or a handful of berries with breakfast. ? Have a salad and fruit at lunch. ? Have two kinds of vegetables at dinner. ??? You may be told to limit foods that are high in a substance called oxalate. These include: ? Spinach (cooked), rhubarb, beets, sweet potatoes, and Norwegian chard. ? Peanuts. ? Potato chips, [place] fries, and baked potatoes with skin on. ? Nuts and nut products. ? Chocolate. ??? If you regularly take a diuretic medicine, make sure to eat at least 1 or 2 servings of fruits or vegetables that are high in potassium each day. These include: ? Avocado. ? Banana. ? [place], prune, carrot, or tomato juice. ? Baked potato. ? Cabbage. ? Beans and split peas. Lifestyle ??? Drink enough fluid to keep your urine pale yellow. This is the most important thing you can do. Spread your fluid intake throughout the day. ??? If you drink alcohol: ? Limit how mu (more content not included)... Normal [facility] HCG QUALITATIVE*on 5 TBH , QUAL Negative NEGATIVE [facility] U[facility] Office/Clinic Noteon 05-27-2024 Urology Office/Clinic Note Urology Office/Clinic Note Chief Complaint ER f/u HPI Staff 39yr old female pt here for ER f/u. Pt was seen 05/22/24 for abdominal pain. She had large proximal kidney stone and UTI. She was given IV Rocephin, [place], Flomax, Keflex. CT was done showing UPJ [...] unable to treat stone today Follow-up With (more content not included)... [facility] Comment on above: Result Comment: Elec tronically Signed By: Scott RIVERA, Erin Calderón\.br\Date and Time Signed: 05/27/24 11:36 EST XR URETHROGRAM RETROGRADEon 05-27-[address] [address] XRay Report Signed Patient: YI PALOMINO MR#: [id number] : 1985 Acct:[id number] Age/Sex: 39 / F ADM Date: 05/27/24 Loc: [facility] Attending Dr: Erin Chavez M.D. Ordering Physician: Erin Chavez M.D. Date of Service: 05/27/24 Procedure(s): XR urethrogram retrograde Accession Number(s): [id number] cc: GLO ANTOINE ; Erin Chavez M.D. [address] [address] Patient Name: YI PALOMINO MRN: [id number] date: 1985 Sex: F Assigned Patient Location: [facility] Current Patient Location: [facility] Accession/Order Number: [id number] Exam Date: 05/27/2024 13:45 Report Date: 05/27/2024 [...] By: Darrell Olvera M.D. Signed By: 05/27/24 1552 DD/ 155 TD/TT: Commercial Relief Driver: [facility] Radiology, Radiologist, MD - 05/27/2024 [place] [address] XRay Report Signed Patient: YI PALOMINO MR#: [id number] : 1985 Acct:[id number] Age/Sex: 39 / F ADM Date: 05/27/24 [facility] Attending Dr: Erin Chavez M.D. Ordering Physician: Erin Chavez M.D. Date of Service: 05/27/24 Procedure(s): XR urethrogram retrograde Accession Number(s): [id number] cc: GLO ANTOINE Kathy M.D. [facility] [place] [id number] Patient Name: YI PALOMINO MRN: [facility]:[id number] date: 1985 Sex: F Assigned Patient Location: [facility] Current Patient Location: [facility] Accession/Order Number: [id number] Exam Date: 05/27/2024 13:45 Report Date: 05/27/2024 [...] M.D. Signed By: 05/27/241551 DD/ 49 TD/TT: Commercial Relief Driver: [facility] ipsy Radiology [facility]narrative) [facility] URE[facility] RETROGRADEOrd ered By: Radiologist Radiology on 05-27-2024 [facility] Work Phone: Basophils Auto (Bld) [#/Vol] Ordered By: Nery Rush on 07-11-2022 Basophils (Bld) [#/Vol] 0.0 10*3/uL 0.0-0.2 [facility] Basophils/100 WBC Auto (Bld) Ordered By: Nery Rush on 07-11-2022 Basophils/100 WBC (Bld) 0.4 % . [facility] Complete Blood Count Auto Di ffon 07-11-2022 Basophils (Bld) [#/Vol] 0.0 10*3/uL Normal 0.0-0.2 [facility] Comment on above: Order Comment: PT IS NON FASTING Result Comment: PERF ORMED BY: [place] [address] PATHOLOGIST DATA GOVERNANCE ANALYST ZOE GUEVARA M.D. Performed By: #### C BC #### [facility] [address] [place] [address] Basophils/100 WBC (Bld) 0.4 % Normal . [facility] Comment on above: Order Comment: PT IS NON FASTING Performed By: #### C BC #### [facility] [address] [place] [address] [place] Eosinophils (Bld) [#/Vol] 0.4 10*3/uL Normal 0.0-0.45 [facility] Comment on above: Order Comment: PT IS NON FASTING Performed By: #### C BC #### [facility] [address] [place] [address] [place] Eosinophils/100 WBC (Bld) 4.2 % Normal . [facility] Comment on above: Order Comment: PT IS NON FASTING Performed By: #### C BC #### [address] Erythrocyte distribution width (RBC) [Ratio] 14.9 % Normal 11.9-15.3 [facility] Comment on above: Order Comment: PT IS NON FASTING Performed By: #### C BC #### [address] Hematocrit (Bld) [Volume fraction] 36.6 % Normal 34.0-46.4 [facility] Comment on above: Order Comment: PT IS NON FASTING Performed By: #### C BC #### [address] Hemoglobin (Bld) [Mass/Vol] 12.3 g/dL Normal 11.8-15.4 [facility] Comment on above: Order Comment: PT IS NON FASTING Performed By: #### C BC #### [address] Lymphocytes (Bld) [#/Vol] 1.9 10*3/uL Normal 1.00-4.8 [facility] Comment on above: Order Comment: PT IS NON FASTING Performed By: #### C BC #### [address] Lymphocytes/100 WBC (Bld) 18.7 % Normal . [facility] Comment on above: Order Comment: PT IS NON FASTING Performed By: #### C BC #### [address] MCH (RBC) [Entitic mass] 28.5 pg Normal 24.7-34.3 [facility] Comment on above: Order Comment: PT IS NON FASTING Performed By: #### C BC #### [address] MCV (RBC) [Entitic vol] 84.6 fL Normal 80-100 [facility] Comment on above: Order Comment: PT IS NON FASTING Performed By: #### C BC #### [facility] [address] Mean Corpuscular HGB Conc 33.7 g/dL Normal 32.0-35.0 [facility] Comment on above: Order Comment: PT IS NON FASTING Performed By: #### C BC #### [facility] [address] Monocytes (Bld) [#/Vol] 0.7 10*3/uL Normal 0.0-0.8 [facility] Comment on above: Order Comment: PT IS NON FASTING Performed By: #### C BC #### [facility] [address] Monocytes/100 WBC (Bld) 6.8 % Normal . [facility] Comment on above: Order Comment: PT IS NON FASTING Performed By: #### C BC #### [facility] [address] Neutrophils (Bld) [#/Vol] 7.0 10*3/uL Normal 1.8-7.7 [facility] Comment on above: Order Comment: PT IS NON FASTING Performed By: #### C BC #### [place] [address] [place] Neutrophils/100 WBC (Bld) 69.9 % Normal . [facility] Comment on above: Order Comment: PT IS NON FASTING Performed By: #### C BC #### [facility] [address] [place] [address] [place] NRBC% 0.1 /100{WBC} Normal 0-0.5 [facility] Comment on above: Order Comment: PT IS NON FASTING Performed By: #### C BC #### [facility] [address] Platelet mean volume (Bld) [Entitic vol] 7.2 fL Normal 6.3-10.7 [facility] Comment on above: Order Comment: PT IS NON FASTING Performed By: #### C BC #### [facility] [address] [place] [address] [place] Platelets (Bld) [#/Vol] 334 10*3/uL Normal 150-450 [facility] Comment on above: Order Comment: PT IS NON FASTING Performed By: #### C BC #### [facility] [address] RBC (Bld) [#/Vol] 4.33 10*6/uL Normal 3.60-5.00 [facility] Comment on above: Order Comment: PT IS NON FASTING Performed By: #### C BC #### [facility] [address] WBC (Bld) [#/Vol] 10.0 10*3/uL Normal 3.8-11.6 [facility] Comment on above: Order Comment: PT IS NON FASTING Performed By: #### C BC #### [facility] [address] Eosinophils Auto (Bld) [#/Vo l]Ordered By: Nery Blades on 07-11-2022 Eosinophils (Bld) [#/Vol] 0.4 10*3/uL 0.0-0.45 [facility] Eosinophils/100 WBC Auto (Bl d)Ordered By: Nery Blades on 07-11-2022 Eosinophils/100 WBC (Bld) 4.2 % . [facility] Erythrocyte distribution wid th Auto (RBC) [Ratio]Ordered By: Nery Blades on 07-11-2022 Erythrocyte distribution width (RBC) [Ratio] 14.9 % 11.9-15.3 [facility] Hematocrit Auto (Bld) [Volum e fraction]Ordered By: Nery Blades on 07-11-2022 Hematocrit (Bld) [Volume fraction] 36.6 % 34.0-46.4 [facility] Hemoglobin [Mass/volume] in BloodOrdered By: Nery Blades on 07-11-2022 Hemoglobin (Bld) [Mass/Vol] 12.3 g/dL 11.8-15.4 [facility] Leukocytes [#/volume] correc ketan for nucleated erythrocytes in Blood by Automated counOrdered By: Nery Blades on 03-29-2023 WBC corrected for nucl RBC Auto (Bld) [#/Vol] 10.0 10*3/uL 3.8-11.6 [facility] Lymphocytes Auto (Bld) [#/Vo l]Ordered By: Nery Blades on 07-11-2022 Lymphocytes (Bld) [#/Vol] 1.9 10*3/uL 1.00-4.8 [facility] Lymphocytes/100 WBC Auto (Bl d)Ordered By: Nery Blades on 07-11-2022 Lymphocytes/100 WBC (Bld) 18.7 % . [facility] MCH Auto (RBC) [Entitic mass ]Ordered By: Nery Blades on 07-11-2022 MCH (RBC) [Entitic mass] 28.5 pg 24.7-34.3 [facility] MCHC Auto (RBC) [Mass/Vol]Or dered By: Nery Blades on 07-11-2022 MCHC (RBC) [Mass/Vol] 33.7 g/dL 32.0-35.0 [facility] MCV Auto (RBC) [Entitic vol] Ordered By: Nery Blades on 07-11-2022 MCV (RBC) [Entitic vol] 84.6 fL 80-100 [facility] Monocytes Auto (Bld) [#/Vol] Ordered By: Nery Blades on 07-11-2022 Monocytes (Bld) [#/Vol] 0.7 10*3/uL 0.0-0.8 [facility] Monocytes/100 WBC Auto (Bld) Ordered By: Nery Blades on 07-11-2022 Monocytes/100 WBC (Bld) 6.8 % . [facility] Neutrophils Auto (Bld) [#/Vo l]Ordered By: Nery Blades on 07-11-2022 Neutrophils (Bld) [#/Vol] 7.0 10*3/uL 1.8-7.7 [facility] Neutrophils/100 WBC Auto (Bl d)Ordered By: Nery Blades on 07-11-2022 Neutrophils/100 WBC (Bld) 69.9 % . [facility] Nucleated erythrocytes [Pres ence] in Blood by Automated countOrdered By: Nery Blades on 07-11-2022 Nucleated RBC Auto Ql (Bld) 0.1 /100{WBC} 0-0.5 [facility] Platelet mean volume Auto (B ld) [Entitic vol]Ordered By: Nery Blades on 07-11-2022 Platelet mean volume (Bld) [Entitic vol] 7.2 fL 6.3-10.7 [facility] Platelets Auto (Bld) [#/Vol] Ordered By: Nery Blades on 07-11-2022 Platelets (Bld) [#/Vol] 334 10*3/uL 150-450 [facility] RBC Auto (Bld) [#/Vol]Ordere d By: Nery Blades on 07-11-2022 RBC (Bld) [#/Vol] 4.33 10*6/uL 3.60-5.00 [facility] WBC Auto (Bld) [#/Vol]Ordere d By: Nery Blades on 07-11-2022 WBC (Bld) [#/Vol] 10.0 10*3/uL 3.8-11.6 [facility] Basic Metabolic Panelon 06-14 Anion gap [Moles/Vol] 13.3 mmol/L Normal 6.0-15.0 [facility] Comment on above: Performed By: #### B MP, CBC #### [facility] [address] [place] [address] [place] Calcium [Mass/Vol] 8.4 mg/dL Low 8.6-10.3 [facility] Comment on above: Performed By: #### B MP, CBC #### [facility] [address] [place] [id number] [place] Chloride [Moles/Vol] 107 mmol/L Normal 98-107 [facility] Comment on above: Performed By: #### B MP, CBC #### [facility] [address] [place] [id number] [place] CO2 [Moles/Vol] 21.9 mmol/L Normal 21.0-31.0 [facility] Comment on above: Performed By: #### B MP, CBC #### [facility] [address] [place] [address] [place] Creatinine [Mass/Vol] 0.62 mg/dL Normal 0.60-1.20 [facility] Comment on above: Performed By: #### B MP, CBC #### [facility] [address] [place] [address] [place] Creatinine Clr Calc Pharmacy 148.42 [facility] Comment on above: Result Comment: PERF ORMED BY: [place] [address] PATHOLOGIST DATA GOVERNANCE ANALYST ZOE GUEVARA M.D. Performed By: #### B MP, CBC #### [place] [address] [place] GFR/1.73 sq M.predicted MDRD (S/P/Bld) [Vol rate/Area] mL/min/{1.73_m2} [facility] Comment on above: Performed By: #### B MP, CBC #### [place] [address] [place] Glucose [Mass/Vol] 133 mg/dL High 74-109 [facility] Comment on above: Result Comment: [place] Glucose Reference Range is dependent on time and content of last meal. Glucose of more than 200 mg/dL in a nonstressed, ambulatory subject supports the diagnosis of Diabetes Mellitus. ADA recommended reference range Performed By: #### B MP, CBC #### [facility] [address] [place] [address] [place] Potassium [Moles/Vol] 4.2 mmol/L Normal 3.5-5.1 [facility] Comment on above: Performed By: #### B MP, CBC #### [place] [address] [place] Sodium [Moles/Vol] 138 mmol/L Normal 136-145 [facility] Comment on above: Performed By: #### B MP, CBC #### [facility] [address] [place] [address] [place] Urea nitrogen [Mass/Vol] 21 mg/dL Normal 7-25 [facility] Comment on above: Performed By: #### B MP, CBC #### [facility] [address] [place] [address] [place] Basophils Auto (Bld) [#/Vol] Ordered By: Nery Blades on 07-04-2022 Basophils (Bld) [#/Vol] 0.0 10*3/uL 0.0-0.2 [facility] Basophils/100 WBC Auto (Bld) Ordered By: Nery Blades on 07-04-2022 Basophils/100 WBC (Bld) 0.2 % . [facility] Calcium [Mass/volume] in Ser um or PlasmaOrdered By: Nery Blades on 07-04-2022 Calcium [Mass/Vol] 8.4 mg/dL 8.6-10.3 [facility] Carbon dioxide, total [Moles /volume] in Serum or PlasmaOrdered By: Nery Blades on 07-04-2022 CO2 [Moles/Vol] 21.9 mmol/L 21.0-31.0 [facility] Chloride [Moles/volume] in S monika or PlasmaOrdered By: Nery Blades on 07-04-2022 Chloride [Moles/Vol] 107 mmol/L 98-107 [facility] Complete Blood Count Auto Di ffon 07-04-2022 Basophils (Bld) [#/Vol] 0.0 10*3/uL Normal 0.0-0.2 [facility] Comment on above: Result Comment: PERF ORMED BY: [facility] [address] [place] [address] PATHOLOGIST DATA GOVERNANCE ANALYST ZOE GUEVARA M.D. Performed By: #### B MP, CBC #### [facility] [address] [place] [address] [place] Basophils/100 WBC (Bld) 0.2 % Normal . [facility] Comment on above: Performed By: #### B MP, CBC #### [facility] [address] [place] [address] [place] Eosinophils (Bld) [#/Vol] 0.0 10*3/uL Normal 0.0-0.45 [facility] Comment on above: Performed By: #### B MP, CBC #### [facility] [address] [place] [address] [place] Eosinophils/100 WBC (Bld) 0.0 % Normal . [facility] Comment on above: Performed By: #### B MP, CBC #### [facility] [address] Erythrocyte distribution width (RBC) [Ratio] 15.2 % Normal 11.9-15.3 [facility] Comment on above: Performed By: #### B MP, CBC #### [facility] [address] Hematocrit (Bld) [Volume fraction] 35.3 % Normal 34.0-46.4 [facility] Comment on above: Performed By: #### B MP, CBC #### [facility] [address] Hemoglobin (Bld) [Mass/Vol] 12.0 g/dL Normal 11.8-15.4 [facility] Comment on above: Performed By: #### B MP, CBC #### [facility] [address] Lymphocytes (Bld) [#/Vol] 0.6 10*3/uL Low 1.00-4.8 [facility] Comment on above: Performed By: #### B MP, CBC #### [facility] [address] [place] [address] [place] Lymphocytes/100 WBC (Bld) 6.3 % Normal . [facility] Comment on above: Performed By: #### B MP, CBC #### [facility] [address] [place] [address] [place] MCH (RBC) [Entitic mass] 28.4 pg Normal 24.7-34.3 [facility] Comment on above: Performed By: #### B MP, CBC #### [facility] [address] MCV (RBC) [Entitic vol] 83.6 fL Normal 80-100 [facility] Comment on above: Performed By: #### B MP, CBC #### [facility] [address] Mean Corpuscular HGB Conc 34.0 g/dL Normal 32.0-35.0 [facility] Comment on above: Performed By: #### B MP, CBC #### [facility] [address] Monocytes (Bld) [#/Vol] 0.1 10*3/uL Normal 0.0-0.8 [facility] Comment on above: Performed By: #### B MP, CBC #### [facility] [address] Monocytes/100 WBC (Bld) 1.4 % Normal . [facility] Comment on above: Performed By: #### B MP, CBC #### [facility] [address] Neutrophils (Bld) [#/Vol] 9.0 10*3/uL High 1.8-7.7 [facility] Comment on above: Performed By: #### B MP, CBC #### [facility] [address] Neutrophils/100 WBC (Bld) 92.1 % Normal . [facility] Comment on above: Performed By: #### B MP, CBC #### [facility] [address] NRBC% 0.0 /100{WBC} Normal 0-0.5 [facility] Comment on above: Performed By: #### B MP, CBC #### [facility] [address] [place] [address] [place] Platelet mean volume (Bld) [Entitic vol] 7.0 fL Normal 6.3-10.7 [facility] Comment on above: Performed By: #### B MP, CBC #### [facility] [address] [place] [address] [place] Platelets (Bld) [#/Vol] 309 10*3/uL Normal 150-450 [facility] Comment on above: Performed By: #### B MP, CBC #### [facility] [address] [place] [address] [place] RBC (Bld) [#/Vol] 4.23 10*6/uL Normal 3.60-5.00 [facility] Comment on above: Performed By: #### B MP, CBC #### [facility] [address] WBC (Bld) [#/Vol] 9.8 10*3/uL Normal 3.8-11.6 [facility] Comment on above: Performed By: #### B MP, CBC #### [facility] [address] Creatinine [Mass/volume] in Serum or PlasmaOrdered By: Nery Rush on 07-04-2022 Creatinine [Mass/Vol] 0.62 mg/dL 0.60-1.20 [facility] Eosinophils Auto (Bld) [#/Vo l]Ordered By: Nery Rush on 07-04-2022 Eosinophils (Bld) [#/Vol] 0.0 10*3/uL 0.0-0.45 [facility] Eosinophils/100 WBC Auto (Bl d)Ordered By: Nery Blades on 07-04-2022 Eosinophils/100 WBC (Bld) 0.0 % . [facility] Erythrocyte distribution wid th Auto (RBC) [Ratio]Ordered By: Nery Rush on 07-04-2022 Erythrocyte distribution width (RBC) [Ratio] 15.2 % 11.9-15.3 [facility] Glucose [Mass/volume] in Ser um or PlasmaOrdered By: Nery Rush on 07-04-2022 Glucose [Mass/Vol] 133 mg/dL 74-109 [facility] Comment on above: ADA recommended refe rence rangeRandom Glucose Reference Range is dependent on time and content of last meal. Glucose of more than 200 mg/dL in a nonstressed, ambulatory subject supports the diagnosis of Diabetes Mellitus. Hematocrit Auto (Bld) [Volum e fraction]Ordered By: Nery Rush on 07-04-2022 Hematocrit (Bld) [Volume fraction] 35.3 % 34.0-46.4 [facility] Hemoglobin [Mass/volume] in BloodOrdered By: Nery Rush on 07-04-2022 Hemoglobin (Bld) [Mass/Vol] 12.0 g/dL 11.8-15.4 [facility] Laboratory - Chemistry and C hemistry - challengeOrdered By: Nery Rush on 07-04-2022 GFR/1.73 sq M.predicted MDRD (S/P/Bld) [Vol rate/Area] mL/min/{1.73_m2} [facility] Leukocytes [#/volume] correc ketan for nucleated erythrocytes in Blood by Automated counOrdered By: Nery Rush on 07-04-2022 WBC corrected for nucl RBC Auto (Bld) [#/Vol] 9.8 10*3/uL 3.8-11.6 [facility] Lymphocytes Auto (Bld) [#/Vo l]Ordered By: Nery Rush on 07-04-2022 Lymphocytes (Bld) [#/Vol] 0.6 10*3/uL 1.00-4.8 [facility] Lymphocytes/100 WBC Auto (Bl d)Ordered By: Nery Ambrosios on 07-04-2022 Lymphocytes/100 WBC (Bld) 6.3 % . [facility] MCH Auto (RBC) [Entitic mass ]Ordered By: Nery Rush on 07-04-2022 MCH (RBC) [Entitic mass] 28.4 pg 24.7-34.3 [facility] MCHC Auto (RBC) [Mass/Vol]Or dered By: Nery Rush on 07-04-2022 MCHC (RBC) [Mass/Vol] 34.0 g/dL 32.0-35.0 [facility] MCV Auto (RBC) [Entitic vol] Ordered By: Nery Ambrosios on 07-04-2022 MCV (RBC) [Entitic vol] 83.6 fL 80-100 [facility] Monocytes Auto (Bld) [#/Vol] Ordered By: Nery Ambrosios on 07-04-2022 Monocytes (Bld) [#/Vol] 0.1 10*3/uL 0.0-0.8 [facility] Monocytes/100 WBC Auto (Bld) Ordered By: Nery Blades on 07-04-2022 Monocytes/100 WBC (Bld) 1.4 % . [facility] Neutrophils Auto (Bld) [#/Vo l]Ordered By: Nery Blades on 07-04-2022 Neutrophils (Bld) [#/Vol] 9.0 10*3/uL 1.8-7.7 [facility] Neutrophils/100 WBC Auto (Bl d)Ordered By: Nery Blades on 07-04-2022 Neutrophils/100 WBC (Bld) 92.1 % . [facility] No Panel InformationOrdered By: Nery Ambrosios on 07-04-2022 Pharmacy Creatinine Clearance (Chem 148.42 [facility] Nucleated erythrocytes [Pres ence] in Blood by Automated countOrdered By: Nery Blades on 07-04-2022 Nucleated RBC Auto Ql (Bld) 0.0 /100{WBC} 0-0.5 [facility] Platelet mean volume Auto (B ld) [Entitic vol]Ordered By: Nery Blades on 07-04-2022 Platelet mean volume (Bld) [Entitic vol] 7.0 fL 6.3-10.7 [facility] Platelets Auto (Bld) [#/Vol] Ordered By: Nery Blades on 07-04-2022 Platelets (Bld) [#/Vol] 309 10*3/uL 150-450 [facility] Potassium [Moles/volume] in Serum or PlasmaOrdered By: Nery Blades on 07-04-2022 Potassium [Moles/Vol] 4.2 mmol/L 3.5-5.1 [facility] RBC Auto (Bld) [#/Vol]Ordere d By: Nery Blades on 07-04-2022 RBC (Bld) [#/Vol] 4.23 10*6/uL 3.60-5.00 [facility] Serum or plasma anion gap de terminationOrdered By: Nery Blades on 07-04-2022 Anion gap [Moles/Vol] 13.3 mmol/L 6.0-15.0 [facility] Sodium [Moles/volume] in Ser um or PlasmaOrdered By: Nery Rush on 07-04-2022 Sodium [Moles/Vol] 138 mmol/L 136-145 [facility] Urea nitrogen [Mass/volume] in Serum or PlasmaOrdered By: Nery Rush on 07-04-2022 Urea nitrogen [Mass/Vol] 21 mg/dL 7-25 [facility] WBC Auto (Bld) [#/Vol]Ordere d By: Nery Rush on 07-04-2022 WBC (Bld) [#/Vol] 9.8 10*3/uL 3.8-11.6 [facility] HCG ( test) IA.rapi d Ql (U)Ordered By: Manny Keene on 07-03-2022 HCG ( test) Ql (U) Negative [facility] HCG,Urineon 07-03-2022 Beta HCG ( test) Ql (U) Negative Normal [facility] Comment on above: Result Comment: PERF ORMED BY: [place] [address] PATHOLOGIST DATA GOVERNANCE ANALYST ZOE GUEVARA M.D. Performed By: #### U HCG #### [address] XR lumbar spine 1Von 023 XR lumbar spine 1V [facility] [place] [address] XRay Report Signed Patient: Yi Palomino MR#: [id number] : 1985 Acct:[id number] Age/Sex: 37 / F ADM Date: 07/03/22 Loc: Room: [address] [place] [address] Type: ADM IN Attending Dr: Nery Rush [...] Steven Nicole M.D.07/03/2022 7:09 PM Dictation Location: [facility] Transcribed By: [facility] 07/03/221908 Dictated By: Steven Nicole DO 07/03/221907 Signed By: 07/03/221908 [facility] CHEMISTRYOrdered By: SYSTEM SYSTEM on 06-13-2022 [...] rate/Area] mL/min/1.73 m2 Normal >=59mL/min/1 .73 m2 [facility] Chem S GFR/1.73 sq M.predicted among non-blacks MDRD (S/P/Bld) [Vol rate/Area] mL/min/1.73 m2 Normal >=59mL/min/1 .73 m2 [facility] Chem S Glucose [Mass/Vol] 90 mg/dL Normal 55 - 199 mg/dL [facility] Potassium [Moles/Vol] 4.2 mmol/L Normal 3.5 - 5.3 mmol/L [facility] Sodium [Moles/Vol] 135 mmol/L Normal 135 - 145 mmol/L [facility] Urea nitrogen [Mass/Vol] 21 mg/dL Normal 5 - 21 mg/dL [facility] Urea nitrogen/Creatinine [Mass ratio] 26 mg/mg High 10 - 20 [facility] HEMATOLOGYOrdered By: SYSTEM SYSTEM on 06-13-2022 [...] hCG Ql Negative (06/13/22 8:37 AM) Normal [facility] URINALYSISOrdered By: Jocelyn Bazzi on [...] AM) Normal Negative [facility] UA Auto SS Avis.plasma/Avis. RBC (Bld) [Mass ratio] 4-20 /HPF Normal [...] AM) Invalid Interpretation Code 1.005 - 1.030 [facility] UA Auto SS UA Spec Desc Clean Catch (06/13/22 10:37 AM) Normal [facility] UA Auto SS Urobilinogen Qn (U) [id number] {Donna'U}/dL Normal 0.0 - 1.0 EU/dL [facility] UA Auto SS WBC Auto Ql (U) 1+ *ABN* (06/13/22 10:37 AM) Invalid Interpretation Code Negative [facility] UA Auto SS WBC LM.HPF (Urine sed) [#/Area] /[HPF] Invalid Interpretation Code 0-5/HPF [facility] UA Auto SS XR Spine Lumbar Complete w/F vi AND Drake 06-08-2022 XR Spine Lumbar Complete w/Flex AND [...] by SAPPHIRE VILLANUEVA on 06/09/2022 1321 Normal [facility] 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[employer] Other Vital Signs Date Time Vital Sign Value Performing Clinician Facility 05-27-2024 10:31-0500 Blood Pressure Location Erin Chavez [facility] 05-27-2024 10:31-0500 Diastolic blood pressure 80 mm[Hg] Erin Pachecoe [facility] 05-27-2024 10:31-0500 Heart rate 64 /min Erin Pachecoe [facility] 05-27-2024 10:31-0500 Respiratory rate 18 /min Erin Lue [facility] 05-27-2024 10:31-0500 Systolic blood pressure 135 mm[Hg] Erin Lue [facility] 08-08-2022 11:00-0400 Body height 154.94 cm Nery Blades Other [facility] Other 08-08-2022 11:00-0400 Body mass index (BMI) [Ratio] 47.42 kg/m2 Nery Blades Other [employer] Other 08-08-2022 11:00-0400 Body weight 113.85 kg Nery Blades Other [facility] Other 08-08-2022 11:00-0400 Diastolic blood pressure 78 mm[Hg] Nery Blades Other [facility] Other 08-08-2022 11:00-0400 Systolic blood pressure 120 mm[Hg] Nery Blades Other [employer] Other 07-11-2022 11:30-0400 Body height 154.94 cm Nery Blades Other [facility] Other 07-11-2022 11:30-0400 Body mass index (BMI) [Ratio] 47.8 kg/m2 Nery Blades Other [facility] Other 07-11-2022 11:30-0400 Body weight 114.76 kg Nery Blades Other [employer] Other 07-11-2022 11:30-0400 Diastolic blood pressure 80 mm[Hg] Nery Blades Other [facility] [employer] Other 07-11-2022 11:30-0400 Systolic blood pressure 130 mm[Hg] Nery Blades Other [facility] [employer] website Other 07-04-2022 11:53-0400 Body temperature 97.9 [degF] MD Etta Mario Work Phone: [facility] 07-04-2022 11:53-0400 Diastolic blood pressure 69 mm[Hg] MD Etta Mario Work Phone: [facility] 07-04-2022 11:53-0400 Heart rate 75 /min MD Etta Mario Work Phone: [facility] 07-04-2022 11:53-0400 Respiratory rate 16 /min MD Etta Mario Work Phone: [facility] 07-04-2022 11:53-0400 SaO2% (BldA) [Mass fraction] 95 % MD Etta Mario Work Phone: [facility] 07-04-2022 11:53-0400 Systolic blood pressure 111 mm[Hg] MD Etta Mario Work Phone: [facility] 07-04-2022 06:00-0400 Body weight 113.8 kg MD Etta Mario Work Phone: [facility] 07-03-2022 19:25-0400 Inhaled oxygen flow rate 10 L/min MD Etta Mario Work Phone: [facility] 07-03-2022 16:00-0400 Body height 154.94 cm MD Etta Mario Work Phone: [facility] 07-03-2022 16:00-0400 Body mass index (BMI) [Ratio] 48.2 kg/m2 MD Etta Mario Work Phone: [facility] 06-29-2022 12:30-0400 Body height 154.94 cm Nery Blades Other [facility] [employer] website Other 06-29-2022 12:30-0400 Body mass index (BMI) [Ratio] 47.8 kg/m2 Nery Blades Other [facility] [employer] website Other 06-29-2022 12:30-0400 Body weight 114.76 kg Nery Blades Other [facility] [employer] website Other 06-13-2022 10:55-0500 Diastolic blood pressure 89 mm[Hg] Sebastien Owens [facility] 06-13-2022 10:55-0500 Heart rate 66 /min Sebastien Owens [facility] 06-13-2022 10:55-0500 Respiratory rate 18 /min Sebastien Owens [facility] 06-13-2022 10:55-0500 SaO2% (BldA) [Mass fraction] 98 % Sebastien Ownes [facility] 06-13-2022 10:55-0500 Systolic blood pressure 136 mm[Hg] Sebastien Owens [facility] 06-13-2022 10:19-0500 Diastolic blood pressure 76 mm[Hg] Sebastien Owens [facility] 06-13-2022 10:19-0500 Heart rate 67 /min Sebastien Jared [facility] 06-13-2022 10:19-0500 Mean blood pressure 95 mm[Hg] Sebastien Owens [facility] 06-13-2022 10:19-0500 Respiratory rate 20 /min Sebastien Owens [facility] 06-13-2022 10:19-0500 SaO2% (BldA) [Mass fraction] 100 % Sebastien Owens [facility] 06-13-2022 10:19-0500 Systolic blood pressure 132 mm[Hg] Sebastien Owens [facility] 06-13-2022 08:18-0500 Body temperature 98.42 [degF] Sebastien Owens [facility] 06-13-2022 08:18-0500 Diastolic blood pressure 57 mm[Hg] Sebastien Owens [facility] 06-13-2022 08:18-0500 Heart rate 78 /min Sebastien Owens [facility] 06-13-2022 08:18-0500 Respiratory rate 18 /min Sebastien Owens [facility] 06-13-2022 08:18-0500 SaO2% (BldA) [Mass fraction] 100 % Sebastien Owens [facility] 06-13-2022 08:18-0500 Systolic blood pressure 117 mm[Hg] Sebastien Owens [facility] 01-12-2021 15:45-0400 Body height 154.94 cm Nalini Ginty Other Workspace Other 01-12-2021 15:45-0400 Body temperature 97.9 [degF] Nalini Ginty Other Works[employer] Other 01-12-2021 15:45-0400 SaO2% (BldA) [Mass fraction] 98 % Nalini Ginty Other Works[employer] Other Encounters Encounter Date Encounter Type Care Provider Facility Start: 09-09-2024 [facility]:Alexis Cortez Start: 06-30-2024 End: 06-30-2024 ambulatory YI BRAEDEN Not Available Start: 06-08-2024 End: 06-08-2024 ambulatory Erin Chavez Facility:[facility] Start: 06-08-2024 End: 06-08-2024 Patient encounter procedure Erin Chavez [facility] Start: 05-27-2024 End: 05-27-2024 Clinisync Result Encounter Generic External Data Provider [facility] Unsolicited Start: 05-27-2024 End: 05-27-2024 Clinisync Result Encounter Generic External Data Provider [facility] External Department Unsolicited Start: 05-27-2024 End: 05-27-2024 ambulatory Erin Chavez Facility:CD:[id number] Start: 05-27-2024 End: 05-27-2024 ambulatory Erin Chavez Facility:[facility] Start: 05-27-2024 End: 05-27-2024 Patient encounter procedure Erin Chavez [facility] Start: 05-26-2024 ambulatory Erin Chavez Facility:[facility]is Jimenez Start: 05-25-2024 End: 05-25-2024 Telephone encounter Yi Irvnig NP Work Phone: [facility] Start: 05-23-2024 End: 05-25-2024 Chart abstracting Glo Antoine MD Work Phone: [facility] Start: 05-22-2024 End: 05-27-2024 Clinisync Result Encounter Generic External Data Provider [facility] External Department Unsolicited Start: 05-22-2024 End: 05-27-2024 Clinisync Result Encounter Generic External Data Provider [facility] External Department Unsolicited Start: 07-04-2023 End: 07-04-2023 ambulatory RASHAAD BURCH Not Available Start: 08-08-2022 End: 08-08-2022 ambulatory Nery Blades Other Workspace Other Start: 08-08-2022 Postop follow up vis it related to original px Nery Blades [facility] Start: 08-03-2022 End: 08-03-2022 ambulatory Nery Blades Other Workspace Other Start: 08-03-2022 Telephone encounter Nery Blades [facility] Start: 07-30-2022 End: 07-30-2022 ambulatory Nery Blades Other Workspace Other Start: 07-30-2022 Telephone encounter Nery Blades [facility] Neurosurgery Start: 07-26-2022 End: 07-26-2022 ambulatory Nery Blades Other Workspace Other Start: 07-26-2022 Telephone encounter Nery Blades [facility] Neurosurgery Start: 07-11-2022 Postop follow up vis it related to original px Nery Blades [facility] Neurosurgery Start: 07-11-2022 End: 07-11-2022 ambulatory MD Etta Mario Work Phone: [facility] Work Phone: Start: 07-11-2022 End: 07-11-2022 Patient encounter procedure MD Etta Mario Work Phone: [facility] [place] Work Phone: Start: 07-07-2022 End: 07-07-2022 ambulatory Nery Blades Other Workspace Other Start: 07-07-2022 Telephone encounter Nery Blades [facility] Neurosurgery Start: 07-05-2022 End: 07-05-2022 ambulatory Drake Sánchez Other Workspace Other Start: 07-05-2022 Telephone encounter Drake Sánchez [facility] [employer] Start: 07-03-2022 End: 07-04-2022 Evaluation and management of inpatient Etta Mario Facility:[facility] Start: 07-03-2022 Admission to [facility] Nery Blades [facility] Start: 07-03-2022 End: 07-03-2022 ambulatory Nery Blades Other [facility] [employer] website Other Start: 07-03-2022 Patient encounter procedure Nery Blades [facility] Start: 07-03-2022 End: 07-04-2022 Evaluation and management of inpatient MD Etta Mario Work Phone: [facility] Work Phone: Start: 06-29-2022 End: 06-29-2022 ambulatory Nery Blades Other [place] [employer] Other Start: 06-29-2022 Office outpatient ne w 30 minutes Nery Blades [facility] Neurosurgery Start: 06-13-2022 End: 06-13-2022 Emergency department patient visit Sebastien Owens [facility] Start: 06-11-2022 End: 06-11-[address] [...] MD Etta Mario Work Phone: Appendectomy Erin Chavez Cholecystectomy Erin Chavez Excision of lumbar intervertebral disc Erin Chavez Plan of Treatment Date Care Activity Detail Author Start: 03-13-2027 Screening for malignant neoplasm of cervix [facility] Start: 12-15-2023 Influenza vaccination Influenza Vaccine (#1) [facility] Start: 07-04-2022 [facility] Start: 07-03-2022 Hospital admission [facility] Start: 07-03-2022 Excision of Lumbosacral Joint, Open Approach Excision of Lumbosacral Joint, Open Approach [facility] Start: 2007 Screening for malignant neoplasm of cervix Pap Smear [facility] Bacteria identified in Urine by Culture URINE CULTURE, ROUTINE Lab Routine 05/22/2024 10:40 PM EST [facility] Patient Education Radiculopathy (DC) [facility] Work Phone: Patient referral [facility] Work Phone: Immunizations Immunization Date Immunization Notes Care Provider Fa cility 05-18-2019 tetanus toxoid, redu ernie diphtheria toxoid, and acellular pertussis vaccine, adsorbed Glo Antoine MD Work Phone: [facility] Healthcare Payers Date Payer Category Payer Unknown [id number] 2023 [facility] er [id number] 2023 Unknown [id number] 2022 Self-pay 1985 Unknown [id number] 1986 Unknown [id number] 727 1986 Unknown [id number]. 727 1986 Unknown [id number]. 727 1986 Unknown [id number]. 727 1986 Unknown [id number] [id number]. 727 1986 Unknown [id number] [id number]. 1259 1986 Unknown [id number]. 1259 1959 Blue Cross Blue [facility] [id number] Unknown [id number] Unknown [id number] 531 Unknown [id number] 531 Social History Date Type Detail Facility Unknown if ever smoked Workspace Other Start: 09-26-2022 End: 10-23-2022 Sex Assigned At [facility] Tobacco [facility] Comment on above: denies Tobacco smoking status No Smokin g Status Entered [facility] Start: 07-03-2022 End: 05-27-2024 Tobacco smoking status NHIS Never smoked tobacco (finding) [facility] Comment on above: denies Start: 1985 Sex Assigned At Female F [facility] Start: 09-25-2022 Tobacco use and exposure Smokeless tobacco non-user [facility] Start: 07-04-2023 Alcoholic beverage intake Ex-drinker (finding) [facility] Start: 09-26-2022 End: 10-23-2022 History of Social function [facility] Within the last year , have you been afraid of your partner or ex-partner? No [facility] How often do you attend sabianist or mormonism services? Patient declined [facility] Comment on [...] Not at all [facility] (I/We) worried hazel er (my/our) food would run out before (I/we) got money to buy more. Never true [facility] Start: 1985 Sex assigned at Not on file [facility] Goals Date Patient Goal Desired Activity /State Functional Status Date Assessment Result Facility 06-08-2024 Functional Status N/A [facility] 05-27-2024 Functional Status N/A [facility] 07-04-2022 Functional status Patient at Baseline [facility] Work Phone: 06-13-2022 Functional Status N/A [facility] Mental Status Date Assessment Result Facility 07-04-2022 Cognitive function Cognitive Sta tus Patient at Baseline [facility] Work Phone: Clinical Notes 01-12-2021 to 06-08-2024 Telephone Encounter - Yi Irving NP - 05/25/2024 1:45 PM ESTTelephone Encounter - Yi Irving NP - 05/25/2024 1:45 PM EST Note Date & Type Note Facility 06-08-2024 Hospital Discharg e instructions Patient Education 06/08/2024 12:09:55 Dietary Guidelines to Help Prevent Kidney Stones Dietary Guidelines to Help Prevent Kidney Stones Kidney stones are deposits of minerals and salts that form inside your kidneys. Your risk of developing kidney stones may be greater depending on your diet, your lifestyle, the medicines you take, and whether you have certain medical conditions. Most people can lower their risks of developing kidney stones by following these dietary guidelines. Your dietitian may give you more specific instructions depending on your overall health and the type of kidney stones you tend to develop. What are tips for following this plan? Reading food labels Choose foods with no salt added or low-salt labels. Limit your salt (sodium) intake to less than 1,500 mg a day. Choose foods with calcium for each meal and snack. Try to eat about 300 mg of calcium at each meal. Foods that contain 200 500 mg of calcium a serving include: ?8 oz (237 mL) of milk, qwqkiux-akywfgmrrsif-ntheq milk, and calcium-fortifiedfruit juice. Calcium-fortified means that calcium has been added to these drinks. ?8 oz (237 mL) of kefir, yogurt, and soy yogurt. ?4 oz (114 g) of tofu. ?1 oz (28 g) of cheese. ?1 cup (150 g) of dried figs. ?1 cup (91 g) of cooked broccoli. ?One 3 oz (85 g) can of sardines or mackerel. Most people need 1,000 1,500 mg of calcium a day. Talk to your dietitian about how much calcium is recommended for you. Shopping Buy plenty of fresh fruits and vegetables. Most people do not need to avoid fruits and vegetables, even if these foods contain nutrients that may contribute to kidney stones. When shopping for convenience foods, choose: ?Whole pieces of fruit. ?Pre-made salads with dressing on the side. ?Low-fat fruit and yogurt smoothies. Avoid buying frozen meals or prepared deli foods. These can be high in sodium. Look for foods with live cultures, such as yogurt and kefir. Choose high-fiber grains, such as whole-wheat breads, oat bran, and wheat cereals. Cooking Do not add salt to food when cooking. Place a salt shaker on the table and allow each person to add their own salt to taste. Use vegetable protein, such as beans, textured vegetable protein (TVP), or tofu, instead of meat in pasta, casseroles, and soups. Meal planning Eat less salt, if told by your dietitian. To do this: ?Avoid eating processed or pre-made food. ?Avoid eating fast food. Eat less animal protein, including cheese, meat, poultry, or fish, if told by your dietitian. To do this: ?Limit the number of times you have meat, poultry, fish, or cheese each week. Eat a diet free of meat at least 2 days a week. ?Eat only one serving each day of meat, poultry, fish, or seafood. ?When you prepare animal proteins, cut pieces into small portion sizes. For most meat and fish, one serving is about the size of the palm of your hand. Eat at least five servings of fresh fruits and vegetables each day. To do this: ?Keep fruits and vegetables on hand for snacks. ?Eat one piece of fruit or a handful of berries with breakfast. ?Have a salad and fruit at lunch. ?Have two kinds of vegetables at dinner. You may be told to limit foods that are high in a substance called oxalate. These include: ?Spinach (cooked), rhubarb, beets, sweet potatoes, and Norwegian chard. ?Peanuts. ?Potato chips, citizen of [place] fries, and baked potatoes with skin on. ?Nuts and nut products. ?Chocolate. If you regularly take a diuretic medicine, make sure to eat at least 1 or 2 servings of fruits or vegetables that are high in potassium each day. These include: ?Avocado. ?Banana. ?[place], prune, carrot, or tomato juice. ?Baked potato. ?Cabbage. ?Beans and split peas. Lifestyle Drink enough fluid to keep your urine pale yellow. This is the most important thing you can do. Spread your fluid intake throughout the day. If you drink alcohol: ?Limit how much you have to: ?0 1 drink a day for women who are not . ?0 2 drinks a day for men. ?Know how much alcohol is in your drink. In the [place] one drink equals one 12 oz bottle of beer (355 mL), one 5 oz glass of wine (148 mL), or one 1 oz glass of hard liquor (44 mL). Lose weight if told by your health care provider. Work with your dietitian to find an eating plan and weight loss strategies that work best for you. General information Talk to your health care provider and dietitian about taking daily supplements. Depending on your health and the cause of your kidney stones, you may be told: ?Do not take high-dose supplements of vitamin C (1,000 mg a day or more). ?To take a calcium supplement. ?To take a daily probiotic supplement. ?To take other supplements such as magnesium, fish oil, or vitamin B6. Take cfwk-sfb-kdtxiti and prescription medicines only as told by your health care provider. These include supplements. What foods should I limit? Limit your intake of the following foods, or eat them as told by your dietitian. Vegetables Spinach. Rhubarb. Beets. Canned vegetables. Pickles. Olives. Baked potatoes with skin. Grains Wheat bran. Baked goods. Salted crackers. Cereals high in sugar. Meats and other proteins Nuts. Nut butters. Large portions of meat, poultry, or fish. Salted, precooked, or cured meats, such as sausages, meat loaves, and hot dogs. Dairy Cheeses. Beverages Regular soft drinks. Regular vegetable juice. Seasonings and condiments Seasoning blends with salt. Salad dressings. Soy sauce. Ketchup. Barbecue sauce. Other foods Canned soups. Canned pasta sauce. Casseroles. Pizza. Lasagna. Frozen meals. Potato chips. Polish fries. The items listed above may not be a complete list of foods and beverages you should limit. Contact a dietitian for more information. What foods should I avoid? Talk to your dietitian about specific foods you should avoid based on the type of kidney stones you have and your overall health. Fruits Grapefruit. The item listed above may not be a complete list of foods and beverages you should avoid. Contact a dietitian for more information. Summary Kidney stones are deposits of minerals and salts that form inside your kidneys. You can lower your risk of kidney stones by making changes to your diet. The most important thing you can do is drink enough fluid. Drink enough fluid to keep your urine pale yellow. Talk to your dietitian about how much calcium you should have each day, and eat less salt and animal protein as told by your dietitian. This information is not intended to replace advice given to you by your health care provider. Make sure you discuss any questions you have with your health care provider. Document Revised: 07/12/2022 Document Reviewed: 07/12/2022 [employer] Patient Education 2023 [employer]. 06/08/2024 12:09:55 EU - Cystoscopy with Stent Removal Discharge Instructions (CUSTOM) Cystoscopy with Stent Removal Voiding after the procedure: there may be some pain, burning, urgency, frequency and blood tinged urine following the procedure. These symptoms usually resolve within 2-5 days. Drink the amount of fluid it takes to keep the urine pink to yellow or clear in color. Drinking enough water and fluids will help to ease any discomfort after your procedure. If you are having problems that seem out of the ordinary, please call. If unable to contact your physician and you feel it is an emergency, go to the nearest emergency room or call 911 Diet you may resume your normal diet. Activity you may resume your normal activities Call if you have a fever over 100 degrees. Follow Up Care 06/01/2024 08:59:07 With:Erin Chavez Address: [address] [place] [phone] Business (1) When: Unknown Comments:Office to schedule follow up in 2-3 months with renal US and metabolic stone workup [facility] 06-08-2024 Note Patient Education Cystoscopy with Stent Removal ??? Voiding after the procedure: there may be some pain, burning, urgency, frequency and blood tinged urine following the procedure. These symptoms usually resolve within 2-5 days. Drink the amount of fluid it takes to keep the urine pink to yellow or clear in color. Drinking enough water and fluids will help to ease any discomfort after your procedure. ??? If you are having problems that seem out of the ordinary, please call. ??? If unable to contact your physician and you feel it is an emergency, go to the nearest emergency room or call 911 ??? Diet ??? you may resume your normal diet. ??? Activity ??? you may resume your normal activities ??? Call if you have a fever over 100 degrees. Nephrology Dietary Guidelines to Help Prevent Kidney Stones Kidney stones are deposits of minerals and salts that form inside your kidneys. Your risk of developing kidney stones may be greater depending on your diet, your lifestyle, the medicines you take, and whether you have certain medical conditions. Most people can lower their risks of developing kidney stones by following these dietary guidelines. Your dietitian may give you more specific instructions depending on your overall health and the type of kidney stones you tend to develop. What are tips for following this plan? Reading food labels ??? Choose foods with no salt added or low-salt labels. Limit your salt (sodium) intake to less than 1,500 mg a day. ??? Choose foods with calcium for each meal and snack. Try to eat about 300 mg of calcium at each meal. Foods that contain 200?500 mg of calcium a serving include: ? 8 oz (237 mL) of milk, ehjnnts-dvzzdopbnvdu-nydoo milk, and calcium-fortifiedfruit juice. Calcium-fortified means that calcium has been added to these drinks. ? 8 oz (237 mL) of kefir, yogurt, and soy yogurt. ? 4 oz (114 g) of tofu. ? 1 oz (28 g) of cheese. ? 1 cup (150 g) of dried figs. ? 1 cup (91 g) of cooked broccoli. ? One 3 oz (85 g) can of sardines or mackerel. Most people need 1,000?1,500 mg of calcium a day. Talk to your dietitian about how much calcium is recommended for you. Shopping ??? Buy plenty of fresh fruits and vegetables. Most people do not need to avoid fruits and vegetables, even if these foods contain nutrients that may contribute to kidney stones. ??? When shopping for convenience foods, choose: ? Whole pieces of fruit. ? Pre-made salads with dressing on the side. ? Low-fat fruit and yogurt smoothies. ??? Avoid buying frozen meals or prepared deli foods. These can be high in sodium. ??? Look for foods with live cultures, such as yogurt and kefir. ??? Choose high-fiber grains, such as whole-wheat breads, oat bran, and wheat cereals. Cooking ??? Do not add salt to food when cooking. Place a salt shaker on the table and allow each person to add their own salt to taste. ??? Use vegetable protein, such as beans, textured vegetable protein (TVP), or tofu, instead of meat in pasta, casseroles, and soups. Meal planning ??? Eat less salt, if told by your dietitian. To do this: ? Avoid eating processed or pre-made food. ? Avoid eating fast food. ??? Eat less animal protein, including cheese, meat, poultry, or fish, if told by your dietitian. To do this: ? Limit the number of times you have meat, poultry, fish, or cheese each week. Eat a diet free of meat at least 2 days a week. ? Eat only one serving each day of meat, poultry, fish, or seafood. ? When you prepare animal proteins, cut pieces into small portion sizes. For most meat and fish, one serving is about the size of the palm of your hand. ??? Eat at least five servings of fresh fruits and vegetables each day. To do this: ? Keep fruits and vegetables on hand for snacks. ? Eat one piece of fruit or a handful of berries with breakfast. ? Have a salad and fruit at lunch. ? Have two kinds of vegetables at dinner. ??? You may be told to limit foods that are high in a substance called oxalate. These include: ? Spinach (cooked), rhubarb, beets, sweet potatoes, and Norwegian chard. ? Peanuts. ? Potato chips, citizen of the [place] fries, and baked potatoes with skin on. ? Nuts and nut products. ? Chocolate. ??? If you regularly take a diuretic medicine, make sure to eat at least 1 or 2 servings of fruits or vegetables that are high in potassium each day. These include: ? Avocado. ? Banana. ? [place], prune, carrot, or tomato juice. ? Baked potato. ? Cabbage. ? Beans and split peas. Lifestyle ??? Drink enough fluid to keep your urine pale yellow. This is the most important thing you can do. Spread your fluid intake throughout the day. ??? If you drink alcohol: ? Limit how much you have to: ? 0?1 drink a day for women who are not . ? 0?2 drinks a day for men. ? Know how much alcohol is in your drink. In the [place] one drink equals one 12 oz bottle of b (more content not included)... [facility] 05-27-2024 Hospital Discharg e instructions Patient Education [...] Follow these instructions at home: Medicines Take lutk-swj-dhuvmwm and prescription medicines only as told by [...] to keep your pee pale yellow. ?Take sjyh-nnb-eaxvadq or prescription medicines. ?Eat foods that are [...] provider. Document Revised: 11/30/2022 Document Reviewed: 11/30/2022 [employer] Patient Education 2023 [employer] 05/27/2024 11:29:14 Laser Therapy for Kidney [...] including vitamins, herbs, eye drops, creams, and plyq-mst-mgmfnwt medicines. Any problems you or family members [...] unless your provider tells you to. ?Taking aeql-wnp-edtqtya medicines, vitamins, herbs, and supplements. Tests You [...] provider. Document Revised: 11/30/2022 Document Reviewed: 11/30/2022 [employer] Patient Education 2023 [employer] Follow Up Care 05/26/2024 15:06:33 With:Scott RIVERA, MARKO Shaikh, URO Address: [address], [place] [address] [phone] When: Unknown [facility] 05-27-2024 Note Patient Education Nephrology [...] these instructions at home: Medicines ??? Take wlcb-ojw-hntcpsc and prescription medicines only as told by [...] keep your pee pale yellow. ? Take doeg-muk-hhagxlx or prescription medicines. ? Eat foods that [...] provider. Document Revised: 11/30/2022 Document Reviewed: 11/30/2022 [employer] Patient Education ? 2023 [employer]. Laser Therapy for Kidney Stones Laser therapy [...] including vitamins, herbs, eye drops, creams, and ehmv-ibd-mvxnmqe medicines. ??? Any problems you or family [...] and drink. Thes (more content not included)... [facility] 05-25-2024 Telephone encount er Note Will need TCM call completed. Make sure she has urology appointment scheduled. Her imaging from the hospital showed her spleen was enlarged as well and she should be evaluated by hematology, and she has an ovarian cyst which we should repeat US in 3 months to reassess. Let me know if agreeable [facility] 05-25-2024 Miscellaneous Notes Formattin g of this [...] know if agreeable documented in this encounter [facility] 08-08-2022 Evaluation note Encounter Date Diagnosis Assessment Notes Jul, Lumbar radiculopathy (ICD-10 - M54.16) Workspace Other 03-29-2023 Evaluation note* Encounter Date Diagnosis Assessment Notes Treatment Notes Treatment Clinical Notes Jun, Lumbosacral disc herniation (ICD-10 - M51.27) Workspace Other 03-22-2023 Discharge summary Author Nery Rush [facility] July 04, 2022 8:11am Note Date/Time July 04, 2022 8:1 1am [facility] [address] [place] [address] Discharge Summary Signed Patient: Yi Palomino MR#: [id number] : 1985 Acct:[id number] Age/Sex: 37 / F Adm Date: 3 Loc: 4N Room: [address] [place] [address]: Nery Rush MD Copies to: [...] % (Auto) 92.1, Lymph % (Auto) 6.3, [place] % (Auto) 1.4, Eos % (Auto) 0.0, Baso % (Auto) 0.2, Nucleat RBC Rel Count 0.0, Neut # (Auto) 9.0 H, Lymph # (Auto) 0.6 L, [place] # (Auto) 0.1, Eos # (Auto) 0.0, [...] signed by Nery Rush MD> 07/04/22 0811 [facility] Work Phone: 1(218) 189-193803-22-2023 Progress note Author Nery Rush [facility] July 04, 2022 7:57am Note Date/Time July 04, 2022 7:5 7am [facility] [address] [place] [address] Neurosurgery Progress Note Signed Patient: Yi Palomino MR#: [id number] : 1985 Acct:[id number] Age/Sex: 37 / F Adm Date: 3 Loc: 4N Room: 9K1258-8 Type: ADM IN Attending Dr: Nery Rush [...] Creatinine Clear 148.42, Sodium 138, Potassium 4.2, [id number], Carbon Dioxide 21.9, Anion Gap 13.3, BUN 21, Creatinine 0.62, Est GFR (CKD-EPI) > 60.0, Glucose 133 H, Calcium 8.4 L 07/04/22 04:43: Corrected WBC 9.8, Uncorrected WBC Count 9.8, RBC 4.23, Hgb 12.0, Hct 35.3, MCV 83.6, MCH 28.4, MCHC 34.0, RDW 15.2, Plt Count 309, MPV 7.0,Neut % (Auto) 92.1, Lymph % (Auto) 6.3, [place] % (Auto) 1.4, Eos % (Auto) 0.0, Baso % (Auto) 0.2, Nucleat RBC Rel Count 0.0, Neut # (Auto) 9.0 H, Lymph # (Auto) 0.6 L, [place] # (Auto) 0.1, Eos # (Auto) 0.0, [...] She will be discharged with pain medication ([place]) and a muscle relaxant (Tizanidine). Code(s): M54.16 - Radiculopathy, lumbar region Status: Acute Time Spent With Patient (min): 30 Documented By: Nery Rush MD 07/04/22 075 0 Signed By: <Electronically signed by Nery Rush MD> 07/04/22 0757 [facility] Work Phone: 1(194) 189-734203-21-2023 History and physical note Author Nery Rush [facility] July 03, 2022 1:40pm Note Date/Time July 03, 2022 1:4 1pm [facility] [address] [place] [address] Neurosurgery H&P Signed Patient: Yi Palomino MR#: [id number] : 1985 Acct:[id number] Age/Sex: 37 / F Adm Date: 3 Loc: 4N Room: 8V8091-3 Type: ADM IN Attending Dr: Nery Rush [...] Medical History (Updated 07/03/22 @ 12:25 by J[facility]LEEN [facility]) No pertinent past medical history Surgical History [...] signed by Nery Rush MD> 07/03/22 1340 [facility] Work Phone: 1(870) 217-500303-17-2023 Evaluation note* Encounter Date Diagnosis Assessment Notes Treatment Notes Treatment Clinical Notes Jun, Lumbar radiculopathy (ICD-10 - M54.16) Workspace Other 03-01-2023 Evaluation + Plan noteExtracted from: Title:ED Note Author:Ray Sharif PA-C e:06/13/22 Sciatic pain (M54.30: Sciati ca, unspecified side) Urinary tract infection (N39.0: Urinary tract infection, site not specified) Orders: acetaminophen-oxycodone, 1 tab(s), Oral, q4hr for pain, 12 tab(s), [facility](s) [facility], cm, 06/13/22 8:29:00 EST, Height/Length Dosing, 115, kg, 06/13/22 8:29:00 EST, Weight Dosing cephalexin, 500 mg = 1 cap(s), Oral, q12hr, X 7 day(s), # 14 cap(s), Refills(s) 0, Pharmacy: [facility], 154, cm, 06/13/22 8:29:00 EST, Height/Length Dosing, 115, kg, 06/13/22 8:29:00 EST, Weight Dosing Diagnostic Tests Pending * Urine Culture 06/13/22 [facility]03-01-2023 Hospital Discharge instructions Patient Education 06/13/2022 11:: Sciatica, Ksvz-dg-Kvrl Sciatica Sciatica is pain, weakness, tingling, or [...] Follow these instructions at home: Medicines Take dlyj-vsv-xrvvcbg and prescription medicines only as told by your doctor. Ask your doctor if the medicine prescribed to you: ?Requires you to avoid driving or using heavy machinery. ?Can cause trouble pooping (constipation). You may need to take these steps to prevent or treat trouble pooping: ?Drink enough fluids to keep your pee (urine) pale yellow. ?Take uvan-gvx-qdxdipz or prescription medicines. ?Eat foods that are [...] 01/08/2009 Document Revised: 04/20/2019 Document Reviewed: 04/20/2019 [employer] Patient Education 2020 [place]. Follow Up Care 06/13/2022 08:14:31 With:[facility] Physical Therapy Department Address:Unknown When:06/16/2022 10:46:54 With:XXXX NONE Address: [place] When:Within 3 Day(s) [facility]09-30-2021 Evaluation note* Encounter Date Diagnosis Assessment [...] Patient care instructions given in writting by [facility] Care At Home document Workspace Other Evaluation + Plan note Future Appointments Appointment Date:09/09/2024 10:45:00 AM Scheduled Provider:Scott RIVERA, Erin Calderón Location:[facility] Appointment Type:URO Office Visit [facility] Evaluation note* Diagnosis Onset Date Resolution Status Intractable back pain acute Lumbar radiculopathy acute Unable to ambulate acute [facility] Work Phone: Evaluation noteNo InformationNortEn[facility] website Other History general Narrative - Reported* Type Description Date Surgical History cholecystectomy Surgical History appendectomy Surgical History cyst removal right ovary Surgical History left ovary removed Hospitalization History see above surgical hx Workspace Other [facility] general Narrative - Reported* Type Description Date Surgical History cholecystectomy Surgical History appendectomy Surgical History cyst removal right ovary Surgical History left ovary removed Surgical History lumbar discectomy - left L5-S1 2022 Hospitalization History see above surgical hx Workspace Other Hospital course Narrative No data available for this section [facility] No data available for this section [facility] Summary Purpose Family History No Family History Records Found Relationship Condition Age at Onset Recorded Date/T alissa Not Specified Coronary artery disease Unknown grandparent Malignant neoplasm Unknown Advance Directives No Advanced Directives Records Found Advance Directive Response Recorded Date/ Time Advance Directives No July 03, 023 9:47am Chief Complaint and Reason for [...] Lumbosacral disc her niation (M51.27) Referral Organization [facility] Referring Provider First Name Nery Referring Provider Last Name Blades Referring Provider Specialty Neurologica l Surgery Referred Organization [facility] Referred Address [address],[place], [place],[address] Referred Provider Specialty Physical The rapist Referral Priority Routine Reason CANCELLED Left L5- S1 epidural ; PLEASE TRY TO SCHEDULE PAOLA Diagnosis 1 Lumbosacral disc her niation (M51.27) Referral Organization [facility] Referring Provider First Name Nery Referring Provider Last Name Victor Manuel Referring Provider Specialty Neurologica l Surgery Referred Organization [facility] Referred Provider Drake Sánchez Referred Address [address] [address] ,[place], [place],[address] Referred Provider Specialty Pain Medicin e Referral [...] section and content) DATE CREATED AUTHOR 06/10/2022 [facility] dical Specialist DATE CREATED AUTHOR AUTHOR'S ORGANIZ ATION 06/14/2022 [facility] DATE CREATED AUTHOR AUTHOR'S ORGANIZ ATION 08/21/2022 [facility] DATE CREATED AUTHOR AUTHOR'S ORGANIZ ATION 06/09/2024 [facility] DATE CREATED AUTHOR AUTHOR'S ORGANIZ ATION 07/03/2024 [facility] dical Specialists EPIC Care Teams (unrecognized sec tion and content) Personnel Name: ARASH RIVERA, GLO Theodore Address: Address: [address] [place] [id number] Development Mechanic Relationship Specialty Start Date End Date Glo Antoine MD [address] [facility] [place] [address] PCP - General Family Medicine 09/26/22 Yi Irving NP [address] [place], [place] [id number] [facility] Team Status: Active Member Role Status Dates Etta Mario MD Primary Care Provider Active Team Status: Inactive Member Role Status Dates Etta Mario MD Primary Care Provider Active Beth Gusman [facility] Emergency Provider Active Nery Rush MD [...] BE BASED ON THE PRIMARY CLINICAL RECORDS. [facility] [employer] provides no warranty or guarantee of the accuracy or completeness of information in this document.
== END 2024-07-04 11:05 | disposition home or self-care (01) ==
LOC: US 11:04
PROVIDERS: PCP Family Medicine; Visit Provider Urology
DX: N13.2 Hydronephrosis with renal and ureteral calculous obstruction (principal); N83.291 Other ovarian cyst, right side
CPT/HCPCS: 76775